=== PATIENT | male | born 1935 | race Caucasian/White ===

== ENCOUNTER 2017-06-24 17:23 | Inpatient (IN) | payer OTHER, BC ==
--- NOTE | 2017-06-24 17:26 | PDOC ---
History of Present Illness - General History Source: Patient, Family Exam Limitations: No Limitations - History of Present Illness Initial Comments: 06/24/17 18:30 The patient is an 82-year-old male, accompanied by and family, with a significant past medical history of anemia, hairy cell leukemia (1995), colonic polyp, and HTN, who presents to the ED with weakness today. As per , the patient has been coughing at night for the past few days. He visited his PCP, Dr. Davis, who had advised the patient that he might have a virus. The patients symptoms progressively worsened after the visit, as his noted that he was not eating well and sleeping more often. This morning the patient noted that his urine appeared red in color so he decided to visit Dr. Vargas office. During his visit, the pt was unable to give a urine sample and was noted to have a low O2 stat. The patient was advised to visit the ED for further evaluation. The patient has been followed by Dr. Vivas for his leukemia for 21 years. He is currently not on chemotherapy. He last received immune therapy 2 years ago which went well. His leukemia is under control and he visits Dr. Vivas's office every month to get blood work done. The patient denies any fever, chills, nausea, vomiting, diarrhea, or abdominal pain. He denies any shortness of breath or chest pain. Social Hx: Social Drinker PCP: Dr. Davis Oncologist: Dr. Vivas <Katja Jackson - Last Filed: 06/24/17 18:39> <Sera Woodard - Last Filed: 06/24/17 21:14> <Adrian Bundy - Last Filed: 06/27/17 10:23> - General Chief Complaint: Weakness Stated Complaint: weakness Time Seen by Provider: 06/24/17 17:24 Past History <Katja Jackson - Last Filed: 06/24/17 18:39> <Sera Woodard - Last Filed: 06/24/17 21:14> - Past Medical History Anemia: Yes Asthma: No Cancer: Yes (HAIRY CELL LEUKEMIA CHEM 1995) Cardiac Disorders: No CVA: No COPD: No CHF: No Dementia: No Diabetes: No GI Disorders: Yes (COLONIC POLYP) Disorders: No HTN: Yes Hypercholesterolemia: No Liver Disease: No Seizures: No Thyroid Disease: No - Surgical History Abdominal Surgery: No Appendectomy: No Cardiac Surgery: No Cholecystectomy: No Lung Surgery: No Neurologic Surgery: No Orthopedic Surgery: Yes (SURGERY ON RIGHT FOOT) - Suicide/Smoking/Psychosocial Hx Smoking History: Former smoker Have you smoked in the past 12 months: No Number of Cigarettes Smoked Daily: 0 If you are a former smoker, when did you quit?: 64 YEARS Hx Alcohol Use: No Drug/Substance Use Hx: No Substance Use Type: None Hx Substance Use Treatment: No <Adrian Bundy - Last Filed: 06/27/17 10:23> - Past Medical History Allergies/Adverse Reactions: Allergies Allergy/AdvReac Type Severity Reaction Status Date / Time No Known Allergies Allergy Verified 06/24/17 17:30 Home Medications: Ambulatory Orders Propranolol HCl [Inderal] 160 mg PO DAILY 12/31/12 Terazosin HCl [Hytrin] 5 mg PO HS 12/31/12 Review of Systems - Review of Systems Able to Perform ROS?: Yes Comments:: 06/24/17 18:30 CONSTITUTIONAL: Present: generalized weakness, fatigue, loss of appetite Absent: fever, chills, diaphoresis HEENT: Absent: rhinorrhea, nasal congestion, throat pain, throat swelling, difficulty swallowing, mouth swelling, ear pain, eye pain, visual Changes CARDIOVASCULAR: Absent: chest pain, syncope, palpitations, irregular heart rate, lightheadedness , peripheral edema RESPIRATORY: Present: cough Absent: shortness of breath, dyspnea with exertion, orthopnea, wheezing, stridor , hemoptysis GASTROINTESTINAL: Absent: abdominal pain, abdominal distension, nausea, vomiting, diarrhea, constipation, melena, hematochezia GENITOURINARY: Present: hematuria Absent: dysuria, frequency, urgency, hesitancy, flank pain, genital pain MUSCULOSKELETAL: Absent: myalgia, arthralgia, joint swelling SKIN: Absent: rash, itching, pallor HEMATOLOGIC/IMMUNOLOGIC: Absent: easy bleeding, easy bruising, lymphadenopathy, frequent infections ENDOCRINE: Absent: unexplained weight gain, unexplained weight loss, heat intolerance, cold intolerance NEUROLOGIC: Absent: headache, focal weakness or paresthesias, dizziness, unsteady gait, seizure, mental status changes, bladder or bowel incontinence PSYCHIATRIC: Absent: anxiety, depression, suicidal or homicidal ideation, hallucinations. <Katja Jackson - Last Filed: 06/24/17 18:39> *Physical Exam - Vital Signs Last Vital Signs Temp Pulse Resp BP Pulse Ox 98.1 F 84 20 113/44 85 L 06/24/17 17:23 06/24/17 17:23 06/24/17 17:23 06/24/17 17:23 06/24/17 17:23 - Physical Exam Comments: 06/24/17 18:32 GENERAL: Well developed, well nourished. Awake and alert. No acute distress. Vital signs showed an initial O2 saturation of 85% which improved with 91-93% with 3 liters of nasal cannula. The rest of the vitals were stable. HEENT: (+)Mucous membranes were somewhat dry. Normocephalic, atraumatic. PERRLA, EOMI. No conjunctival pallor. Sclera are non-icteric. Oropharynx is clear. NECK: Supple. Full ROM. No JVD. Carotid pulses 2+ and symmetric, without bruits. No thyromegaly. No lymphadenopathy. CARDIOVASCULAR: Regular rate and rhythm. No murmurs, rubs, or gallops. Distal pulses are 2+ and symmetric. PULMONARY: (+)Hypoxic but did not complaining of shortness of breath. He appeared mildly tachypneic and dyspneic. There were rales at the left base posteriorly. ABDOMINAL: Soft. Non-tender. Non-distended. No rebound or guarding. No organomegaly. Normoactive bowel sounds. MUSCULOSKELETAL Normal range of motion at all joints. No bony deformities or tenderness. No CVA tenderness. EXTREMITIES: No cyanosis. No clubbing. No edema. No calf tenderness. SKIN: Warm and dry. Normal capillary refill. No rashes. No jaundice. NEUROLOGICAL: Alert, awake, appropriate. Alert and oriented x3. PSYCHIATRIC: Cooperative. Good eye contact. Appropriate mood and affect. <Katja Jackson - Last Filed: 06/24/17 18:39> - Vital Signs Last Vital Signs Temp Pulse Resp BP Pulse Ox 98.1 F 84 22 96/57 91 L 06/24/17 17:23 06/24/17 19:55 06/24/17 19:55 06/24/17 19:55 06/24/17 19:55 <Sera Woodard - Last Filed: 06/24/17 21:14> ED Treatment Course - LABORATORY CBC & Chemistry Diagram: 06/24/17 17:38 06/24/17 17:38 - ADDITIONAL ORDERS Additional order review: Laboratory Results 06/24/17 06/24/17 06/24/17 17:38 17:38 17:38 PT with INR 15.9 H INR 1.43 H Sodium 129 L Potassium 3.4 L Chloride 93 L Carbon Dioxide 24 Anion Gap 12 BUN 53 H D Creatinine 1.5 H D Creat Clearance w eGFR 44.69 Random Glucose 130 H Calcium 8.1 L Total Bilirubin 5.3 H D AST 256 H D ALT 275 H D Alkaline Phosphatase 101 H D Creatine Kinase 27 L Troponin I < 0.03 L Total Protein 5.4 L Albumin 2.0 L D Alcohol, Quantitative 5.3 06/24/17 17:38 RBC 2.89 L MCV 90.0 MCHC 33.1 RDW 17.2 H MPV 8.0 D Neutrophils % 89.0 H D Lymphocytes % 4.8 L D Monocytes % 5.9 D Eosinophils % 0.2 Basophils % 0.1 <Katja Jackson - Last Filed: 06/24/17 18:39> - LABORATORY CBC & Chemistry Diagram: 06/24/17 17:38 06/24/17 17:38 - ADDITIONAL ORDERS Additional order review: Laboratory Results 06/24/17 06/24/17 06/24/17 17:38 17:38 17:38 PT with INR 15.9 H INR 1.43 H Sodium 129 L Potassium 3.4 L Chloride 93 L Carbon Dioxide 24 Anion Gap 12 BUN 53 H D Creatinine 1.5 H D Creat Clearance w eGFR 44.69 Random Glucose 130 H Calcium 8.1 L Total Bilirubin 5.3 H D AST 256 H D ALT 275 H D Alkaline Phosphatase 101 H D Creatine Kinase 27 L Troponin I < 0.03 L Total Protein 5.4 L Albumin 2.0 L D Alcohol, Quantitative 5.3 06/24/17 17:38 RBC 2.89 L MCV 90.0 MCHC 33.1 RDW 17.2 H MPV 8.0 D Neutrophils % 89.0 H D Lymphocytes % 4.8 L D Monocytes % 5.9 D Eosinophils % 0.2 Basophils % 0.1 - Medications Given in the ED: ED Medications Discontinued Medications Generic Name Dose Route Start Last Admin Trade Name Freq PRN Reason Stop Dose Admin Sodium Chloride 250 mls @ 500 mls/hr 06/24/17 18:49 06/24/17 18:54 Normal Saline - IV 06/24/17 19:18 500 mls/hr ASDIR STA Administration Vancomycin HCl 1,000 mg/ 250 mls @ 200 mls/hr 06/24/17 19:17 06/24/17 19:35 Dextrose IVPB 06/24/17 20:31 200 mls/hr ONCE ONE Administration Piperacillin/Tazobactam/Dextrose 3.375 gm 06/24/17 19:18 06/24/17 19:38 Zosyn 3.375gm Ivpb (Premix) IVPB 06/24/17 19:19 3.375 gm ONCE ONE Administration <Sera Woodard - Last Filed: 06/24/17 21:14> - LABORATORY CBC & Chemistry Diagram: 06/27/17 05:45 06/27/17 05:45 <Adrian Bundy - Last Filed: 06/27/17 10:23> Medical Decision Making - Medical Decision Making Patient with low oxygen saturation but no acute respiratory distress. Chest x- ray reveals extensive infiltrate in the left lung. History of hairy cell leukemia for many years which is in remission, no treatment for 2 years Physical exam reveals no tachypnea or dyspnea, but oxygen saturation on room air in the mid 80s, improving to 90 with 2 L nasal cannula. There are rales at the left base posteriorly. Dr. Vivas, oncologist contacted. He states that the patient is stable with regard to his leukemia. He runs white blood count of approximately 1.5, normal H &H, and 80-100,000 platelets. He has had no recent serious medical problems Cultures were obtained and empiric antibiotics were begun. Patient signed out to Dr. Woodard 7 PM pending admission to the hospitalist service and further medical management. Stable clinically and hemodynamically during her entire ER stay. <Adrian Bundy - Last Filed: 06/27/17 10:23> *DC/Admit/Observation/Transfer - Attestations Scribe Attestion: 06/24/17 18:36 Documentation prepared by Katja Jackson, acting as ophthalmic medical technician for Adrian Bundy MD. <Katja Jackson - Last Filed: 06/24/17 18:39> - Discharge Dispostion Admit: Yes <Sera Woodard - Last Filed: 06/24/17 21:14> <Adrian Bundy - Last Filed: 06/27/17 10:23> Diagnosis at time of Disposition: Pneumonia Qualifiers: Pneumonia type: due to unspecified organism Laterality: left Lung location: unspecified part of lung Qualified Code(s): J18.9 - Pneumonia, unspecified organism - Discharge Dispostion Condition at time of disposition: Guarded
[2017-06-24 17:51] LABS: BASOPHIL 0.1 % (0-2.0); EOSINOPHIL 0.2 % (0-4.5); MCH 29.8 pg (25.7-33.7); MCHC 33.1 g/dl (32.0-35.9); PLATELET COUNT 207 K/MM3 (134-434); RDW 17.2 % (11.9-15.9); WHITE BLOOD COUNT 3.5 K/mm3 (4.0-10.8)
[2017-06-24 17:57] LABS: INR 1.43 (0.82-1.09); PROTHROMBIN TIME (PATIENT) 15.9 SEC (10.2-13.0)
[2017-06-24 18:04] LABS: ALK PHOS 101 U/L (32-92); ANION GAP 12 (8-16); BILIRUBIN,TOTAL 5.3 mg/dl (0.2-1.0); CALCIUM 8.1 mg/dl (8.4-10.2); CO2 24 mmol/L (22-28); CPK 27 IU/L (39-308); CREATININE 1.5 mg/dl (0.6-1.3); GLUCOSE,RANDOM 130 mg/dl (74-106); SGOT/AST 256 U/L (10-42); SGPT/ALT 275 U/L (10-40); TOT PROT 5.4 g/dl (6.4-8.3)
[2017-06-24 18:14] LABS: TROPONIN I (DFP) < 0.03 ng/ml (0.03-0.50)
[2017-06-24] MEDS ORDERED: SODIUM CHLORIDE 250 ML IV STA (18:49)
[2017-06-24] MEDS ORDERED: SODIUM CHLORIDE 1,000 ML IV SCH (19:00)
[2017-06-24] MEDS ORDERED: VANCOMYCIN 1,000 MG in DEXTROSE 5%-WATER - 250 ML IVPB ONE (19:17)
[2017-06-24] MEDS ORDERED: PIPERACIL/TAZOB 3.375 GM 3.375 GM/50 ML PREMIX IVPB ONE (19:18)
[2017-06-24] MEDS ORDERED: VANCOMYCIN 1,000 MG VIAL (RESTRICTED TO ID ONLY) ONE (19:37)
[2017-06-24] MEDS ORDERED: PIPERACILLIN/TAZOBACTAM 3.375 GM VIAL IVPB ONE (19:38)
[2017-06-24] MEDS ORDERED: PIPERACILLIN/TAZOB 3.375 GM/50 ML PRE-DOCKED IVPB ONE (19:45)
--- NOTE | 2017-06-24 20:26 | PDOC ---
*Physical Exam - Vital Signs Last Vital Signs Temp Pulse Resp BP Pulse Ox 98.1 F 84 22 96/57 91 L 06/24/17 17:23 06/24/17 19:55 06/24/17 19:55 06/24/17 19:55 06/24/17 19:55 ED Treatment Course - LABORATORY CBC & Chemistry Diagram: 06/24/17 17:38 06/24/17 17:38 - ADDITIONAL ORDERS Additional order review: Laboratory Results 06/24/17 06/24/17 06/24/17 17:38 17:38 17:38 PT with INR 15.9 H INR 1.43 H Sodium 129 L Potassium 3.4 L Chloride 93 L Carbon Dioxide 24 Anion Gap 12 BUN 53 H D Creatinine 1.5 H D Creat Clearance w eGFR 44.69 Random Glucose 130 H Calcium 8.1 L Total Bilirubin 5.3 H D AST 256 H D ALT 275 H D Alkaline Phosphatase 101 H D Creatine Kinase 27 L Troponin I < 0.03 L Total Protein 5.4 L Albumin 2.0 L D Alcohol, Quantitative 5.3 06/24/17 17:38 RBC 2.89 L MCV 90.0 MCHC 33.1 RDW 17.2 H MPV 8.0 D Neutrophils % 89.0 H D Lymphocytes % 4.8 L D Monocytes % 5.9 D Eosinophils % 0.2 Basophils % 0.1 - Medications Given in the ED: ED Medications Discontinued Medications Generic Name Dose Route Start Last Admin Trade Name Freq PRN Reason Stop Dose Admin Sodium Chloride 250 mls @ 500 mls/hr 06/24/17 18:49 06/24/17 18:54 Normal Saline - IV 06/24/17 19:18 500 mls/hr ASDIR STA Administration Piperacillin/Tazobactam/Dextrose 3.375 gm 06/24/17 19:18 06/24/17 19:38 Zosyn 3.375gm Ivpb (Premix) IVPB 06/24/17 19:19 3.375 gm ONCE ONE Administration Progress Note - Progress Note Progress Note: Care of this patient received from Dr. Kirby. Case discussed with ROXANA Pugh. Patient admitted with acute pneumonia (left-sided consolidation) to [facility] ( ) Clinical presentation and laboratory evaluation also revealed DEWAYNE, likely related to poor oral intake over the last few days and subsequent dehydration. Patient received vancomycin and Zosyn IV as per Dr. Whitt here in the emergency room. He continued to be comfortable without significant dyspnea or other acute complaints during the time he was awaiting transfer upstairs. Lactic acid level was added to his laboratory evaluation. (Result = 1.6) *DC/Admit/Observation/Transfer Diagnosis at time of Disposition: Pneumonia - Discharge Dispostion Condition at time of disposition: Guarded - Referrals - Patient Instructions - Post Discharge Activity
--- NOTE | 2017-06-24 22:42 | HP ---
CHIEF COMPLAINT: Malaise, cough PCP: Susan; Hematology: Sangeetha HISTORY OF PRESENT ILLNESS: This is an 82 year old male with a past medical history of anemia, hairy cell leukemia, colon polyp, HTN who presented to the ED with general malaise, lethargy and cough. He was seen by his PCP one week ago who felt it was viral but when his symptoms became worse he went to his PCP again today who noted low oxygen sat and sent pt to the ED. Pt also reports discolored urine last week, states it was red and so it must be blood. Upon exam pt remains lethargic, mild cough. Pt states cough is productive of yellow phlegm. pt denies abdominal pain , diarrhea, vomiting, constipation, change in color or consistency of stool. ER course was notable for: (1) CXR c/w PNA (2) WBC 3.5 (3) elevated LFTs Recent Travel: pt denies PAST MEDICAL HISTORY: HTN anemia haiury cell leukemia x 21 years, last treatment 2y ago, immunotherapy colon polyp, normal colonoscopy 2012 atomic test PAST SURGICAL HISTORY: R foot surgery Social History: Smoking: pt denies Alcohol: pt denies Drugs: pt denies Family History: atomic test 1950s mother age 98, old age father age 63, in his sleep 2 siblings, both with HTN 2 children, one accidental , one no medical problems Allergies No Known Allergies Allergy (Verified 06/24/17 17:30) HOME MEDICATIONS: 3 Medication Instructions Recorded Propranolol HCl [Inderal] 160 mg PO DAILY 12/31/12 Terazosin HCl [Hytrin] 5 mg PO HS 12/31/12 REVIEW OF SYSTEMS CONSTITUTIONAL: Present: generalized weakness, malaise Absent: fever, chills, diaphoresis, loss of appetite, weight change HEENT: Absent: rhinorrhea, nasal congestion, throat pain, throat swelling, difficulty swallowing, mouth swelling, ear pain, eye pain, visual changes CARDIOVASCULAR: Absent: chest pain, syncope, palpitations, irregular heart rate, lightheadedness , peripheral edema RESPIRATORY: Present: cough, shortness of breath Absent: dyspnea with exertion, orthopnea, wheezing, stridor, hemoptysis GASTROINTESTINAL: Absent: abdominal pain, abdominal distension, nausea, vomiting, diarrhea, constipation, melena, hematochezia GENITOURINARY: Present: hematuria Absent: dysuria, frequency, urgency, hesitancy, flank pain, genital pain MUSCULOSKELETAL: Absent: myalgia, arthralgia, joint swelling, back pain, neck pain SKIN: Absent: rash, itching, pallor HEMATOLOGIC/IMMUNOLOGIC: Absent: easy bleeding, easy bruising, lymphadenopathy, frequent infections ENDOCRINE: Absent: unexplained weight gain, unexplained weight loss, heat intolerance, cold intolerance NEUROLOGIC: Absent: headache, focal weakness or paresthesias, dizziness, unsteady gait, seizure, mental status changes, bladder or bowel incontinence PSYCHIATRIC: Absent: anxiety, depression, suicidal or homicidal ideation, hallucinations. PHYSICAL EXAMINATION Vital Signs - 24 hr 3 06/24/17 06/24/17 06/24/17 17:23 19:09 19:55 Temperature 98.1 F Pulse Rate 84 84 Pulse Rate [ 78 Apical] Respiratory 20 25 H 22 Rate Blood Pressure 113/44 Blood Pressure 95/54 96/57 [Right Arm] O2 Sat by Pulse 85 L 91 L 91 L Oximetry (%) GENERAL: Awake, alert, and fully oriented, in no acute distress. HEAD: Normal with no signs of trauma. EYES: Pupils equal, round and reactive to light, extraocular movements intact, sclera icteric, conjunctiva clear. No lid lag. EARS, NOSE, THROAT: Ears normal, nares patent, oropharynx clear without exudates. Moist mucous membranes. NECK: Normal range of motion, supple without lymphadenopathy, JVD, or masses. LUNGS: clear to auscultation right lung field, diminished left upper, crackles left lower. No wheezes. No accessory muscle use. HEART: Regular rate and rhythm, normal S1 and S2 without murmur, rub or gallop. ABDOMEN: Soft, nontender, not distended, normoactive bowel sounds, no guarding, no rebound, no masses. No hepatomegaly or splenomegaly. MUSCULOSKELETAL: Normal range of motion at all joints. No bony deformities or tenderness. No CVA tenderness. UPPER EXTREMITIES: 2+ pulses, warm, well-perfused. No cyanosis. No clubbing. No peripheral edema. LOWER EXTREMITIES: 2+ pulses, warm, well-perfused. No calf tenderness. No peripheral edema. NEUROLOGICAL: Cranial nerves II-XII intact. Normal speech. Normal gait. PSYCHIATRIC: Cooperative. Good eye contact. Appropriate mood and affect. SKIN: Warm, dry, normal turgor, no rashes or lesions noted, normal capillary refill. Laboratory Results - last 24 hr 3 06/24/17 06/24/17 06/24/17 06/24/17 17:38 17:38 17:38 21:01 WBC 3.5 L D RBC 2.89 L Hgb 8.6 L D Hct 26.0 L D MCV 90.0 MCH 29.8 MCHC 33.1 RDW 17.2 H Plt Count 207 D MPV 8.0 D Neutrophils % 89.0 H D Lymphocytes % 4.8 L D Monocytes % 5.9 D Eosinophils % 0.2 Basophils % 0.1 PT with INR 15.9 H INR 1.43 H Sodium 129 L Potassium 3.4 L Chloride 93 L Carbon Dioxide 24 Anion Gap 12 BUN 53 H D Creatinine 1.5 H D Creat Clearance w eGFR 44.69 Random Glucose 130 H Lactic Acid 1.6 Calcium 8.1 L Total Bilirubin 5.3 H D AST 256 H D ALT 275 H D Alkaline Phosphatase 101 H D Creatine Kinase 27 L Troponin I < 0.03 L Total Protein 5.4 L Albumin 2.0 L D Alcohol, Quantitative 5.3 CXR: cardiomegaly and diffuse left lung consolidation ECG: NSR Vent rate 82, QTC [address]/T changes ASSESSMENT/PLAN: 82yM with PMH HTN, anemia, hairy cell leukemia, colon polyp, HTN presented with generalized weakness, lethargy, SOB. Pneumonia-community acquired - received zosyn and vanc in ED - Change to zithromax and ceftriaxone as no recent healthcare facility exposure - cont oxygen 3L NC to maintain ox sat above 90 - Consider pulmonology consult - consider chest CT Elevated LFTs - unknown etiology. Denies eating at [employer] (recent Hep A outbreak) - hepatitis acute panel, hepatic function panel in am - abdominal sono in am DEWAYNE - likely due to hypovolemia - NS @ 150cc/hr overnight then reassess ? BPH - pt on terazosin but not in history, pt initially did not void, bladder scan done 615, but when pt informed of cath voided 600mL - cont terazosin and cont monitoring urine output anemia/leukemia - appears stable at present. Cont to monitor CBC DVT PPX - heparin 5000u q8h FEN - NS @ 150cc/hr overnight, then reassess - BMP in am - NPO for sono in am Dispo: pt currently requires inpatient management of his emergent condition. Visit type - Emergency Visit Emergency Visit: Yes ED Registration Date: 06/24/17 Care time: The patient presented to the Emergency Department on the above date and was hospitalized for further evaluation of their emergent condition. - New Patient This patient is new to me today: Yes Date on this admission: 06/24/17 - Critical Care Critical Care patient: No
[2017-06-24 23:26] LABS: PH,URINE 5.5 (4.5-8); URINE APPEARANCE Cloudy; URINE BILIRUBIN 2+ (NEGATIVE); URINE BLOOD Negative (NEGATIVE); URINE GLUCOSE (UA) Negative (NEGATIVE); URINE KETONE Negative (NEGATIVE); URINE LEUK ESTERASE Negative (NEGATIVE); URINE NITRITE Negative (NEGATIVE); URINE UROBILINOGEN >=8.0 E.U./dl (0.2-1.0)
[2017-06-24 23:27] LABS: URINE COLOR DK YELLOW; URINE PROTEIN 1+ (NEGATIVE)
[2017-06-24 23:35] LABS: URINE BACTERIA MODERATE /hpf (NEGATIVE); URINE RBC 0-1 /hpf (0-3)
[2017-06-24 23:46] VITALS: BMI 25.7
[2017-06-25] MEDS ORDERED: CEFTRIAXONE 1 G/50 ML PREMIX 1 ML IVPB SCH (02:00)
[2017-06-25] MEDS ORDERED: AZITHROMYCIN IVPB 500 MG in DEXTROSE 5%-WATER - 250 ML IVPB SCH (02:00)
[2017-06-25] MEDS: HEPARIN NA (PORCINE) 5,000 UNITS/ML 1ML VIAL SQ SCH ×3 (06:31→21:36)
--- NOTE | 2017-06-25 07:46 | PN ---
Physical Exam: SUBJECTIVE: Patient seen and examined, patient reports ongoing cough, denies any chest pain or shortness of breath. OBJECTIVE: patient is a 82 y/o male with a past medical history of anemia, hairy cell leukemia, colon polyp, and HTN. Patient was admitted from the emergency department for emergent condition. Vital Signs Period Temp Pulse Resp BP Sys/Puentes Pulse Ox Last 24 Hr 98.1 F-98.4 F 78-90 18-25 95-113/44-57 85-93 GENERAL: The patient is awake, alert, and fully oriented, in no acute distress. HEAD: Normal with no signs of trauma. EYES: PERRL, extraocular movements intact, sclera anicteric, conjunctiva clear. No ptosis. ENT: Ears normal, nares patent, oropharynx clear without exudates, moist mucous membranes. NECK: Trachea midline, full range of motion, supple. LUNGS: Breath sounds equal, clear to apexes, crackles to left base, moderately diminished, no wheezes, no accessory muscle use. HEART: Regular rate and rhythm, S1, S2 without murmur, rub or gallop. ABDOMEN: Soft, nontender, nondistended, normoactive bowel sounds, no guarding, no rebound, + hepatosplenomegaly, no masses. EXTREMITIES: 2+ pulses, warm, well-perfused, no edema. NEUROLOGICAL: Cranial nerves II through XII grossly intact. Normal speech, gait not observed. PSYCH: Normal mood, normal affect. SKIN: + jaundice, Warm, dry, normal turgor, no rashes or lesions noted Laboratory Results - last 24 hr CBC WBC 2.5 K/mm3 (4.0-10.8) L 06/25/17 07:30 RBC 2.42 M/mm3 (4.00-5.60) L 06/25/17 07:30 Hgb 7.2 GM/dl (11.7-16.9) L D 06/25/17 07:30 Hct 22.0 % (35.4-49) L D 06/25/17 07:30 MCV 90.9 fl (80-96) 06/25/17 07:30 MCH 29.9 pg (25.7-33.7) 06/25/17 07:30 MCHC 32.9 g/dl (32.0-35.9) 06/25/17 07:30 RDW 17.3 % (11.9-15.9) H 06/25/17 07:30 Plt Count 177 K/MM3 (134-434) 06/25/17 07:30 MPV 8.5 fl (7.5-11.1) 06/25/17 07:30 Neutrophils % No Result Required. 06/25/17 07:30 Neutrophils % (Manual) 89.0 % (42.8-82.8) H 06/25/17 07:30 Band Neutrophils % 11.0 % (0-10) H 06/25/17 07:30 Lymphocytes % No Result Required. 06/25/17 07:30 Monocytes % 5.9 % (3.8-10.2) D 06/24/17 17:38 Eosinophils % 0.2 % (0-4.5) 06/24/17 17:38 Basophils % 0.1 % (0-2.0) 06/24/17 17:38 Platelet Estimate Adequate 06/25/17 07:30 Platelet Comment No Result Required. 06/25/17 07:30 CMP Sodium 134 mmol/L (136-145) L 06/25/17 07:30 Potassium 3.4 mmol/L (3.5-5.1) L 06/25/17 07:30 Chloride 100 mmol/L (98-107) 06/25/17 07:30 Carbon Dioxide 25 mmol/L (22-28) 06/25/17 07:30 Anion Gap 9 (8-16) 06/25/17 07:30 BUN 47 mg/dl (7-18) H 06/25/17 07:30 Creatinine 1.3 mg/dl (0.6-1.3) 06/25/17 07:30 Creat Clearance w eGFR 44.69 (>60) 06/24/17 17:38 Random Glucose 143 mg/dl (74-106) H 06/25/17 07:30 Lactic Acid 1.6 mmol/L (0.4-2.0) 06/24/17 21:01 Calcium 7.4 mg/dl (8.4-10.2) L 06/25/17 07:30 Phosphorus 4.0 mg/dl (2.5-4.6) 06/25/17 07:30 Magnesium 2.2 mg/dL (1.8-2.4) 06/25/17 07:30 Total Bilirubin 4.3 mg/dl (0.2-1.0) H 06/25/17 07:30 Direct Bilirubin 3.0 mg/dL (0.0-0.3) H 06/25/17 07:30 AST 131 U/L (10-42) H D 06/25/17 07:30 ALT 182 U/L (10-40) H D 06/25/17 07:30 Alkaline Phosphatase 74 U/L (32-92) D 06/25/17 07:30 Creatine Kinase 27 IU/L (39-308) L 06/24/17 17:38 Troponin I < 0.03 ng/ml (0.03-0.50) L 06/24/17 17:38 Total Protein 4.5 g/dl (6.4-8.3) L 06/25/17 07:30 Albumin 1.6 g/dl (3.5-5.0) L 06/25/17 07:30 Total Amylase 45 U/L (25-125) 06/25/17 07:30 Lipase 43 U/L (22-51) 06/25/17 07:30 Active Medications Generic Name Dose Route Start Last Admin Trade Name Freq PRN Reason Stop Dose Admin Heparin Sodium (Porcine) 5,000 unit 06/25/17 06:00 06/25/17 06:31 Heparin - SQ 5,000 unit TID JIHAN Administration Sodium Chloride 1,000 mls @ 150 mls/hr 06/24/17 19:00 06/24/17 19:00 Normal Saline - IV 150 mls/hr ASDIR JIHAN Administration Azithromycin 500 mg/ Dextrose 250 mls @ 250 mls/hr 06/25/17 02:00 06/25/17 01 :15 IVPB 250 mls/hr DAILY JIHAN Administration CEFTRIAXONE 1 G/50 ML PREMIX 1 mls @ 2 mls/hr 06/25/17 02:00 06/25/17 01:14 Ceftriaxone 1 Gm-D5w Bag IVPB 2 mls/hr DAILY JIHAN Administration Propranolol HCl 160 mg 06/25/17 10:00 Inderal La - PO DAILY JIHAN Terazosin HCl 5 mg 06/25/17 22:00 Hytrin - PO HS JIHAN IMAGING chest xray cardiomegly left lung consilidation ASSESSMENT/PLAN: 1) pulmonary Pneumonia-community acquired - zosyn/van (06/24/17), zithromax (06/24-) and rocephin (06/24-), continue, no leukocytosis, patient is afebrile - pending urine antigens, blood cultures - keep spo2 above 92%, with supplemental O2 as needed 2) GI tranasanimits - likely secondary to pna vs hairy cell leukaemia - abdominal ultrasound--> hepatomegaly, gallbladder sludge, no acute cholecysitis - ast/alt trending downward, alkphos wnl, amylase/lipase wnl - pending hepatitis panel - GI, Dr Traore consulted and following 3) nephrology acute kidney injury - creatine 1.3 close to baseline of 1.1, secondary to hypovolemia - repeat bmp in am, close monitoring, strict i/o 4) heme/onc normocytic anemia - hgb 7.2, likely dilutional vs hx of hairy cell leukaemia - repeat cbc in am, will transfuse if less than 7 - appreciate oncology input, Dr Vivas, patient's private oncologist 5) BPH - continue terazosin, no signs of urinary retention noted on exam - monitor i/o DVT PPX - heparin 5000u q8h FEN - low sodium diet - hyponatremia secondary to hypovolamia sodium trending upward - replete potassium Dispo: pt currently requires inpatient management of his emergent condition. Visit type - Emergency Visit Emergency Visit: Yes ED Registration Date: 06/24/17 Care time: The patient presented to the Emergency Department on the above date and was hospitalized for further evaluation of their emergent condition. - New Patient This patient is new to me today: Yes Date on this admission: 06/25/17 - Critical Care Critical Care patient: No - Discharge Referral Referred to [facility] No
[2017-06-25 07:56] LABS: MCH 29.9 pg (25.7-33.7); MCHC 32.9 g/dl (32.0-35.9); MEAN CELL VOLUME 90.9 fl (80-96); MEAN PLT VOLUME 8.5 fl (7.5-11.1); PLATELET COUNT 177 K/MM3 (134-434); RDW 17.3 % (11.9-15.9); WHITE BLOOD COUNT 2.5 K/mm3 (4.0-10.8)
[2017-06-25 08:04] LABS: ALBUMIN 1.6 g/dl (3.5-5.0); ALK PHOS 74 U/L (32-92); ANION GAP 9 (8-16); BILIRUBIN,TOTAL 4.3 mg/dl (0.2-1.0); CALCIUM 7.4 mg/dl (8.4-10.2); CO2 25 mmol/L (22-28); CREATININE 1.3 mg/dl (0.6-1.3); GLUCOSE,RANDOM 143 mg/dl (74-106); MAGNESIUM 2.2 mg/dL (1.8-2.4); SGOT/AST 131 U/L (10-42); SGPT/ALT 182 U/L (10-40); TOT PROT 4.5 g/dl (6.4-8.3)
[2017-06-25 08:42] LABS: PLATELET ESTIMATE ADEQUATE
--- NOTE | 2017-06-25 08:53 | EKG ---
Test Reason : Blood Pressure : / mmHG Vent. Rate : 082 BPM Atrial Rate : 082 BPM P-R Int : 168 ms QRS Dur : 092 ms QT Int : 388 ms P-R-T Axes : 045 -05 051 degrees QTc Int : 453 ms NORMAL SINUS RHYTHM NORMAL ECG NO PREVIOUS ECGS AVAILABLE Confirmed by SHAD VERDUZCO MD ([id number] on 06/25/2017 8:53:06 AM Referred By: MD LANG Confirmed By:SHAD VERDUZCO MD
[2017-06-25] MEDS ORDERED: POTASSIUM CHLORIDE TABS 20 MEQ TABLET.ER (FP) PO ONE (10:30)
[2017-06-25 10:33] LABS: AMYLASE 45 U/L (25-125)
[2017-06-25] MEDS ORDERED: PT OWN MED DRAWER 7, Y5N ONE (10:59)
--- NOTE | 2017-06-25 11:00 | PN ---
Progress Note (short form) - Note Progress Note: Patient seen and chart/labs reviewed. Consult note dictated. Patient with likely elevated LFTs due to combination of underlying infection/ pneumonia (elevated transaminases) and Gilbert's syndrome - causing rise in bilirubin during the acute infection. Today's LFTs are improving and sonogram shows gallstones but no biliary ductal dilatation of obstruction (and alk phos -normal) Patient without abdominal pain and states he is hungry. Rec : follow LFTs advance diet as tolerated if bili remains elevated,obtain direct/indirect fractionation of bilirubin( elevated unconjugated bili in Gilbert's)
[2017-06-25] MEDS: ALBUTEROL SO4 2.5/IPRATROPIUM 0.5 INH SOL 3 ML VIAL.NEB. NEB SCH ×2 (11:41→17:51)
[2017-06-25] MEDS ORDERED: SODIUM CHLORIDE 0.9%/KCL 20 MEQ/1,000 ML INFUS.BAG IV SCH (13:00)
--- NOTE | 2017-06-25 13:39 | CONS ---
DATE OF CONSULTATION: 06/25/2017 REASON FOR CONSULTATION: Asked to evaluate this 82-year-old gentleman with elevated liver chemistries and mild jaundice. HISTORY OF PRESENT ILLNESS: The patient is an 82-year-old gentleman with a diagnosis of hairy cell leukemia, benign colonic polyps, hypertension, and anemia. He was admitted via the emergency room with malaise, lethargy, and cough and felt to most likely have a pneumonia. The patient had a chest x-ray also consistent with pneumonia, and his blood work at the time of admission showed a total bilirubin of 5.3 with an AST of 258, ALT of 275, and an alkaline phosphatase of 101. He had also a mildly low serum sodium of 129. His white count was 3.5 with a hemoglobin of 8.6, hematocrit 26, and a platelet count of 207. The patient has received IV antibiotics and has had an x-ray which showed diffuse left lung consolidation consistent with pneumonia. He also had a sonogram of the upper abdomen which showed gallbladder sludge and stones without evidence of cholecystitis, a mildly enlarged liver, and no evidence of biliary ductal dilatation. PHYSICAL EXAMINATION: General: The patient is a well-developed, elderly gentleman appearing comfortable, breathing with some nasal oxygen. HEENT: He does appear to have slight conjunctival icterus. Lungs: He has decreased breath sounds in the left lung. Cardiac: Regular rate and rhythm. Abdomen: Soft. Normoactive bowel sounds and no tenderness or mass. Patient with elevated liver chemistries in a pattern consistent with a hepatitis and inflammation rather than obstruction. The patient may have underlying syndrome accounting for the elevated bilirubin in the setting of an acute illness, i.e. pneumonia. His transaminases are trending down with today's levels being an AST of 131, an ALT of 182, alkaline phosphatase 74, and total bilirubin of 4.3. There is no evidence of biliary obstruction, although the patient does have stones in the gallbladder on sonogram. Would follow clinically, allow p.o. as tolerated, and expect the liver chemistries to resolve to baseline as the underlying illness/pneumonia responds to treatment. We will follow as needed. EDOUARD GAFFNEY M.D. /[id number]
[2017-06-25] MEDS ORDERED: ALBUTEROL SO4 2.5/IPRATROPIUM 0.5 INH SOL 3 ML VIAL.NEB. NEB ONE (14:00)
--- NOTE | 2017-06-25 16:55 | PN ---
Progress Note (short form) - Note Progress Note: seen 2:30 82 yom well-known to Dr Sangeetha johnson h/o HCL and MDS. No recent tx. Has chronic pancytopenia. Eval in ED w subacute weakness, "red" urine,sob. Found to have hypoxic pna, dehydration, inc in bili IVF, abx started. Developed low gr fever today PE sleepy, but conversant MS intact icteric lungs-dec BS L CVS-tachy S1S2 abd-soft, NT ext-no edema Imp: hypoxic pna, bkd MDS/HCL; non-neutropenic rec'd aggressive IVF , abx, cxs neg thus far h/h dec below baseline (hb 9-10 baseline) and further dilutional effect; would xfuse if hb<7 next draw;careful attn to fluid status for CT when stable
[2017-06-25] MEDS ORDERED: FUROSEMIDE 40 MG/4 ML INJECTABLE VIAL ONE (16:56)
[2017-06-25] MEDS ORDERED: FUROSEMIDE 40 MG/4 ML INJECTABLE VIAL IVPUSH ONE (17:30)
[2017-06-25 18:27] LABS: MCH 29.7 pg (25.7-33.7); MCHC 32.8 g/dl (32.0-35.9); MEAN CELL VOLUME 90.7 fl (80-96); MEAN PLT VOLUME 8.2 fl (7.5-11.1); PLATELET COUNT 208 K/MM3 (134-434); RDW 16.7 % (11.9-15.9); WHITE BLOOD COUNT 3.6 K/mm3 (4.0-10.8)
[2017-06-25] MEDS: TERAZOSIN HCL 5 MG CAPSULE PO SCH ×2 (21:14→21:44)
[2017-06-25] MEDS ORDERED: CEFTRIAXONE 1 G/50 ML PREMIX 50 ML IVPB SCH (22:00)
[2017-06-25] MEDS ORDERED: AZITHROMYCIN IVPB 250 ML IVPB SCH (22:00)
[2017-06-26] MEDS ORDERED: SODIUM CHLORIDE 1,000 ML IV STA (00:15)
[2017-06-26 00:41] LABS: ARTERIAL BLD GAS O2 SATURATION 97.3 % (90-98.9); ARTERIAL BLOOD GAS BASE EXCESS 1.5 meq/l (-2-2); ARTERIAL BLOOD GAS HCO3 24.5 meq/L (22-26); ARTERIAL BLOOD GAS PO2 71.5 mmHg (68-100); ARTERIAL BLOOD GAS pH 7.49 (7.35-7.45)
[2017-06-26 00:42] LABS: ALLENS TEST POSITIVE; ART PUNCT SITE RIGHT RADIAL
[2017-06-26 00:43] LABS: LPM/O2% 87; PT. ON O2? YES
[2017-06-26] MEDS ORDERED: REFRIGERATED ANITBIOTICS ONE (00:45)
[2017-06-26] MEDS ORDERED: ACETAMINOPHEN 650 MG SUPP.RECT PR ONE (00:47)
--- NOTE | 2017-06-26 00:48 | HOSP ---
Subjective - Review of Symptoms Events since last encounter: Pt noted with low BP on routine vital signs @10pm, repeated and BP lower at 1145pm. Pt noted to be more confused than yesterday, Unable to tell me where he is and telling me he takes a medication in the morning that is 5000BTUs. Denies increased SOB or cough but ox sat persistently 87-91 today on 4LNC. Now sat 88 on 4LNC. Physical Examination Vital Signs: Vital Signs Temperature 98.8 F 06/25/17 22:00 Pulse Rate 85 06/25/17 22:00 Respiratory Rate 20 06/25/17 22:00 Blood Pressure 89/37 06/25/17 22:00 O2 Sat by Pulse Oximetry (%) 87 L 06/25/17 22:00 BP 78/41 T100.5R P84 R24 Cardiovascular: Yes: Regular Rate and Rhythm, S1, S2. No: Murmur, Rub Respiratory: Yes: Other (crackles and diminished throughout left lung field, crackles right 1/3 way up) Gastrointestinal: Yes: Normal Bowel Sounds, Soft Labs: CBC, BMP 06/25/17 18:00 06/25/17 07:30 ABG Results ABG pH 7.49 (7.35-7.45) H 06/26/17 00:09 ABG pCO2 at Pt Temp 32.1 mmHg (35-45) L 06/26/17 00:09 ABG pO2 at Pt Temp 71.5 mmHg (68-100) 06/26/17 00:09 ABG HCO3 24.5 meq/L (22-26) 06/26/17 00:09 ABG O2 Sat (Measured) 97.3 % (90-98.9) 06/26/17 00:09 ABG O2 Content 7.5 % vol (15-22) L* 06/26/17 00:09 ABG Base Excess 1.5 meq/l (-2-2) 06/26/17 00:09 Hospitalist Encounter Assessment: Pneumonia/sepsis with hypotension - now with low bp, not responsive to 500cc bolus - DW ICU [employer], will transfer to [facility] ICU - repeat labs ordered - ABG done - family requesting everything be done, may need pressors if BP unresponsive to fluid resuscitation. - tylenol 650PR given for temp 100.5 - DW and daughter. - change antibiotic back to vanc / zosyn, ID consult - dc propranolol and terazosin - influenza swab - pulm/crit care consult Critical Care Total Critical Care Time (in minutes): 70 Critical Care Statement: The care of this patient involved high complexity decision making to prevent further life threatening deterioration of the patient 's condition and/or to evaluate & treat vital organ system(s) failure or risk of failure.
[2017-06-26] MEDS: SODIUM CHLORIDE 1,000 ML IV SCH ×2 (01:49→22:33)
[2017-06-26 02:28] LABS: BASOPHIL 0.1 % (0-2.0); EOSINOPHIL 0.3 % (0-4.5); MCH 29.4 pg (25.7-33.7); MCHC 32.6 g/dl (32.0-35.9); MEAN CELL VOLUME 90.2 fl (80-96); MEAN PLT VOLUME 8.6 fl (7.5-11.1); NEUTROPHILS 93.2 % (42.8-82.8); PLATELET COUNT 144 K/MM3 (134-434)
[2017-06-26 02:43] LABS: ANION GAP 14 (8-16); CO2 22 mmol/L (21-32); CREATININE 1.2 mg/dL (0.7-1.3); GLUCOSE,RANDOM 152 mg/dL (74-106); MAGNESIUM 2.2 mg/dL (1.8-2.4); PHOSPHOROUS 2.9 mg/dL (2.5-4.9)
[2017-06-26 02:55] LABS: CALCIUM 6.7 mg/dL (8.5-10.1)
[2017-06-26] MEDS ORDERED: VANCOMYCIN 1,250 MG in DEXTROSE 5%-WATER - 250 ML IVPB ONE (03:39)
[2017-06-26] MEDS ORDERED: PIPERACILLIN/TAZOB 4.5 GM/100 ML PREMIX BAG IVPB ONE (03:39)
[2017-06-26 04:12] LABS: MCH 29.6 pg (25.7-33.7); MCHC 32.4 g/dl (32.0-35.9); MEAN CELL VOLUME 91.3 fl (80-96); PLATELET COUNT 141 K/MM3 (134-434); RDW 17.7 % (11.9-15.9)
[2017-06-26] MEDS ORDERED: NOREPINEPHRINE BITARTRATE 8,000 MCG in SODIUM CHLORIDE 0.45% 992 ML IV SCH (04:15)
[2017-06-26] MEDS ORDERED: NOREPINEPHRINE BITARTRATE 4 MG/4 ML ML IV ONE ×2 (04:16→14:39)
[2017-06-26 04:17] LABS: WHITE BLOOD COUNT 1.5 K/mm3 (4.0-10.0)
[2017-06-26 04:19] LABS: WHITE BLOOD COUNT 1.5 K/mm3 (4.0-10.0)
[2017-06-26] MEDS ORDERED: NOREPINEPHRINE BITARTRATE 8,000 MCG in DEXTROSE 5%-WATER - 492 ML IV SCH ×2 (04:45→05:00)
--- NOTE | 2017-06-26 04:52 | CONSULT ---
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 As per family pt hasnt been feeling well for the past week (cough, weakness). Was seen by his PMD and was told he might have a viral infection. Symptoms progressively got worse and he visited his PMD once agan on 05/24. Was noted to be hypoxic and was sent to ER for further evaluation. On arrival to ED was placed on 4L via NC with improvement in his SpO2. Admission labs notable for WBC 3.5, Hgb 8.6, BUN/Cr 53/1.5, AST/ALT 256/ 275, troponin <0.03, BNP 5117, lactate 1.6. CXR notable for impressive L sided infiltrate. Pt was started on vanco/zosyn and given fluids. His creatinine improved with fluids, however his respiratory status got worse and he was given a dose of lasix (5PM on 06/25). US abdomen done given transaminitis and showed no hepatomegaly, gallbladder sludge, but no acute cholecystitis. Pt was waiting for an inpatient bed when he was noted to be more hypotensive (SBP in 70s) and confused yesterday evening. Was given 1L of fluids and transferred to our MICU for further management. Physical exam on arrival to the ICU notable for crackles on the L side and tachypnea with RR in 30s on venti mask at 50%FiO2. Most recent labs notable for WBC of 1.5, Hgb 5.9 (repeat CBC sent and pending to confirm), Cr 1.2. R IJ TLC placed without complications. Current Medications Albuterol/Ipratropium (Duoneb -) 1 amp NEB QIDR [facility] Last Admin: 06/26/17 00:00 Dose: 1 amp Heparin Sodium (Porcine) (Heparin -) 5,000 unit SQ TID [facility] Last Admin: 06/25/17 21:36 Dose: 5,000 unit Sodium Chloride (Normal Saline -) 1,000 mls @ 100 mls/hr IV ASDIR [facility] Last Admin: 06/26/17 01:49 Dose: 100 mls/hr Norepinephrine Bitartrate 8, (000 mcg/ Dextrose) 500 mls @ 18.75 mls/hr IV TITR JIHAN; 5 MCG/MIN PRN Reason: Protocol - Alcohol/Substance Use Hx Alcohol Use: Yes - Smoking History Smoking history: Former smoker Have you smoked in the past 12 months: No Aproximately how many cigarettes per day: 0 If you are a former smoker, when did you quit?: 65 YEARS Home Medications - Allergies Allergies/Adverse Reactions: Allergies Allergy/AdvReac Type Severity Reaction Status Date / Time No Known Allergies Allergy Verified 06/24/17 17:30 - Home Medications Home Medications: Ambulatory Orders Propranolol HCl [Inderal] 160 mg PO DAILY 12/31/12 Terazosin HCl [Hytrin] 5 mg PO HS 12/31/12 Physical Exam Vital Signs: Vital Signs Temperature 100.1 F H 06/25/17 23:00 Pulse Rate 73 06/26/17 04:45 Respiratory Rate 18 06/26/17 01:30 Blood Pressure 86/49 06/26/17 04:45 O2 Sat by Pulse Oximetry (%) 87 L 06/25/17 22:00 Cardiovascular: Yes: Regular Rate and Rhythm Respiratory: Yes: Cough, On Venti-Mask, Other (crackles on the L side) Gastrointestinal: Yes: Normal Bowel Sounds, Soft. No: Tenderness Extremities: Yes: WNL Edema: No Neurological: Yes: Alert, Oriented Labs: CBC, BMP 06/26/17 03:50 06/26/17 01:50 Troponin, BNP 06/25/17 18:00 B-Natriuretic Peptide 5117.74 H Imaging - Results Chest X-ray: Report Reviewed, Image Reviewed X-ray: Report Reviewed, Image Reviewed Ultrasound: Report Reviewed Problem List - Problems (1) Septic shock Code(s): A41.9 - SEPSIS, UNSPECIFIED ORGANISM; R65.21 - SEVERE SEPSIS WITH SEPTIC SHOCK (2) Transaminitis Code(s): R74.0 - NONSPEC ELEV OF LEVELS OF TRANSAMNS & LACTIC ACID DEHYDRGNSE Assessment/Plan Shock, likely septic given CXR findings vs cardiogenic. Sepsis likely 2/2 PNA Hypoxemic respiratory failure in the setting of PNA likely exacerbated by fluid overload DEWAYNE, likely prerenal given improvement with fluids Transaminitis of unclear etiology, improving Elevated BNP Anemia of unclear etiology, no overt signs of bleeding Leukopenia likely in the setting of sepsis -TLC placed -start levophed -add vasopressin and steroids if worsening shock -no fluids other than PRBC transfusion -TTE to r/o cardiogenic component -hold all anti HTNs -restart Vanco/Zosyn (changed to Ceftriaxone/Azithro prior to arrival here) -cont azithro for atypicals -f/u cultures (strep pneumo andl legionella neg) -send viral swab -CT chest once more stable -supplemental O2 as needed -transfuse 1 unit PRBC -anemia w/u -send hemolysis labs (no overt signs of bleeding, Hgb drop) -helton catheter placement -strict I &O -trend hepatic pannel -f/u hepatitis pannel -NPO given tenuous respiratory status -venodynes for VTE ppx -PPI for GI ppx ANA Nava Critical Care time: 60 minutes
--- NOTE | 2017-06-26 05:27 | PROC ---
Procedure Note Procedure: Central line insertion Central Line Insertion Indication: Vasopressor Risks and Benefits Explained: Yes Consent on Chart: Yes Central Line: Triple Lumen Catheter Anesthesia: 1% Lidocaine Sterile Technique: Yes Ultrasound Guided Assistance: Yes Position: Right Internal Jugular Post Insertion: Yes: Bilateral Breath Sounds Sterile Dressing Applied: Yes
[2017-06-26] MEDS: ALBUTEROL SO4 2.5/IPRATROPIUM 0.5 INH SOL 3 ML VIAL.NEB. NEB SCH ×5 (06:40→23:08)
[2017-06-26] MEDS: HEPARIN NA (PORCINE) 5,000 UNITS/ML 1ML VIAL SQ SCH (06:41)
--- NOTE | 2017-06-26 08:54 | PN ---
Progress Note (short form) - Note Progress Note: Subjective: The patient was seen and examined at the bedside he states he is feeling better today. He reports productive cough with yellowish sputum Central line placed overnight, started on norepi Current Medications Generic Name Dose Route Start Last Admin Trade Name Chandler PRN Reason Stop Dose Admin Albuterol/Ipratropium 1 amp 06/25/17 12:00 06/26/17 06:40 Duoneb - NEB 1 amp QIDR JIHAN Administration Heparin Sodium (Porcine) 5,000 unit 06/25/17 06:00 06/26/17 06:41 Heparin - SQ 5,000 unit TID JIHAN Administration Sodium Chloride 1,000 mls @ 100 mls/hr 06/26/17 01:45 06/26/17 01:49 Normal Saline - IV 100 mls/hr ASDIR JIHAN Administration Norepinephrine Bitartrate 8, 500 mls @ 18.75 mls/hr 06/26/17 05:00 06/26/17 05:00 000 mcg/ Dextrose IV 15 mcg/min TITR JIHAN 56.25 mls/hr Protocol Administration 5 MCG/MIN Azithromycin 500 mg/ Dextrose 250 mls @ 250 mls/hr 06/26/17 10:00 IVPB DAILY JIHAN CEFTRIAXONE 1 G/50 ML PREMIX 50 mls @ 100 mls/hr 06/26/17 10:00 Ceftriaxone 1 Gm-D5w Bag IVPB DAILY JIHAN Objective: Vital Signs Period Temp Pulse Resp BP Sys/Puentes Pulse Ox Last 24 Hr 97.8 F-100.6 F 65-92 18-28 73-108/37-55 84-94 Physical Exam: General: NAD, A&Ox3 Lungs: Left crackles Heart: RRR, S1S2 Abd: Soft, non-tender, non-distended. Normoactive bowel sounds Ext: Warm, well-perfused. 2+ DP/PT bilaterally Neuro: CN 2-12 intact CBCD WBC 1.5 K/mm3 (4.0-10.0) L* 06/26/17 03:50 RBC 1.92 M/mm3 (4.00-5.60) L 06/26/17 03:50 Hgb 5.7 GM/dL (11.7-16.9) L* 06/26/17 03:50 Hct 17.6 % (35.4-49) L 06/26/17 03:50 MCV 91.3 fl (80-96) 06/26/17 03:50 MCHC 32.4 g/dl (32.0-35.9) 06/26/17 03:50 RDW 17.7 % (11.9-15.9) H 06/26/17 03:50 Plt Count 141 K/MM3 (134-434) 06/26/17 03:50 MPV 9.0 fl (7.5-11.1) 06/26/17 03:50 CMP Sodium 139 mmol/L (136-145) 06/26/17 01:50 Potassium 4.2 mmol/L (3.5-5.1) 06/26/17 01:50 Chloride 103 mmol/L (98-107) 06/26/17 01:50 Carbon Dioxide 22 mmol/L (21-32) 06/26/17 01:50 Anion Gap 14 (8-16) 06/26/17 01:50 BUN 38 mg/dL (7-18) H 06/26/17 01:50 Creatinine 1.2 mg/dL (0.7-1.3) 06/26/17 01:50 Creat Clearance w eGFR 44.69 (>60) 06/24/17 17:38 Random Glucose 152 mg/dL (74-106) H 06/26/17 01:50 Calcium 6.7 mg/dL (8.5-10.1) L* 06/26/17 01:50 Total Bilirubin 4.3 mg/dl (0.2-1.0) H 06/25/17 07:30 AST 131 U/L (10-42) H D 06/25/17 07:30 ALT 182 U/L (10-40) H D 06/25/17 07:30 Alkaline Phosphatase 74 U/L (32-92) D 06/25/17 07:30 Total Protein 4.5 g/dl (6.4-8.3) L 06/25/17 07:30 Albumin 1.6 g/dl (3.5-5.0) L 06/25/17 07:30 CARDIAC ENZYMES Creatine Kinase 27 IU/L (39-308) L 06/24/17 17:38 Troponin I < 0.03 ng/ml (0.03-0.50) L 06/24/17 17:38 Microbiology 06/26/17 04:50 Nasopharyngeal Swab Influenza Types A,B Antigen (SHARON) - Final 06/26/17 04:50 Nasopharyngeal Swab - Final 06/24/17 18:47 Blood - Peripheral Venous Blood Culture - Preliminary NO GROWTH OBTAINED AFTER 24 HOURS, INCUBATION TO CONTINUE FOR 4 DAYS. 06/24/17 18:47 Blood - Peripheral Venous Blood Culture - Preliminary NO GROWTH OBTAINED AFTER 24 HOURS, INCUBATION TO CONTINUE FOR 4 DAYS. 06/24/17 23:20 Urine - Urine Clean Catch Legionella Antigen - Final 06/24/17 23:20 Urine - Urine Clean Catch Streptococcus pneumoniae Antigen ( M - Final Assessment: This is an 82 year old male with PMHx of anemia, hairy cell leukemia , colon polyp, HTN who presented to the ED with general malaise, lethargy, cough. He became hypotensive and lethargic yesterday and was transferred to the ICU and started on pressors Plan: 1) ID: Septic shock 2/2 community acquired pneumonia - Restart Vanco, Zosyn, Azithromycin (was on Ceftriaxone and Azithro prior to coming to the ICU) - Continue Norepi, keep MAP >65 - Hold all anti HTNs - Influenza A&B negative - Negative urine legionella Ag - Leukopenia - Tmax 100.6 yesterday - F/u ID consult - Appreciate critical care consul 2) GI: Transaminitis - F/u levels today - Elevated possibly 2/2 congestion/septic shock - Liver ultrasound with hepatomegaly. Gallbladder sludge and stones without sonographic evidence of acute cholecystitis. Non-visualized pancreas - Hepatitis A,B panel negative - Appreciate GI consult 3) Heme: Acute severe anemia - Received 1u PRBC, will recheck cbc - Transfuse if Hgb <7 - Will need CTAP and CT chest when stable to assess for cause of bleeding and pneumonia - F/u stool for occult blood - Appreciate oncology consult 3) Hairy cell leukemia - ANC 1398 - Management per oncology 4) F/E/N: - Regular diet - Monitor electrolytes 5) Prophylaxis: - Hold all chemical DVT prophylaxis as until bleed ruled out 6) Dispo: - Requires continued ICU care as the patient remains on pressors for BP support CODE STATUS: FULL CODE Visit type - Emergency Visit Emergency Visit: Yes ED Registration Date: 06/24/17 Care time: The patient presented to the Emergency Department on the above date and was hospitalized for further evaluation of their emergent condition. - New Patient This patient is new to me today: Yes Date on this admission: 06/26/17 - Critical Care Critical Care patient: Yes Total Critical Care Time (in minutes): 45 Critical Care Statement: The care of this patient involved high complexity decision making to prevent further life threatening deterioration of the patient 's condition and/or to evaluate & treat vital organ system(s) failure or risk of failure.
[2017-06-26 09:17] LABS: ALBUMIN 1.4 g/dl (3.4-5.0)
--- NOTE | 2017-06-26 09:37 | PN ---
Progress Note (short form) - Note Progress Note: ID consult dictated Extensive L sided pneumonia Sepsis secondary to pneumonia Hx HCL/MDS/ chronic pancytopenia ANC 1.3 Elevated LFTs Profound anemia Await sepsis workup Empiric zosyn/ zithromax + stat dose vancomycin Critical care time 35min
[2017-06-26] MEDS ORDERED: CEFTRIAXONE 1 G/50 ML PREMIX 50 ML IVPB SCH (10:00)
[2017-06-26] MEDS: AZITHROMYCIN IVPB 500 MG in DEXTROSE 5%-WATER - 250 ML IVPB SCH (10:13)
[2017-06-26] MEDS: PIPERACILLIN/TAZOB 3.375 GM 50 ML IVPB SCH ×3 (10:24→22:21)
[2017-06-26 10:31] LABS: MCH 29.8 pg (25.7-33.7); MCHC 32.8 g/dl (32.0-35.9); MEAN CELL VOLUME 90.8 fl (80-96); MEAN PLT VOLUME 8.5 fl (7.5-11.1); PLATELET COUNT 195 K/MM3 (134-434); RDW 17.2 % (11.9-15.9); WHITE BLOOD COUNT 5.1 K/mm3 (4.0-10.0)
[2017-06-26 10:40] LABS: BASOPHIL 0.5 % (0-2.0); EOSINOPHIL 0.2 % (0-4.5); NEUTROPHILS 96.4 % (42.8-82.8)
[2017-06-26 10:56] LABS: ALBUMIN 1.4 g/dl (3.4-5.0); BILIRUBIN,DIRECT 3.5 mg/dL (0.0-0.2); TOT PROT 3.9 g/dl (6.4-8.2)
[2017-06-26 10:58] LABS: ALBUMIN 1.4 g/dl (3.4-5.0); ALK PHOS 86 U/L (45-117); ANION GAP 8 (8-16); BILIRUBIN,DIRECT 4.4 mg/dL (0.0-0.2); BILIRUBIN,TOTAL 5.3 mg/dL (0.2-1.0); CALCIUM 7.1 mg/dL (8.5-10.1); CO2 26 mmol/L (21-32); CREATININE 1.2 mg/dL (0.7-1.3); GLUCOSE,RANDOM 208 mg/dL (74-106); MAGNESIUM 2.4 mg/dL (1.8-2.4); PHOSPHOROUS 2.8 mg/dL (2.5-4.9); SGOT/AST 59 U/L (15-37); SGPT/ALT 127 U/L (12-78); TOT PROT 4.3 g/dl (6.4-8.2)
--- NOTE | 2017-06-26 11:25 | PN ---
Progress Note (short form) - Note Progress Note: transfered from [address] ICU awake alert and cogent
--- NOTE | 2017-06-26 11:56 | PN ---
Progress Note (short form) - Note Progress Note: transfered from [address] ICU awake alert and cogent bp94/55 p68 r18 chest ronchi coarse bs left side heart rsr abd soft no spleen palp CBC, BMP 06/26/17 09:41 06/26/17 09:41 Hepatic Panel Total Bilirubin 4.0 mg/dL (0.2-1.0) H D 06/26/17 09:41 Direct Bilirubin 3.5 mg/dL (0.0-0.2) H D 06/26/17 09:41 AST 88 U/L (15-37) H D 06/26/17 09:41 ALT 143 U/L (12-78) H 06/26/17 09:41 Alkaline Phosphatase 80 U/L (45-117) 06/26/17 09:41 Albumin 1.4 g/dl (3.4-5.0) L 06/26/17 09:41 Current Medications Albuterol/Ipratropium (Duoneb -) 1 amp NEB QIDR JIHAN Last Admin: 06/26/17 11:05 Dose: 1 amp Heparin Sodium (Porcine) (Heparin -) 5,000 unit SQ TID JIHAN Last Admin: 06/26/17 06:41 Dose: 5,000 unit Sodium Chloride (Normal Saline -) 1,000 mls @ 100 mls/hr IV ASDIR JIHAN Last Admin: 06/26/17 01:49 Dose: 100 mls/hr Norepinephrine Bitartrate 8, (000 mcg/ Dextrose) 500 mls @ 18.75 mls/hr IV TITR JIHAN; 5 MCG/MIN PRN Reason: Protocol Last Admin: 06/26/17 05:00 Dose: 15 mcg/min, 56.25 mls/hr Azithromycin 500 mg/ Dextrose 250 mls @ 250 mls/hr IVPB DAILY JIHAN Last Admin: 06/26/17 10:13 Dose: 250 mls/hr Piperacillin/Tazobactam/Dextrose (Zosyn 3.375gm Ivpb (Premix)) 50 mls @ 100 mls /hr IVPB Q8H-IV JIHAN PRN Reason: Protocol Vital Signs Temperature 98.0 F 06/26/17 06:00 Pulse Rate 76 06/26/17 11:31 Respiratory Rate 22 06/26/17 06:00 Blood Pressure 94/55 06/26/17 06:00 O2 Sat by Pulse Oximetry (%) 93 L 06/26/17 11:31 1 pneumonia in an immunosupressed pt adequate 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
--- NOTE | 2017-06-26 12:08 | CON.GI ---
Consult Consult Specialty:: GI Referred by:: service Reason for Consultation:: elevated liver enzymes - History of Present Illness History of Present Illness: Chart reviewed. Events noted. An 82 yom with community acquired pneumonia, sepsis requiring ICU care. GI was asked to elevated for elevated liver enzymes, ALP and bilirubin. Cholestasis with hepatitis pattern. The enzymes have been trending down over the last 2 days. There is no history of excessive alcohol, chronic NSAIDs, new medications , herbal, or over the counter remedies. Denies history of jaundice, viral hepatitis, personal, or family history of chronic liver issues. Denies being told his liver tests were abnormal at regular checkups with his PCP and oncologist. The patient is awake and alert. Doesn't appear toxic, in pain, or in distress. and daughter at bedside. - History Source History Provided By: Patient, Medical Record Limitations to Obtaining History: No Limitations - Past Medical History Cardio/Vascular: Yes: HTN Heme/Onc: Yes: Other (hairy cell leukemia in remission seing oncologist monthly) - Alcohol/Substance Use Hx Alcohol Use: Yes - Smoking History Smoking history: Former smoker Have you smoked in the past 12 months: No Aproximately how many cigarettes per day: 0 If you are a former smoker, when did you quit?: 64 YEARS Home Medications - Allergies Allergies/Adverse Reactions: Allergies Allergy/AdvReac Type Severity Reaction Status Date / Time No Known Allergies Allergy Verified 06/24/17 17:30 - Home Medications Home Medications: Ambulatory Orders Propranolol HCl [Inderal] 160 mg PO DAILY 12/31/12 Terazosin HCl [Hytrin] 5 mg PO HS 12/31/12 Family Disease History - Family Disease History Family History: Unremarkable Review of Systems Findings/Remarks: please refer to HPI, H&P Physical Exam-GI Vital Signs: Vital Signs Temperature 98.0 F 06/26/17 06:00 Pulse Rate 76 06/26/17 11:31 Respiratory Rate 22 06/26/17 06:00 Blood Pressure 94/55 06/26/17 06:00 O2 Sat by Pulse Oximetry (%) 93 L 06/26/17 11:31 Constitutional: Yes: Well Nourished, No Distress, Calm Eyes: Yes: Sclera Icterus HENT: Yes: Atraumatic Neck: Yes: Supple Cardiovascular: Yes: Regular Rate and Rhythm Respiratory: Yes: Regular ...Auscultate: Yes: Normoactive Bowel Sounds ...Palpate: Yes: Soft, Other (negative loya's). No: Firm/Rigid, Guarding, Mass, Pulsatile Mass, Tenderness Edema: No Neurological: Yes: Alert, Oriented Labs: CBC, BMP 06/26/17 09:41 06/26/17 09:41 INR, PTT INR 1.43 (0.82-1.09) H 06/24/17 17:38 CBCD WBC 5.1 K/mm3 (4.0-10.0) D 06/26/17 09:41 RBC 2.62 M/mm3 (4.00-5.60) L D 06/26/17 09:41 Hgb 7.8 GM/dL (11.7-16.9) L D 06/26/17 09:41 Hct 23.8 % (35.4-49) L D 06/26/17 09:41 MCV 90.8 fl (80-96) 06/26/17 09:41 MCHC 32.8 g/dl (32.0-35.9) 06/26/17 09:41 RDW 17.2 % (11.9-15.9) H 06/26/17 09:41 Plt Count 195 K/MM3 (134-434) D 06/26/17 09:41 MPV 8.5 fl (7.5-11.1) 06/26/17 09:41 CMP Sodium 137 mmol/L (136-145) 06/26/17 09:41 Potassium 3.8 mmol/L (3.5-5.1) 06/26/17 09:41 Chloride 103 mmol/L (98-107) 06/26/17 09:41 Carbon Dioxide 26 mmol/L (21-32) 06/26/17 09:41 Anion Gap 8 (8-16) 06/26/17 09:41 BUN 37 mg/dL (7-18) H 06/26/17 09:41 Creatinine 1.2 mg/dL (0.7-1.3) 06/26/17 09:41 Creat Clearance w eGFR 57.82 (>60) 06/26/17 09:41 Calcium 7.1 mg/dL (8.5-10.1) L 06/26/17 09:41 Total Bilirubin 4.0 mg/dL (0.2-1.0) H D 06/26/17 09:41 AST 88 U/L (15-37) H D 06/26/17 09:41 ALT 143 U/L (12-78) H 06/26/17 09:41 Alkaline Phosphatase 80 U/L (45-117) 06/26/17 09:41 Total Protein 3.9 g/dl (6.4-8.2) L 06/26/17 09:41 Albumin 1.4 g/dl (3.4-5.0) L 06/26/17 09:41 Imaging - Results Ultrasound: Report Reviewed (biliary sludge, GS) Problem List - Problems (1) Transaminitis Code(s): R74.0 - NONSPEC ELEV OF LEVELS OF TRANSAMNS & LACTIC ACID DEHYDRGNSE (2) Hepatitis Code(s): K75.9 - INFLAMMATORY LIVER DISEASE, UNSPECIFIED (3) 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 DUCT (4) Pneumonia Code(s): J18.9 - PNEUMONIA, UNSPECIFIED ORGANISM Qualifiers: Pneumonia type: due to unspecified organism Laterality: left Lung location: unspecified part of lung Qualified Code(s): J18.9 - Pneumonia, unspecified organism (5) Anemia Code(s): D64.9 - ANEMIA, UNSPECIFIED (6) Septic shock Code(s): A41.9 - SEPSIS, UNSPECIFIED ORGANISM; R65.21 - SEVERE SEPSIS WITH SEPTIC SHOCK Assessment/Plan A cholestasis/jaundice with mild hepatitis. Asymptomatic biliary sludge and colelithiasis with normal CBD and no signs of cholicystitis on US. The numbers are trending down. Lipase, GGT and LAP are normal. Acute A, B hepatitis panel - negative. Suspect intrahepatic cholestasis of sepsis as the likely etiology, however if no improvement in bililubin level in the next 1-2 days, will obtain MRCP. Doubt new onset autoimmune hepatitis, PBC, PSC. Continue daily hepatic panel and direct bili Continue Abx (Zosyn), as per ID/ICU Close monitoring for abdominal symptoms Low fat diet HCV status Discussed with the patient, his and daughter.
--- NOTE | 2017-06-26 13:05 | CONS ---
DATE OF CONSULTATION: HISTORY: The patient is an 82-year-old male who was evaluated for sepsis/septic shock. The patient was admitted to [facility] on June 24, 2017 with complaints of generalized weakness. He had been suffering from upper respiratory tract symptoms for approximately 1 week. He reports cough productive of whitish sputum. He had presented to his PMD after developing hematuria. He was found to be hypoxemic and was referred to the emergency room. Chest x-ray on admission showed an extensive left-sided infiltrate. In addition, he was noted to have elevated liver enzymes. The patient has a history of hairy cell leukemia for which he is followed by his oncologist on a monthly basis. He has a history of chronic pancytopenia. He apparently has not received treatment for the past 2 years. He denies any ill contacts. Lives at home with his who has no respiratory tract illness. He denies any recent hospitalizations. No recent travel. No significant pet exposure. The patient states he is up to date with respect to influenza and pneumococcal vaccines. He is a former smoker. PAST MEDICAL HISTORY: Positive for hairy cell leukemia, myelodysplastic syndrome, chronic pancytopenia, hypertension. ALLERGIES: No known allergies. MEDICATIONS: Include Hytrin and Inderal. SOCIAL HISTORY: He lives at home with his . He is a retired salesman. He is a former smoker. Occasional ETOH. SYSTEMS REVIEW: Neurologic: No loss of consciousness, seizure activity, focal weakness. Cardiac: Negative chest pain or palpitations. Respiratory: As per HPI. Gastrointestinal: Negative vomiting or diarrhea. Genitourinary: Positive for hematuria. No dysuria or hematuria. LABORATORY DATA: White count 1.5, absolute neutrophil count 1.3, hematocrit 17.6, platelets 141, BUN 38, creatinine 1.2. Blood cultures pending. Influenza swab negative. Urinalysis 2-3 white cells. IMAGING: Chest x-ray shows extensive left-sided infiltrate. PHYSICAL EXAMINATION: General: He is awake. He is slightly short of breath at rest in no acute respiratory distress. Vital Signs: He is hypotensive on pressors in the ICU. Temperature 98, T-max 100.6, blood pressure 94/55, pulse 68 and regular, respirations 22 per minute. HEENT: Sclerae anicteric. Heart: Sounds S1, S2. Lungs: Rales throughout left lung field. Crepitations right base. Abdomen: Obese, soft. No tenderness elicited. No mass, rebound, or rigidity. Extremities: Positive for edema. There are multiple dysplastic nevi present on his body. IMPRESSION: 1. Extensive left-sided community-acquired versus atypical pneumonia. 2. Sepsis/septic shock secondary to pulmonary infection. 3. History of hairy cell leukemia/myelodysplastic syndrome/chronic pancytopenia. 4. Elevated liver enzymes. 5. Profound anemia. PLAN: Continue respiratory support, hemodynamic support/pressors, empiric antibiotic coverage directed against community-acquired versus atypical pathogens in this immunocompromised patient with Zithromax and Zosyn plus STAT dose of vancomycin. Hematology evaluation. Transfuse blood products as needed. Monitor liver enzymes. GI evaluation. Continue ICU monitoring. Prognosis is guarded. Critical care time spent 35 minutes. Thank you for the kind referral. CEE BROWN M.D. [id number]
--- NOTE | 2017-06-26 13:14 | PN ---
Teaching Attending Note Name of Resident: Louise Bowen ATTENDING PHYSICIAN STATEMENT I saw and evaluated the patient. I reviewed the resident's note and discussed the case with the resident. I agree with the resident's findings and plan as documented. SUBJECTIVE: Patient seen and examined in the ICU. Awake and alert. Remains on 15 mcq NE for hemodynamic support. Intake & Output 06/23/17 06/24/17 06/25/17 06/26/17 23:59 23:59 23:59 23:59 Intake Total 2100 854 Output Total 650 1600 Balance 1450 -746 Weight 184 lb 11.2 oz 186 lb 11.704 oz Last Vital Signs Temp Pulse Resp BP Pulse Ox 98.0 F 76 22 103/53 93 L 06/26/17 06:00 06/26/17 11:31 06/26/17 13:02 06/26/17 13:02 06/26/17 11:31 Active Medications Albuterol/Ipratropium (Duoneb -) 1 amp NEB QIDR [facility] Last Admin: 06/26/17 11:05 Dose: 1 amp Heparin Sodium (Porcine) (Heparin -) 5,000 unit SQ TID [facility] Last Admin: 06/26/17 06:41 Dose: 5,000 unit Sodium Chloride (Normal Saline -) 1,000 mls @ 100 mls/hr IV ASDIR [facility] Last Admin: 06/26/17 01:49 Dose: 100 mls/hr Norepinephrine Bitartrate 8, (000 mcg/ Dextrose) 500 mls @ 18.75 mls/hr IV TITR JIHAN; 5 MCG/MIN PRN Reason: Protocol Last Admin: 06/26/17 05:00 Dose: 15 mcg/min, 56.25 mls/hr Azithromycin 500 mg/ Dextrose 250 mls @ 250 mls/hr IVPB DAILY [facility] Last Admin: 06/26/17 10:13 Dose: 250 mls/hr Piperacillin/Tazobactam/Dextrose (Zosyn 3.375gm Ivpb (Premix)) 50 mls @ 100 mls /hr IVPB Q8H-IV JIHAN PRN Reason: Protocol Cardiovascular: Yes: Regular Rate and Rhythm Respiratory: Yes: Cough, Coarse crackles on the left, On Venti-Mask Gastrointestinal: Yes: Normal Bowel Sounds, Soft. No: Tenderness Extremities: Yes: WNL Edema: No Neurological: Yes: Alert, Oriented Labs: Laboratory Results - last 24 hr 06/25/17 06/25/17 06/25/17 07:30 18:00 18:00 WBC 3.6 L D RBC 2.68 L Hgb 8.0 L D Hct 24.3 L MCV 90.7 MCH 29.7 MCHC 32.8 RDW 16.7 H Plt Count 208 MPV 8.2 Total Counted Neutrophils % Neutrophils % (Manual) Band Neutrophils % Lymphocytes % Lymphocytes % (Manual) Monocytes % Monocytes % (Manual) Eosinophils % Eosinophils % (Manual) Basophils % Basophils % (Manual) Myelocytes % (Man) Promyelocytes % (Man) Blast Cells % (Manual) Nucleated RBC % Metamyelocytes Hypersegmented Neuts Plasma Cells Smudge Cells Other Cell Type Hypochromia Toxic Granulation Dohle Bodies Yasir Rods Platelet Estimate Platelet Comment Polychromasia Poikilocytosis Basophilic Stippling Anisocytosis Microcytosis Macrocytosis Spherocytes Siderocytes Sickle Cells Target Cells Tear Drop Cells Ovalocytes Stomatocytes Helmet Cells [place] Bodies [place] Rings Sargent Cells Acanthocytes (Spur) Rouleaux Fragmented RBCs Schistocytes Anticoagulation Therapy Puncture Site ABG pH ABG pCO2 at Pt Temp ABG pO2 at Pt Temp ABG HCO3 ABG O2 Sat (Measured) ABG O2 Content ABG Base Excess Jose Luis Test O2 Delivery Device Oxygen Flow Rate Vent Mode Vent Rate Mechanical Rate Pressure Support Vent Sodium Potassium Chloride Carbon Dioxide Anion Gap BUN Creatinine Creat Clearance w eGFR Random Glucose Lactic Acid Calcium Phosphorus Magnesium Total Bilirubin Direct Bilirubin GGT AST ALT Alkaline Phosphatase B-Natriuretic Peptide 5117.74 H Total Protein Albumin Hepatitis A IgM Ab Negative Hep Bs Antigen Negative Hep B Core IgM Ab Negative Blood Type Crossmatch 06/26/17 06/26/17 06/26/17 00:09 01:50 01:50 WBC 1.5 L* RBC 2.03 L Hgb 5.9 L* Hct 18.3 L MCV 90.2 MCH 29.4 MCHC 32.6 RDW 18.0 H Plt Count 144 MPV 8.6 Total Counted Neutrophils % 93.2 H Neutrophils % (Manual) Band Neutrophils % Lymphocytes % 5.2 L Lymphocytes % (Manual) Monocytes % 1.2 L Monocytes % (Manual) Eosinophils % 0.3 Eosinophils % (Manual) Basophils % 0.1 Basophils % (Manual) Myelocytes % (Man) Promyelocytes % (Man) Blast Cells % (Manual) Nucleated RBC % Metamyelocytes Hypersegmented Neuts Plasma Cells Smudge Cells Other Cell Type Hypochromia Toxic Granulation Dohle Bodies Yasir Rods Platelet Estimate Platelet Comment Polychromasia Poikilocytosis Basophilic Stippling Anisocytosis Microcytosis Macrocytosis Spherocytes Siderocytes Sickle Cells Target Cells Tear Drop Cells Ovalocytes Stomatocytes Helmet Cells [place] Bodies [place] Rings Sargent Cells Acanthocytes (Spur) Rouleaux Fragmented RBCs Schistocytes Anticoagulation Therapy Y Puncture Site Right radial ABG pH 7.49 H ABG pCO2 at Pt Temp 32.1 L ABG pO2 at Pt Temp 71.5 ABG HCO3 24.5 ABG O2 Sat (Measured) 97.3 ABG O2 Content 7.5 L* ABG Base Excess 1.5 Jose Luis Test Positive O2 Delivery Device Y Oxygen Flow Rate 87 Vent Mode Y Vent Rate Y Mechanical Rate Y Pressure Support Vent Y Sodium 139 Potassium 4.2 Chloride 103 Carbon Dioxide 22 Anion Gap 14 BUN 38 H Creatinine 1.2 Creat Clearance w eGFR Random Glucose 152 H Lactic Acid Calcium 6.7 L* Phosphorus 2.9 Magnesium 2.2 Total Bilirubin Direct Bilirubin GGT AST ALT Alkaline Phosphatase B-Natriuretic Peptide Total Protein Albumin 1.4 L Hepatitis A IgM Ab Hep Bs Antigen Hep B Core IgM Ab Blood Type Crossmatch 06/26/17 06/26/17 06/26/17 01:50 03:50 03:50 WBC 1.5 L* RBC 1.92 L Hgb 5.7 L* Hct 17.6 L MCV 91.3 MCH 29.6 MCHC 32.4 RDW 17.7 H Plt Count 141 MPV 9.0 Total Counted Neutrophils % Neutrophils % (Manual) Band Neutrophils % Lymphocytes % Lymphocytes % (Manual) Monocytes % Monocytes % (Manual) Eosinophils % Eosinophils % (Manual) Basophils % Basophils % (Manual) Myelocytes % (Man) Promyelocytes % (Man) Blast Cells % (Manual) Nucleated RBC % Metamyelocytes Hypersegmented Neuts Plasma Cells Smudge Cells Other Cell Type Hypochromia Toxic Granulation Dohle Bodies Yasir Rods Platelet Estimate Platelet Comment Polychromasia Poikilocytosis Basophilic Stippling Anisocytosis Microcytosis Macrocytosis Spherocytes Siderocytes Sickle Cells Target Cells Tear Drop Cells Ovalocytes Stomatocytes Helmet Cells [place] Bodies [place] Rings [place]is Cells Acanthocytes (Spur) Rouleaux Fragmented RBCs Schistocytes Anticoagulation Therapy Puncture Site ABG pH ABG pCO2 at Pt Temp ABG pO2 at Pt Temp ABG HCO3 ABG O2 Sat (Measured) ABG O2 Content ABG Base Excess Jose Luis Test O2 Delivery Device Oxygen Flow Rate Vent Mode Vent Rate Mechanical Rate Pressure Support Vent Sodium Potassium Chloride Carbon Dioxide Anion Gap BUN Creatinine Creat Clearance w eGFR Random Glucose Lactic Acid 1.0 Calcium Phosphorus Magnesium Total Bilirubin Direct Bilirubin GGT AST ALT Alkaline Phosphatase B-Natriuretic Peptide Total Protein Albumin Hepatitis A IgM Ab Hep Bs Antigen Hep B Core IgM Ab Blood Type A POSITIVE Crossmatch See Detail 06/26/17 06/26/17 06/26/17 07:30 09:41 09:41 WBC 5.1 D RBC 2.62 L D Hgb 7.8 L D Hct 23.8 L D MCV 90.8 MCH 29.8 MCHC 32.8 RDW 17.2 H Plt Count 195 D MPV 8.5 Total Counted Neutrophils % 96.4 H Neutrophils % (Manual) Band Neutrophils % Lymphocytes % 2.0 L D Lymphocytes % (Manual) Monocytes % 0.9 L Monocytes % (Manual) Eosinophils % 0.2 Eosinophils % (Manual) Basophils % 0.5 D Basophils % (Manual) Myelocytes % (Man) Promyelocytes % (Man) Blast Cells % (Manual) Nucleated RBC % Metamyelocytes Hypersegmented Neuts Plasma Cells Smudge Cells Other Cell Type Hypochromia Toxic Granulation Dohle Bodies Yasir Rods Platelet Estimate Platelet Comment Polychromasia Poikilocytosis Basophilic Stippling Anisocytosis Microcytosis Macrocytosis Spherocytes Siderocytes Sickle Cells Target Cells Tear Drop Cells Ovalocytes Stomatocytes Helmet Cells [place] Bodies [place] Rings Aris Cells Acanthocytes (Spur) Rouleaux Fragmented RBCs Schistocytes Anticoagulation Therapy Puncture Site ABG pH ABG pCO2 at Pt Temp ABG pO2 at Pt Temp ABG HCO3 ABG O2 Sat (Measured) ABG O2 Content ABG Base Excess Jose Luis Test O2 Delivery Device Oxygen Flow Rate Vent Mode Vent Rate Mechanical Rate Pressure Support Vent Sodium 137 Potassium 3.8 Chloride 103 Carbon Dioxide 26 Anion Gap 8 BUN 37 H Creatinine 1.2 Creat Clearance w eGFR 57.82 Random Glucose 208 H D Lactic Acid Calcium 7.1 L Phosphorus 2.8 Magnesium 2.4 Total Bilirubin 5.3 H Direct Bilirubin 4.4 H GGT AST 59 H ALT 127 H Alkaline Phosphatase 86 B-Natriuretic Peptide Total Protein 4.3 L Albumin Cancelled 1.4 L Hepatitis A IgM Ab Hep Bs Antigen Hep B Core IgM Ab Blood Type Crossmatch 06/26/17 06/26/17 06/26/17 09:41 09:41 09:41 WBC RBC Hgb Hct MCV MCH MCHC RDW Plt Count MPV Total Counted Cancelled Neutrophils % Neutrophils % (Manual) Cancelled Band Neutrophils % Cancelled Lymphocytes % Lymphocytes % (Manual) Cancelled Monocytes % Monocytes % (Manual) Cancelled Eosinophils % Eosinophils % (Manual) Cancelled Basophils % Basophils % (Manual) Cancelled Myelocytes % (Man) Cancelled Promyelocytes % (Man) Cancelled Blast Cells % (Manual) Cancelled Nucleated RBC % Cancelled Metamyelocytes Cancelled Hypersegmented Neuts Cancelled Plasma Cells Cancelled Smudge Cells Cancelled Other Cell Type Cancelled Hypochromia Cancelled Toxic Granulation Cancelled Dohle Bodies Cancelled Yasir Rods Cancelled Platelet Estimate Cancelled Platelet Comment Cancelled Polychromasia Cancelled Poikilocytosis Cancelled Basophilic Stippling Cancelled Anisocytosis Cancelled Microcytosis Cancelled Macrocytosis Cancelled Spherocytes Cancelled Siderocytes Cancelled Sickle Cells Cancelled Target Cells Cancelled Tear Drop Cells Cancelled Ovalocytes Cancelled Stomatocytes Cancelled Helmet Cells Cancelled [place] Bodies Cancelled [place] Rings Cancelled Aris Cells Cancelled Acanthocytes (Spur) Cancelled Rouleaux Cancelled Fragmented RBCs Cancelled Schistocytes Cancelled Anticoagulation Therapy Puncture Site ABG pH ABG pCO2 at Pt Temp ABG pO2 at Pt Temp ABG HCO3 ABG O2 Sat (Measured) ABG O2 Content ABG Base Excess Jose Luis Test O2 Delivery Device Oxygen Flow Rate Vent Mode Vent Rate Mechanical Rate Pressure Support Vent Sodium Potassium Chloride Carbon Dioxide Anion Gap BUN Creatinine Creat Clearance w eGFR Random Glucose Lactic Acid Calcium Phosphorus Magnesium Total Bilirubin 4.0 H D Direct Bilirubin 3.5 H D GGT 37 AST 88 H D ALT 143 H Alkaline Phosphatase 80 B-Natriuretic Peptide Total Protein 3.9 L Albumin 1.4 L Hepatitis A IgM Ab Hep Bs Antigen Hep B Core IgM Ab Blood Type Crossmatch Problem List - Problems (1) Septic shock Code(s): A41.9 - SEPSIS, UNSPECIFIED ORGANISM; R65.21 - SEVERE SEPSIS WITH SEPTIC SHOCK (2) Transaminitis Code(s): R74.0 - NONSPEC ELEV OF LEVELS OF TRANSAMNS & LACTIC ACID DEHYDRGNSE Assessment/Plan Septic Shock likely due to PNA Hypoxemic respiratory failure in the setting of PNA DEWAYNE Transaminitis of unclear etiology, improving Elevated BNP Anemia of unclear etiology, no overt signs of bleeding Leukopenia likely in the setting of sepsis Wean pressors to maintain MAP Normal transfusion thresholds TTE to r/o cardiogenic component Hold all anti HTNs ABX coverage Follow cultures Supplemental O2 as needed Strict I &O PO as tolerated ICU monitoring Dr Barnes Critical care time spent in reviewing chart, evaluating patient and formulating plan - 36 minutes.
--- NOTE | 2017-06-26 16:03 | PN ---
Physical Exam: SUBJECTIVE: Patient seen and examined at bedside. 24 hr events -Hb<7, received 1 unit of PRBCs (still being transfused this AM) -afebrile -denies headache, fever, chills, SOB, or chest pain OBJECTIVE: R-IJ line: was placed on admission Has IV line I's and o's: 1.2 L in, 2L out On Levophed Has helton Vital Signs Period Temp Pulse Resp BP Sys/Puentes Pulse Ox Last 24 Hr 97.8 F-100.1 F 65-89 18-28 73-108/37-55 87-94 GENERAL: The patient is awake, alert and oriented to person and place (not to time) HEAD: Normal with no signs of trauma. EYES: PERRL, extraocular movements intact, sclera anicteric, conjunctiva clear. NECK: Trachea midline, supple. LUNGS: crackles appreciated LLL HEART: Regular rate and rhythm, S1, S2 without murmur, rub or gallop. ABDOMEN: Soft, nontender, nondistended, normoactive bowel sounds, no guarding, no rebound EXTREMITIES: 2+ posterior tibial pulses, no edema. NEUROLOGICAL: Cranial nerves II through XII grossly intact. Hesitant speech Laboratory Tests 06/25/17 06/25/17 06/26/17 07:30 18:00 00:09 WBC 2.5 L 3.6 L D RBC Hgb 7.2 L D 8.0 L D Hct RDW 17.3 H 16.7 H Puncture Site Right radial ABG pH 7.49 H ABG pCO2 at Pt Temp 32.1 L ABG O2 Content 7.5 L* Total Bilirubin Direct Bilirubin 06/26/17 06/26/17 06/26/17 01:50 09:41 09:41 WBC RBC 2.62 L D Hgb 5.9 L* 7.8 L D Hct 23.8 L D RDW 18.0 H 17.2 H Puncture Site ABG pH ABG pCO2 at Pt Temp ABG O2 Content Total Bilirubin 5.3 H Direct Bilirubin 4.4 H Active Medications Generic Name Dose Route Start Last Admin Trade Name Freq PRN Reason Stop Dose Admin Albuterol/Ipratropium 1 amp 06/25/17 12:00 06/26/17 11:05 Duoneb - NEB 1 amp QIDR JIHAN Administration Heparin Sodium (Porcine) 5,000 unit 06/25/17 06:00 06/26/17 06:41 Heparin - SQ 5,000 unit TID JIHAN Administration Sodium Chloride 1,000 mls @ 100 mls/hr 06/26/17 01:45 06/26/17 01:49 Normal Saline - IV 100 mls/hr ASDIR JIHAN Administration Norepinephrine Bitartrate 8, 500 mls @ 18.75 mls/hr 06/26/17 05:00 06/26/17 12:00 000 mcg/ Dextrose IV 12 mcg/min TITR JIHAN 45 mls/hr Protocol Titration 5 MCG/MIN Azithromycin 500 mg/ Dextrose 250 mls @ 250 mls/hr 06/26/17 10:00 06/26/17 10 :13 IVPB 250 mls/hr DAILY JIHAN Administration Piperacillin/Tazobactam/Dextrose 50 mls @ 100 mls/hr 06/26/17 10:00 Zosyn 3.375gm Ivpb (Premix) IVPB Q8H-IV JIHAN Protocol ASSESSMENT/PLAN: 82 y/o M with 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 Pt was told it was viral etiology, worsened and returned to the ED. He was found to have a L sided infiltrate and was started on vanc and zosyn. Pt's resp status declined, so he was admitted to ICU for further monitoring. Pt currently being managed in ICU for sepsis 2/2 pneumonia. #sepsis 2/2 pneumonia -pt currently afebrile, with WBCs 1.5- may be reactive from sepsis -pt started on levophed -avoid PT, until off pressors -continue zosyn and azithromycin (Today is Day1) -Duonebs 1 amp neb QIDR -urine and blood cx negative -CT chest when pt more stable #CHF -elevated BNP -strict I's and O's -daily weights #Transaminitis of unknown origin -Trend hepatitis panel -However trending down: today 131,182 (AST,ALT) #Anemia -most likely not non dilutional as no change in platelets -no signs of active bleeding, no melena or hemetemesis -Hb<7 today, received 1 unit PRBCs #DEWAYNE - prerenal -may be 2/2 sepsis, decreased perfusion -today: 37/1.2 -will continue to monitor UO -pt on gentle hydration NS 100 mls/hr - will continue to follow DVT prophylaxis Heparin 5000 SQ TID F/E/N IV NS 500 mls/hr monitor electrolytes NPO since pt is having difficulty breathing Disposition Continued monitoring in ICU , as still dependent on pressor support Visit type - Emergency Visit Emergency Visit: No - New Patient This patient is new to me today: Yes Date on this admission: 06/26/17 - Critical Care Critical Care patient: Yes Total Critical Care Time (in minutes): 42 Critical Care Statement: The care of this patient involved high complexity decision making to prevent further life threatening deterioration of the patient 's condition and/or to evaluate & treat vital organ system(s) failure or risk of failure.
[2017-06-27] MEDS ORDERED: PT OWN MED DRAWER 7, Y5N ONE ×3 (00:10→21:03)
[2017-06-27] MEDS: PIPERACILLIN/TAZOB 3.375 GM 50 ML IVPB SCH ×4 (01:25→17:28)
[2017-06-27 06:30] LABS: BASOPHIL 0.1 % (0-2.0); EOSINOPHIL 0.4 % (0-4.5); MCH 29.6 pg (25.7-33.7); MCHC 32.9 g/dl (32.0-35.9); MEAN CELL VOLUME 90.1 fl (80-96); MEAN PLT VOLUME 8.3 fl (7.5-11.1); NEUTROPHILS 95.1 % (42.8-82.8); PLATELET COUNT 187 K/MM3 (134-434); RDW 17.6 % (11.9-15.9); WHITE BLOOD COUNT 3.7 K/mm3 (4.0-10.0)
[2017-06-27] MEDS: ALBUTEROL SO4 2.5/IPRATROPIUM 0.5 INH SOL 3 ML VIAL.NEB. NEB SCH ×4 (06:56→23:57)
[2017-06-27 07:08] LABS: ALBUMIN 1.3 g/dl (3.4-5.0); ANION GAP 12 (8-16); BILIRUBIN,DIRECT 3.6 mg/dL (0.0-0.2); BILIRUBIN,TOTAL 4.1 mg/dL (0.2-1.0); CO2 23 mmol/L (21-32); CREATININE 0.9 mg/dL (0.7-1.3); GLUCOSE,RANDOM 136 mg/dL (74-106); SGOT/AST 37 U/L (15-37); SGPT/ALT 91 U/L (12-78); TOT PROT 4.2 g/dl (6.4-8.2)
[2017-06-27 07:09] LABS: ALK PHOS 80 U/L (45-117)
[2017-06-27 07:19] LABS: CALCIUM 6.9 mg/dL (8.5-10.1)
[2017-06-27 07:52] LABS: ARTERIAL BLD GAS O2 SATURATION 93.4 % (90-98.9); ARTERIAL BLOOD GAS BASE EXCESS 1.4 meq/l (-2-2); ARTERIAL BLOOD GAS HCO3 25.6 meq/L (22-26); ARTERIAL BLOOD GAS PO2 66.1 mmHg (68-100); ARTERIAL BLOOD GAS pH 7.41 (7.35-7.45)
[2017-06-27 07:54] LABS: ALLENS TEST POSITIVE; ART PUNCT SITE RIGHT BRACHIAL; LPM/O2% 5L; PT. ON O2? YES; TYPE OF O2 N/C
[2017-06-27] MEDS: SODIUM CHLORIDE 1,000 ML IV SCH ×2 (08:39→21:05)
[2017-06-27] MEDS: AZITHROMYCIN IVPB 500 MG in DEXTROSE 5%-WATER - 250 ML IVPB SCH (09:09)
--- NOTE | 2017-06-27 09:43 | PN ---
Progress Note, Physician History of Present Illness: Awake, alert States he feels "great" No c/o chest pain/ dyspnea/ cough No c/o fever/ chills Afebrile Hypotensive on pressors WBC improved 3.7 95%N - Current Medication List Current Medications: Active Medications Albuterol/Ipratropium (Duoneb -) 1 amp NEB QIDR [facility] Last Admin: 06/27/17 06:56 Dose: 1 amp Heparin Sodium (Porcine) (Heparin -) 5,000 unit SQ TID [facility] Last Admin: 06/26/17 06:41 Dose: 5,000 unit Sodium Chloride (Normal Saline -) 1,000 mls @ 100 mls/hr IV ASDIR JIHAN Last Admin: 06/27/17 08:39 Dose: 100 mls/hr Norepinephrine Bitartrate 8, (000 mcg/ Dextrose) 500 mls @ 18.75 mls/hr IV TITR JIHAN; 5 MCG/MIN PRN Reason: Protocol Last Titration: 06/27/17 07:00 Dose: 4 mcg/min, 15 mls/hr Azithromycin 500 mg/ Dextrose 250 mls @ 250 mls/hr IVPB DAILY JIHAN Last Admin: 06/27/17 09:09 Dose: 250 mls/hr Piperacillin/Tazobactam/Dextrose (Zosyn 3.375gm Ivpb (Premix)) 50 mls @ 100 mls /hr IVPB Q8H-IV JIHAN PRN Reason: Protocol Last Admin: 06/27/17 01:25 Dose: 100 mls/hr - Objective Vital Signs: Vital Signs Temperature 98.1 F 06/27/17 08:00 Pulse Rate 84 06/27/17 08:00 Respiratory Rate 24 06/27/17 08:00 Blood Pressure 102/55 06/27/17 08:00 O2 Sat by Pulse Oximetry (%) 94 L 06/27/17 08:52 Constitutional: Yes: No Distress Eyes: Yes: Conjunctiva Clear Cardiovascular: Yes: Regular Rate and Rhythm, S1, S2 Respiratory: Yes: Other (+ crepitations L lung field) Gastrointestinal: Yes: Normal Bowel Sounds, Soft, Abdomen, Obese. No: Tenderness Edema: Yes Labs: CBC, BMP 06/27/17 05:45 06/27/17 05:45 INR, PTT INR 1.43 (0.82-1.09) H 06/24/17 17:38 Assessment/Plan Extensive L sided pneumonia Sepsis secondary to pneumonia HCL/MDS/ chronic pancytopenia Elevated LFTs Await c/s Continue hemodynamic support/ pressors Empiric zithromax/ zosyn
--- NOTE | 2017-06-27 10:32 | PN ---
Progress Note (short form) - Note Progress Note: PULMONARY/CCM Pt seen and examined in the ICU. Remains on levophed gtt. States he feels better today. No fevers or chills. Last Vital Signs Temp Pulse Resp BP Pulse Ox 98.1 F 84 24 102/55 94 L 06/27/17 08:00 06/27/17 08:00 06/27/17 08:00 06/27/17 08:00 06/27/17 08:52 Intake & Output 06/24/17 06/25/17 06/26/17 06/27/17 23:59 23:59 23:59 23:59 Intake Total 2100 3154 1368 Output Total 650 2650 400 Balance 1450 504 968 Weight 184 lb 11.2 oz 186 lb 11.704 oz 193 lb 9.054 oz Gen: NAD at rest Heart: RRR Lung: bibasilar rales L>R Abd: soft, nontender Ext: no edema CBC, BMP 06/27/17 05:45 06/27/17 05:45 Active Medications Albuterol/Ipratropium (Duoneb -) 1 amp NEB QIDR [facility] Last Admin: 06/27/17 06:56 Dose: 1 amp Heparin Sodium (Porcine) (Heparin -) 5,000 unit SQ TID [facility] Last Admin: 06/26/17 06:41 Dose: 5,000 unit Sodium Chloride (Normal Saline -) 1,000 mls @ 100 mls/hr IV ASDIR [facility] Last Admin: 06/27/17 08:39 Dose: 100 mls/hr Norepinephrine Bitartrate 8, (000 mcg/ Dextrose) 500 mls @ 18.75 mls/hr IV TITR JIHAN; 5 MCG/MIN PRN Reason: Protocol Last Titration: 06/27/17 07:00 Dose: 4 mcg/min, 15 mls/hr Azithromycin 500 mg/ Dextrose 250 mls @ 250 mls/hr IVPB DAILY JIHAN Last Admin: 06/27/17 09:09 Dose: 250 mls/hr Piperacillin/Tazobactam/Dextrose (Zosyn 3.375gm Ivpb (Premix)) 50 mls @ 100 mls /hr IVPB Q8H-IV JIHAN PRN Reason: Protocol Last Admin: 06/27/17 10:00 Dose: 100 mls/hr A/P Acute Hypoxic Respiratory Failure improving Pneumonia Septic Shock Elevated LFTs likely from ischemic injury Acute Kidney Injury h/o Hairy Cell Leukemia - continue antibiotics - f/u cultures - continue IVF - taper pressors to maintain MAP >65 - O2 to keep Spo2 >90% - inhaled bronchodilators - PO as tolerated - DVT prophylaxis - continue ICU monitoring critical care time spent in reviewing chart, evaluating patient and formulating plan 35 min
--- NOTE | 2017-06-27 14:21 | PN ---
Progress Note (short form) - Note Progress Note: Subjective: The patient was seen and examined at the bedside he has no complaints at this time Remains on Levophed Current Medications Generic Name Dose Route Start Last Admin Trade Name Chandler PRN Reason Stop Dose Admin Albuterol/Ipratropium 1 amp 06/25/17 12:00 06/27/17 11:20 Duoneb - NEB 1 amp QIDR JIHAN Administration Heparin Sodium (Porcine) 5,000 unit 06/25/17 06:00 06/26/17 06:41 Heparin - SQ 5,000 unit TID JIHAN Administration Sodium Chloride 1,000 mls @ 100 mls/hr 06/26/17 01:45 06/27/17 08:39 Normal Saline - IV 100 mls/hr ASDIR JIHAN Administration Norepinephrine Bitartrate 8, 500 mls @ 18.75 mls/hr 06/26/17 05:00 06/27/17 10:50 000 mcg/ Dextrose IV 2 mcg/min TITR JIHAN 7.5 mls/hr Protocol Titration 5 MCG/MIN Azithromycin 500 mg/ Dextrose 250 mls @ 250 mls/hr 06/26/17 10:00 06/27/17 09 :09 IVPB 250 mls/hr DAILY JIHAN Administration Piperacillin/Tazobactam/Dextrose 50 mls @ 100 mls/hr 06/26/17 10:00 06/27/17 10:00 Zosyn 3.375gm Ivpb (Premix) IVPB 100 mls/hr Q8H-IV JIHAN Administration Protocol Objective: Vital Signs Period Temp Pulse Resp BP Sys/Puentes Pulse Ox Last 24 Hr 97.8 F-98.4 F 77-94 21-32 83-113/43-86 88-94 Physical Exam: General: NAD, A&Ox3 Lungs: Left crackles Heart: RRR, S1S2 Abd: Soft, non-tender, non-distended. Normoactive bowel sounds Ext: Warm, well-perfused. 2+ DP/PT bilaterally Neuro: CN 2-12 intact CBCD WBC 3.7 K/mm3 (4.0-10.0) L 06/27/17 05:45 RBC 2.56 M/mm3 (4.00-5.60) L 06/27/17 05:45 Hgb 7.6 GM/dL (11.7-16.9) L 06/27/17 05:45 Hct 23.1 % (35.4-49) L 06/27/17 05:45 MCV 90.1 fl (80-96) 06/27/17 05:45 MCHC 32.9 g/dl (32.0-35.9) 06/27/17 05:45 RDW 17.6 % (11.9-15.9) H 06/27/17 05:45 Plt Count 187 K/MM3 (134-434) 06/27/17 05:45 MPV 8.3 fl (7.5-11.1) 06/27/17 05:45 CMP Sodium 138 mmol/L (136-145) 06/27/17 05:45 Potassium 3.7 mmol/L (3.5-5.1) 06/27/17 05:45 Chloride 103 mmol/L (98-107) 06/27/17 05:45 Carbon Dioxide 23 mmol/L (21-32) 06/27/17 05:45 Anion Gap 12 (8-16) 06/27/17 05:45 BUN 24 mg/dL (7-18) H D 06/27/17 05:45 Creatinine 0.9 mg/dL (0.7-1.3) D 06/27/17 05:45 Creat Clearance w eGFR > 60 (>60) 06/27/17 05:45 Random Glucose 136 mg/dL (74-106) H D 06/27/17 05:45 Calcium 6.9 mg/dL (8.5-10.1) L* 06/27/17 05:45 Total Bilirubin 4.1 mg/dL (0.2-1.0) H 06/27/17 05:45 AST 37 U/L (15-37) D 06/27/17 05:45 ALT 91 U/L (12-78) H D 06/27/17 05:45 Alkaline Phosphatase 80 U/L (45-117) 06/27/17 05:45 Total Protein 4.2 g/dl (6.4-8.2) L 06/27/17 05:45 Albumin 1.3 g/dl (3.4-5.0) L 06/27/17 05:45 CARDIAC ENZYMES Creatine Kinase 27 IU/L (39-308) L 06/24/17 17:38 Troponin I < 0.03 ng/ml (0.03-0.50) L 06/24/17 17:38 Microbiology 06/24/17 18:47 Blood - Peripheral Venous Blood Culture - Preliminary NO GROWTH OBTAINED AFTER 48 HOURS, INCUBATION TO CONTINUE FOR 3 DAYS. 06/24/17 18:47 Blood - Peripheral Venous Blood Culture - Preliminary NO GROWTH OBTAINED AFTER 48 HOURS, INCUBATION TO CONTINUE FOR 3 DAYS. 06/24/17 23:20 Urine - Urine Clean Catch Urine Culture - Final NO GROWTH OBTAINED 06/26/17 04:50 Nasopharyngeal Swab Influenza Types A,B Antigen (SHARON) - Final 06/26/17 04:50 Nasopharyngeal Swab - Final 06/24/17 23:20 Urine - Urine Clean Catch Legionella Antigen - Final 06/24/17 23:20 Urine - Urine Clean Catch Streptococcus pneumoniae Antigen ( M - Final Assessment: This is an 82 year old male with PMHx of anemia, hairy cell leukemia , colon polyp, HTN who presented to the ED with general malaise, lethargy, cough. He became hypotensive and lethargic yesterday and was transferred to the ICU and started on pressors Plan: 1) ID: Septic shock 2/2 community acquired pneumonia - Continue Zosyn, Azithromycin - Continue Norepi, keep MAP >65 - Hold all anti HTNs - Influenza A&B negative - Negative urine legionella Ag - Leukopenia - Appreciate ID consult - Appreciate critical care consul 2) GI: Transaminitis - Improving - Elevated possibly 2/2 congestion/septic shock - Liver ultrasound with hepatomegaly. Gallbladder sludge and stones without sonographic evidence of acute cholecystitis. Non-visualized pancreas - Hepatitis A,B panel negative - F/u HCV - Appreciate GI consult 3) Heme: Acute severe anemia - Received 1u PRBC - Transfuse if Hgb <7 - Will need CTAP and CT chest when stable to assess for cause of bleeding and pneumonia - F/u stool for occult blood - Appreciate oncology consult 4) Cardiology: LV systolic dysfunction - Chronic - ECHO reviewed - Hold bblocker for now given hypotension - Hold acei given hypotension - Hold spironolactone for now, may consider adding once off pressors and medically stable 5) Hairy cell leukemia - ANC 1398 - Management per oncology 6) F/E/N: - Regular diet - Monitor electrolytes 7) Prophylaxis: - Heparin 5,000u sq bid 8) Dispo: - Requires continued ICU care as the patient remains on pressors for BP support CODE STATUS: FULL CODE Visit type - Emergency Visit Emergency Visit: Yes ED Registration Date: 06/24/17 Care time: The patient presented to the Emergency Department on the above date and was hospitalized for further evaluation of their emergent condition. - New Patient This patient is new to me today: No - Critical Care Critical Care patient: No
--- NOTE | 2017-06-27 17:07 | PN ---
GI Progress Note Subjective: GI NOte ( covering Dr Rahman): LFTs are slightly improved and bilirubin has leveled off. Appetite poor but denies any abdominal pain to suggest biliary colic. Discussed situation with and daughter at the bedside. - Objective Vital Signs: Vital Signs Temperature 98.7 F 06/27/17 14:00 Pulse Rate 89 06/27/17 16:19 Respiratory Rate 20 06/27/17 16:00 Blood Pressure 103/56 06/27/17 16:19 O2 Sat by Pulse Oximetry (%) 94 L 06/27/17 08:52 Laboratory Tests 06/27/17 05:45 Total Bilirubin 4.1 H Direct Bilirubin 3.6 H AST 37 D ALT 91 H D Alkaline Phosphatase 80 Albumin 1.3 L Constitutional: Calm Eyes: Yes: Sclera Icterus ...Auscultate: Yes: Normoactive Bowel Sounds ...Palpate: Yes: Soft, Other (nontender) Labs: CBC, BMP 06/27/17 05:45 06/27/17 05:45 INR, PTT INR 1.43 (0.82-1.09) H 06/24/17 17:38 Assessment/Plan Jaundice of sepsis vs obstructive. Would expect higher alkaline phosphatase and pain if there was a CBD stone. Will order MRCP however if LFTs begin to rise.
[2017-06-27] MEDS ORDERED: HEPARIN NA (PORCINE) 5,000 UNITS/ML 1ML VIAL SQ SCH (22:00)
[2017-06-28] MEDS: PIPERACILLIN/TAZOB 3.375 GM 50 ML IVPB SCH ×3 (01:12→21:23)
[2017-06-28] MEDS: ALBUTEROL SO4 2.5/IPRATROPIUM 0.5 INH SOL 3 ML VIAL.NEB. NEB SCH ×4 (06:02→23:07)
[2017-06-28 06:46] LABS: BASOPHIL 0.3 % (0-2.0); EOSINOPHIL 0.3 % (0-4.5); MCH 29.4 pg (25.7-33.7); MCHC 32.6 g/dl (32.0-35.9); MEAN CELL VOLUME 90.2 fl (80-96); MEAN PLT VOLUME 8.3 fl (7.5-11.1); NEUTROPHILS 89.7 % (42.8-82.8); PLATELET COUNT 174 K/MM3 (134-434); RDW 17.3 % (11.9-15.9); WHITE BLOOD COUNT 2.8 K/mm3 (4.0-10.0)
[2017-06-28 07:20] LABS: ALBUMIN 1.2 g/dl (3.4-5.0); ALK PHOS 73 U/L (45-117); ANION GAP 8 (8-16); BILIRUBIN,TOTAL 3.7 mg/dL (0.2-1.0); CO2 26 mmol/L (21-32); CREATININE 0.8 mg/dL (0.7-1.3); GLUCOSE,RANDOM 116 mg/dL (74-106); MAGNESIUM 2.2 mg/dL (1.8-2.4); PHOSPHOROUS 2.5 mg/dL (2.5-4.9); SGOT/AST 36 U/L (15-37); SGPT/ALT 67 U/L (12-78); TOT PROT 4.1 g/dl (6.4-8.2)
[2017-06-28 07:33] LABS: CALCIUM 6.9 mg/dL (8.5-10.1)
[2017-06-28] MEDS: AZITHROMYCIN IVPB 500 MG in DEXTROSE 5%-WATER - 250 ML IVPB SCH (09:08)
--- NOTE | 2017-06-28 09:20 | PN ---
Progress Note, Physician History of Present Illness: Awake, alert No complaints Denies chest pain/ dyspnea/ cough No c/o fever/ chills Afebrile Off pressors WBC 2.8 89%N ANC 2.4 Blood c/s no growth - Current Medication List Current Medications: Active Medications Albuterol/Ipratropium (Duoneb -) 1 amp NEB QIDR [facility] Last Admin: 06/28/17 06:02 Dose: Not Given Heparin Sodium (Porcine) (Heparin -) 5,000 unit SQ BID [facility] Last Admin: 06/28/17 09:13 Dose: 5,000 unit Sodium Chloride (Normal Saline -) 1,000 mls @ 100 mls/hr IV ASDIR [facility] Last Admin: 06/27/17 21:05 Dose: 100 mls/hr Azithromycin 500 mg/ Dextrose 250 mls @ 250 mls/hr IVPB DAILY [facility] Last Admin: 06/28/17 09:08 Dose: 250 mls/hr Piperacillin/Tazobactam/Dextrose (Zosyn 3.375gm Ivpb (Premix)) 50 mls @ 100 mls /hr IVPB Q8H-IV JIHAN PRN Reason: Protocol Last Admin: 06/28/17 01:12 Dose: 100 mls/hr - Objective Vital Signs: Vital Signs Temperature 98.3 F 06/28/17 06:00 Pulse Rate 96 H 06/28/17 08:00 Respiratory Rate 29 H 06/28/17 08:00 Blood Pressure 109/59 06/28/17 08:00 O2 Sat by Pulse Oximetry (%) 88 L 06/28/17 04:48 Constitutional: Yes: No Distress Eyes: Yes: Conjunctiva Clear Cardiovascular: Yes: Regular Rate and Rhythm, S1, S2 Respiratory: Yes: Other (+ rales both lung rowland L>R) Gastrointestinal: Yes: Normal Bowel Sounds, Soft, Abdomen, Obese. No: Tenderness Genitourinary: Yes: Gar Present, Other (urine blood-tinged) Edema: No Labs: CBC, BMP 06/28/17 05:40 06/28/17 05:40 INR, PTT INR 1.43 (0.82-1.09) H 06/24/17 17:38 Assessment/Plan Extensive L sided pneumonia Sepsis secondary to pneumonia HCL/MDS/ chronic pancytopenia Elevated LFTs- improved Cultures no growth. CXR clearing L lung field Continue empiric zithromax/ zosyn
--- NOTE | 2017-06-28 09:51 | PN ---
Progress Note (short form) - Note Progress Note: PULMONARY/CCM Pt seen and examined in the ICU. Off levophed gtt. Continues to feel better. No fevers or chills. Last Vital Signs Temp Pulse Resp BP Pulse Ox 98.3 F 96 H 29 H 109/59 93 L 06/28/17 06:00 06/28/17 08:00 06/28/17 09:00 06/28/17 08:00 06/28/17 09:00 Intake & Output 06/25/17 06/26/17 06/27/17 06/28/17 23:59 23:59 23:59 23:59 Intake Total 2100 3154 3596 500 Output Total 650 2650 1690 790 Balance 9103 372 4581 -290 Weight 186 lb 11.704 oz 193 lb 9.054 oz Gen: NAD at rest Heart: RRR Lung: bibasilar rales L>R Abd: soft, nontender Ext: no edema CBC, BMP 06/28/17 05:40 06/28/17 05:40 Active Medications Albuterol/Ipratropium (Duoneb -) 1 amp NEB QIDR [facility] Last Admin: 06/28/17 06:02 Dose: Not Given Heparin Sodium (Porcine) (Heparin -) 5,000 unit SQ BID [facility] Last Admin: 06/28/17 09:13 Dose: 5,000 unit Sodium Chloride (Normal Saline -) 1,000 mls @ 100 mls/hr IV ASDIR [facility] Last Admin: 06/27/17 21:05 Dose: 100 mls/hr Azithromycin 500 mg/ Dextrose 250 mls @ 250 mls/hr IVPB DAILY [facility] Last Admin: 06/28/17 09:08 Dose: 250 mls/hr Piperacillin/Tazobactam/Dextrose (Zosyn 3.375gm Ivpb (Premix)) 50 mls @ 100 mls /hr IVPB Q8H-IV JIHAN PRN Reason: Protocol Last Admin: 06/28/17 09:33 Dose: 100 mls/hr A/P Acute Hypoxic Respiratory Failure improving Pneumonia Septic Shock Elevated LFTs likely from ischemic injury Acute Kidney Injury h/o Hairy Cell Leukemia - continue antibiotics - f/u cultures - can d/c IVF if tolerating PO - O2 to keep Spo2 >90% - inhaled bronchodilators - send stool occult blood - monitor H/H - transfuse as needed - will d/c central line - OOB to chair - DVT prophylaxis - can transfer to floor critical care time spent in reviewing chart, evaluating patient and formulating plan 35 min
--- NOTE | 2017-06-28 10:43 | PN ---
GI Progress Note Subjective: GI NOte ( covering Dr Rahman): No abdominal pain. Had a brown BM yesterday. Hb drifting down but so is the bilirubin. Denies past h/o GI bleeding. Had colonoscopy about 5 years ago. Takes NSAIDs intermittently. - Objective Vital Signs: Vital Signs Temperature 98.3 F 06/28/17 06:00 Pulse Rate 96 H 06/28/17 08:00 Respiratory Rate 29 H 06/28/17 09:00 Blood Pressure 109/59 06/28/17 08:00 O2 Sat by Pulse Oximetry (%) 93 L 06/28/17 09:00 Laboratory Tests 06/26/17 06/26/17 06/26/17 09:41 09:41 09:41 Hgb 7.8 L D Total Bilirubin 5.3 H Direct Bilirubin 4.4 H AST 59 H 88 H D ALT 127 H 143 H Alkaline Phosphatase 86 80 Albumin 06/27/17 06/27/17 06/28/17 05:45 05:45 05:40 Hgb 7.6 L Total Bilirubin 4.1 H 3.7 H Direct Bilirubin 3.6 H 3.0 H AST 37 D 36 ALT 91 H D Alkaline Phosphatase 80 73 Albumin 1.2 L 06/28/17 05:40 Hgb 7.3 L Total Bilirubin Direct Bilirubin AST ALT Alkaline Phosphatase Albumin Constitutional: No Distress Eyes: Yes: Sclera Icterus ...Auscultate: Yes: Normoactive Bowel Sounds ...Palpate: Yes: Soft, Other (nontender) Labs: CBC, BMP 06/28/17 05:40 06/28/17 05:40 INR, PTT INR 1.43 (0.82-1.09) H 06/24/17 17:38 Assessment/Plan Still appears to be jaundice of sepsis rather than obstructive. No overt bleeding but will send stool for occult blood and give PPI to prevent stress gastritis. Discussed case with Dr Simon.
--- NOTE | 2017-06-28 12:29 | PN ---
Progress Note (short form) - Note Progress Note: Subjective: The patient was seen and examined at the bedside he has no complaints at this time Off levophed Current Medications Generic Name Dose Route Start Last Admin Trade Name Chandler PRN Reason Stop Dose Admin Albuterol/Ipratropium 1 amp 06/25/17 12:00 06/28/17 11:35 Duoneb - NEB 1 amp QIDR JIHAN Administration Heparin Sodium (Porcine) 5,000 unit 06/27/17 22:00 06/28/17 09:13 Heparin - SQ 5,000 unit BID JIHAN Administration Sodium Chloride 1,000 mls @ 100 mls/hr 06/26/17 01:45 06/27/17 21:05 Normal Saline - IV 100 mls/hr ASDIR JIHAN Administration Azithromycin 500 mg/ Dextrose 250 mls @ 250 mls/hr 06/26/17 10:00 06/28/17 09 :08 IVPB 250 mls/hr DAILY JIHAN Administration Piperacillin/Tazobactam/Dextrose 50 mls @ 100 mls/hr 06/26/17 10:00 06/28/17 09:33 Zosyn 3.375gm Ivpb (Premix) IVPB 100 mls/hr Q8H-IV JIHAN Administration Protocol Pantoprazole Sodium 40 mg 06/28/17 22:00 Protonix - PO BID JIHAN Objective: Vital Signs Period Temp Pulse Resp BP Sys/Puentes Pulse Ox Last 24 Hr 97.5 F-99.3 F 85-103 20-35 98-110/49-76 88-93 Physical Exam: General: NAD, A&Ox3 Lungs: Left breath sounds decreased Heart: RRR, S1S2 Abd: Soft, non-tender, non-distended. Normoactive bowel sounds Ext: Warm, well-perfused. 2+ DP/PT bilaterally Neuro: CN 2-12 intact CBCD WBC 2.8 K/mm3 (4.0-10.0) L 06/28/17 05:40 RBC 2.47 M/mm3 (4.00-5.60) L 06/28/17 05:40 Hgb 7.3 GM/dL (11.7-16.9) L 06/28/17 05:40 Hct 22.3 % (35.4-49) L 06/28/17 05:40 MCV 90.2 fl (80-96) 06/28/17 05:40 MCHC 32.6 g/dl (32.0-35.9) 06/28/17 05:40 RDW 17.3 % (11.9-15.9) H 06/28/17 05:40 Plt Count 174 K/MM3 (134-434) 06/28/17 05:40 MPV 8.3 fl (7.5-11.1) 06/28/17 05:40 CMP Sodium 140 mmol/L (136-145) 06/28/17 05:40 Potassium 3.9 mmol/L (3.5-5.1) 06/28/17 05:40 Chloride 106 mmol/L (98-107) 06/28/17 05:40 Carbon Dioxide 26 mmol/L (21-32) 06/28/17 05:40 Anion Gap 8 (8-16) 06/28/17 05:40 BUN 21 mg/dL (7-18) H 06/28/17 05:40 Creatinine 0.8 mg/dL (0.7-1.3) 06/28/17 05:40 Creat Clearance w eGFR > 60 (>60) 06/28/17 05:40 Random Glucose 116 mg/dL (74-106) H 06/28/17 05:40 Calcium 6.9 mg/dL (8.5-10.1) L* 06/28/17 05:40 Total Bilirubin 3.7 mg/dL (0.2-1.0) H 06/28/17 05:40 AST 36 U/L (15-37) 06/28/17 05:40 ALT 67 U/L (12-78) D 06/28/17 05:40 Alkaline Phosphatase 73 U/L (45-117) 06/28/17 05:40 Total Protein 4.1 g/dl (6.4-8.2) L 06/28/17 05:40 Albumin 1.2 g/dl (3.4-5.0) L 06/28/17 05:40 CARDIAC ENZYMES Creatine Kinase 27 IU/L (39-308) L 06/24/17 17:38 Troponin I < 0.03 ng/ml (0.03-0.50) L 06/24/17 17:38 Microbiology 06/24/17 18:47 Blood - Peripheral Venous Blood Culture - Preliminary NO GROWTH OBTAINED AFTER 72 HOURS, INCUBATION TO CONTINUE FOR 2 DAYS. 06/24/17 18:47 Blood - Peripheral Venous Blood Culture - Preliminary NO GROWTH OBTAINED AFTER 72 HOURS, INCUBATION TO CONTINUE FOR 2 DAYS. 06/24/17 23:20 Urine - Urine Clean Catch Urine Culture - Final NO GROWTH OBTAINED 06/26/17 04:50 Nasopharyngeal Swab Influenza Types A,B Antigen (SHARON) - Final 06/26/17 04:50 Nasopharyngeal Swab - Final 06/24/17 23:20 Urine - Urine Clean Catch Legionella Antigen - Final 06/24/17 23:20 Urine - Urine Clean Catch Streptococcus pneumoniae Antigen ( M - Final Assessment: This is an 82 year old male with PMHx of anemia, hairy cell leukemia , colon polyp, HTN who presented to the ED with general malaise, lethargy, cough. He became hypotensive and lethargic yesterday and was transferred to the ICU and started on pressors Plan: 1) ID: Septic shock 2/2 community acquired pneumonia - Continue Zosyn, Azithromycin - Hold all anti HTNs - Influenza A&B negative - Negative urine legionella Ag - Leukopenia - Appreciate ID consult - Appreciate critical care consul 2) GI: Transaminitis - AST/ALT resolved - Total bili remains elevated, however is trending down - Elevated possibly 2/2 congestion/septic shock - Liver ultrasound with hepatomegaly. Gallbladder sludge and stones without sonographic evidence of acute cholecystitis. Non-visualized pancreas - Hepatitis A,B panel negative - HCV negative - Appreciate GI consult 3) Heme: Acute on chronic anemia - Received 1u PRBC - Transfuse if Hgb <7 - F/u stool for occult blood - Appreciate oncology consult 4) Cardiology: LV systolic dysfunction - Chronic - ECHO reviewed - Hold bblocker for now given hypotension - Hold acei given hypotension - Hold spironolactone for now, may consider adding once off pressors and medically stable 5) Hairy cell leukemia - Management per oncology 6) F/E/N: - Regular diet - Monitor electrolytes - PPI 7) Prophylaxis: - Heparin 5,000u sq bid 8) Dispo: - Requires continued inpatient care CODE STATUS: FULL CODE Visit type - Emergency Visit Emergency Visit: Yes ED Registration Date: 06/24/17 Care time: The patient presented to the Emergency Department on the above date and was hospitalized for further evaluation of their emergent condition. - New Patient This patient is new to me today: No - Critical Care Critical Care patient: No
[2017-06-28] MEDS: SODIUM CHLORIDE 1,000 ML IV SCH (15:32)
[2017-06-28] MEDS ORDERED: SODIUM CHLORIDE 1,000 ML IV SCH (16:19)
[2017-06-28] MEDS: HEPARIN NA (PORCINE) 5,000 UNITS/ML 1ML VIAL SQ SCH (21:31)
[2017-06-28] MEDS: PANTOPRAZOLE 40 MG TABLET (FP) PO SCH (21:33)
[2017-06-28] MEDS ORDERED: SODIUM CHLORIDE 100 ML IV SCH (22:15)
[2017-06-29] MEDS: PIPERACILLIN/TAZOB 3.375 GM 50 ML IVPB SCH ×3 (03:00→17:57)
[2017-06-29] MEDS: ALBUTEROL SO4 2.5/IPRATROPIUM 0.5 INH SOL 3 ML VIAL.NEB. NEB SCH ×4 (06:10→23:38)
[2017-06-29 07:20] LABS: BASOPHIL 0.2 % (0-2.0); EOSINOPHIL 0.3 % (0-4.5); MCH 29.6 pg (25.7-33.7); MCHC 32.8 g/dl (32.0-35.9); MEAN CELL VOLUME 90.2 fl (80-96); MEAN PLT VOLUME 8.2 fl (7.5-11.1); NEUTROPHILS 92.3 % (42.8-82.8); PLATELET COUNT 184 K/MM3 (134-434); RDW 17.6 % (11.9-15.9); WHITE BLOOD COUNT 2.4 K/mm3 (4.0-10.0)
[2017-06-29 07:39] LABS: INR 1.36 (0.82-1.09); PROTHROMBIN TIME (PATIENT) 15.4 SEC (9.98-11.88)
[2017-06-29 07:41] LABS: ACTIVATED PTT 31.8 SECONDS (26.9-34.4)
[2017-06-29 07:59] LABS: ALBUMIN 1.3 g/dl (3.4-5.0); ANION GAP 10 (8-16); CO2 24 mmol/L (21-32); GLUCOSE,RANDOM 118 mg/dL (74-106); MAGNESIUM 2.1 mg/dL (1.8-2.4)
[2017-06-29 08:07] LABS: ALK PHOS 71 U/L (45-117); BILIRUBIN,DIRECT 2.9 mg/dL (0.0-0.2); BILIRUBIN,TOTAL 3.7 mg/dL (0.2-1.0); CALCIUM 7.1 mg/dL (8.5-10.1); CREATININE 0.8 mg/dL (0.7-1.3); PHOSPHOROUS 2.3 mg/dL (2.5-4.9); SGOT/AST 30 U/L (15-37); SGPT/ALT 57 U/L (12-78); TOT PROT 4.5 g/dl (6.4-8.2)
--- NOTE | 2017-06-29 09:33 | PN ---
Physical Exam: SUBJECTIVE: Patient seen and examined at the bedside. he is is sitting in the chair, denies shortness of breath at rest, but he clearly is On 5 liters of nasal cannula, refusing venti mask. OBJECTIVE: Stop IVF, appears to be fluid overloaded, his hands are edematous, bilateral lower ext with trace edema He also has fine crackles on bilateral lower lobes. mental status unchanged If his breathing does not improve off IVF will consider Lasix, with close BP monitoring Albuterol scheduled hmg/hct down trending, repeat labs at 1p, transfuse 1 unit if trends down Vital Signs Period Temp Pulse Resp BP Sys/Puentes Pulse Ox Last 24 Hr 97.5 F-98.3 F 90-104 16-35 93-124/37-63 92 GENERAL: The patient is awake, alert, and fully oriented, in mild respiratory distress. HEAD: Normal with no signs of trauma. EYES: PERRL, extraocular movements intact, sclera anicteric, conjunctiva clear. No ptosis. ENT: Ears normal, nares patent, oropharynx clear without exudates, moist mucous membranes. NECK: Trachea midline, full range of motion, supple. LUNGS: fine crackles at bilateral bases, shortness of breath at rest, on 5 liters of nasal cannula HEART: Regular rate and rhythm, S1, S2 without murmur, rub or gallop. ABDOMEN: soft, nontender, mildly distended, +bowel sounds EXTREMITIES: trace bilateral lower ext edema, bilateral hand edema NEUROLOGICAL: Normal speech, gait not observed. PSYCH: Normal mood, normal affect. SKIN: Warm, dry, normal turgor, no rashes or lesions noted Laboratory Results - last 24 hr 06/26/17 06/29/17 06/29/17 03:50 06:00 06:00 WBC 2.4 L RBC 2.46 L Hgb 7.3 L Hct 22.2 L MCV 90.2 MCH 29.6 MCHC 32.8 RDW 17.6 H Plt Count 184 MPV 8.2 Neutrophils % 92.3 H Lymphocytes % 6.5 L D Monocytes % 0.7 L Eosinophils % 0.3 Basophils % 0.2 PT with INR INR PTT (Actin FS) Sodium 140 Potassium 3.9 Chloride 106 Carbon Dioxide 24 Anion Gap 10 BUN 17 Creatinine 0.8 Creat Clearance w eGFR > 60 Random Glucose 118 H Calcium 7.1 L Phosphorus 2.3 L Magnesium 2.1 Total Bilirubin 3.7 H Direct Bilirubin 2.9 H AST 30 ALT 57 Alkaline Phosphatase 71 Total Protein 4.5 L Albumin 1.3 L Blood Type A POSITIVE Crossmatch See Detail 06/29/17 06:00 WBC RBC Hgb Hct MCV MCH MCHC RDW Plt Count MPV Neutrophils % Lymphocytes % Monocytes % Eosinophils % Basophils % PT with INR 15.40 H INR 1.36 H PTT (Actin FS) 31.8 Sodium Potassium Chloride Carbon Dioxide Anion Gap BUN Creatinine Creat Clearance w eGFR Random Glucose Calcium Phosphorus Magnesium Total Bilirubin Direct Bilirubin AST ALT Alkaline Phosphatase Total Protein Albumin Blood Type Crossmatch Active Medications Generic Name Dose Route Start Last Admin Trade Name Freq PRN Reason Stop Dose Admin Albuterol/Ipratropium 1 amp 06/28/17 18:00 06/29/17 06:10 Duoneb - NEB 1 amp QIDR JIHAN Administration Heparin Sodium (Porcine) 5,000 unit 06/28/17 22:00 06/28/17 21:31 Heparin - SQ 5,000 unit BID JIHAN Administration Azithromycin 500 mg/ Dextrose 250 mls @ 250 mls/hr 06/29/17 10:00 IVPB DAILY JIHAN Piperacillin/Tazobactam/Dextrose 50 mls @ 100 mls/hr 06/28/17 18:00 06/29/17 03:00 Zosyn 3.375gm Ivpb (Premix) IVPB 100 mls/hr Q8H-IV JIHAN Administration Protocol Pantoprazole Sodium 40 mg 06/28/17 22:00 06/28/17 21:33 Protonix - PO 40 mg BID JIHAN Administration ASSESSMENT/PLAN: Patient is an 82 year old male with a significant past medical history of anemia , hairy cell leukemia, colon polyp and hypertension. He presented to the ED on 06/24/2017 with general malaise, lethargy and cough. According to the ED notes, pt was seen by his PCP but his symptoms progressively became worse. Pt also reports discolored urine last week, states it was bloody. He is s/p ICU transfer for hypotension and lethargy. On my exam, patient is awake, alert, he denies shortness of breath but he clearly is using accessory muscles. He denies cough, refusing the venti mask. Patient denies abdominal pain, diarrhea, or chest pain. ID: Septic shock secondary to pneumonia, resolved Pneumonia in an immunosupressed pt, acute ANC calculated @ 2479 Continues to have SOB at rest, pneumonia under treatment with Zosyn and Azithromycin Blood pressure low stable at this time, will stop IVF secondary to fluid overload Will hold off on Lasix, since BP is still on the low side Monitor BP off IVFs Duonebs scheduled QID Incentive spirometer On 5 liters of nasal cannula with sats in the mid 90s at rest GI: Elevated AST/ALT, resolved Monitor trend Bili remains elevated but unchanged hepatitis panel Hematology: Anemia, acute on chronic Anemia with fatigue and shortness of breath with generalized weakness Likely secondary to leukemia CBC repeat this afternoon (may be dilutional), if continues to trend down, will transfuse 1 unit Cardiology: Hypertension, now with hypotension Echo shows LV systolic is moderate to severely reduced LA mildly dilated, mild MR, mod TR, RV systolic p ressure elevated, moderate aortic scheloris, trivial pericardial effusion On home Propanalol which is on hold for hypotension Oncology: Hairy cell leukemia, chronic Oncology following F.E.N. Fluids: monitor off IVF Electrolytes: corrected calcium 9.3, phos 2.3: monitor Nutrition: regular diet Prophyalxis: DVT: Heparin BID, monitor in setting of anemia GI: Protonix Dispostion: full code. Visit type - Emergency Visit Emergency Visit: Yes ED Registration Date: 06/24/17 Care time: The patient presented to the Emergency Department on the above date and was hospitalized for further evaluation of their emergent condition. - New Patient This patient is new to me today: Yes Date on this admission: 06/29/17 - Critical Care Critical Care patient: No - Discharge Referral Referred to [facility] No
[2017-06-29] MEDS: AZITHROMYCIN IVPB 500 MG in DEXTROSE 5%-WATER - 250 ML IVPB SCH (10:14)
[2017-06-29] MEDS: PANTOPRAZOLE 40 MG TABLET (FP) PO SCH ×2 (10:14→22:21)
[2017-06-29] MEDS: HEPARIN NA (PORCINE) 5,000 UNITS/ML 1ML VIAL SQ SCH ×2 (10:14→22:21)
[2017-06-29 13:37] LABS: BASOPHIL 0.4 % (0-2.0); EOSINOPHIL 0.5 % (0-4.5); MCH 29.1 pg (25.7-33.7); MCHC 31.9 g/dl (32.0-35.9); MEAN CELL VOLUME 91.3 fl (80-96); MEAN PLT VOLUME 7.7 fl (7.5-11.1); NEUTROPHILS 91.8 % (42.8-82.8); PLATELET COUNT 196 K/MM3 (134-434); RDW 17.2 % (11.9-15.9); WHITE BLOOD COUNT 2.7 K/mm3 (4.0-10.0)
--- NOTE | 2017-06-29 14:57 | PN ---
Progress Note, Physician History of Present Illness: Awake, alert OOB in chair No complaints of dyspnea/cough No c/o fever/ chills Afebrile WBC 2.7 92%N Blood c/s no growth - Current Medication List Current Medications: Active Medications Albuterol/Ipratropium (Duoneb -) 1 amp NEB QIDR [facility] Last Admin: 06/29/17 06:10 Dose: 1 amp Heparin Sodium (Porcine) (Heparin -) 5,000 unit SQ BID [facility] Last Admin: 06/29/17 10:14 Dose: 5,000 unit Azithromycin 500 mg/ Dextrose 250 mls @ 250 mls/hr IVPB DAILY [facility] Last Admin: 06/29/17 10:14 Dose: 250 mls/hr Piperacillin/Tazobactam/Dextrose (Zosyn 3.375gm Ivpb (Premix)) 50 mls @ 100 mls /hr IVPB Q8H-IV JIHAN PRN Reason: Protocol Last Admin: 06/29/17 10:14 Dose: 100 mls/hr Pantoprazole Sodium (Protonix -) 40 mg PO BID [facility] Last Admin: 06/29/17 10:14 Dose: 40 mg - Objective Vital Signs: Vital Signs Temperature 98.1 F 06/29/17 08:00 Pulse Rate 99 H 06/29/17 08:00 Respiratory Rate 20 06/29/17 08:00 Blood Pressure 112/57 06/29/17 08:00 O2 Sat by Pulse Oximetry (%) 94 L 06/29/17 09:00 Constitutional: Yes: No Distress, Obese Eyes: Yes: Conjunctiva Clear Cardiovascular: Yes: Regular Rate and Rhythm, S1, S2 Respiratory: Yes: Other (+ rales L lung field) Gastrointestinal: Yes: Normal Bowel Sounds, Soft, Abdomen, Obese. No: Tenderness Edema: Yes Labs: CBC, BMP 06/29/17 13:15 06/29/17 06:00 INR, PTT INR 1.36 (0.82-1.09) H 06/29/17 06:00 Assessment/Plan Extensive L sided pneumonia Sepsis secondary to pneumonia HCL/MDS/ chronic pancytopenia Elevated LFTs- resolved Cultures no growth. CXR clearing L lung field Continue empiric zithromax/ zosyn
--- NOTE | 2017-06-29 16:40 | PN ---
Progress Note (short form) - Note Progress Note: Pt seen 11:30 AM seated in chair and notes he is comfortable transferred to floor and is off pressor support moving bowels, unclear if dark and he denies brbpr PE non-toxic awake, alert lungs - sl improved air entry CVS-reg S1S2 abd-soft, NT ext-1+ bilat LE edema Imp: Improving extensive pna in pt w HCL/MDS and chronic pancytopenia. Neutrophil and plt counts have responded to infxn. h/h below baseline and agree w monitoring for bleeding. Has rec'd transfusion and may require more w attn to fluid status. Appreciate GI f/u. Direct bili improving and transamonitis resolved. Appreciate ID mgmt
--- NOTE | 2017-06-29 18:10 | PN ---
Progress Note, Physician History of Present Illness: Chart reviewed. Events noted. Multiple family members at bedside. Offers no complaints. - Current Medication List Current Medications: Active Medications Albuterol/Ipratropium (Duoneb -) 1 amp NEB QIDR [facility] Last Admin: 06/29/17 17:28 Dose: 1 amp Heparin Sodium (Porcine) (Heparin -) 5,000 unit SQ BID [facility] Last Admin: 06/29/17 10:14 Dose: 5,000 unit Azithromycin 500 mg/ Dextrose 250 mls @ 250 mls/hr IVPB DAILY [facility] Last Admin: 06/29/17 10:14 Dose: 250 mls/hr Piperacillin/Tazobactam/Dextrose (Zosyn 3.375gm Ivpb (Premix)) 50 mls @ 100 mls /hr IVPB Q8H-IV JIHAN PRN Reason: Protocol Last Admin: 06/29/17 17:57 Dose: 100 mls/hr Pantoprazole Sodium (Protonix -) 40 mg PO BID [facility] Last Admin: 06/29/17 10:14 Dose: 40 mg - Objective Vital Signs: Vital Signs Temperature 97.2 F L 06/29/17 14:57 Pulse Rate 108 H 06/29/17 14:57 Respiratory Rate 20 06/29/17 14:57 Blood Pressure 104/61 06/29/17 14:57 O2 Sat by Pulse Oximetry (%) 94 L 06/29/17 09:00 Constitutional: Yes: No Distress, Calm Eyes: Yes: Conjunctiva Clear HENT: Yes: Atraumatic Neck: Yes: Supple Respiratory: Yes: Regular Gastrointestinal: Yes: Normal Bowel Sounds, Soft. No: Ascites, Distention, Melena, Tenderness Neurological: Yes: Alert, Oriented Labs: CBC, BMP 06/29/17 13:15 06/29/17 06:00 INR, PTT INR 1.36 (0.82-1.09) H 06/29/17 06:00 CBCD WBC 2.7 K/mm3 (4.0-10.0) L 06/29/17 13:15 RBC 2.53 M/mm3 (4.00-5.60) L 06/29/17 13:15 Hgb 7.4 GM/dL (11.7-16.9) L 06/29/17 13: Hct 23.1 % (35.4-49) L 06/29/17 13:15 MCV 91.3 fl (80-96) 06/29/17 13:15 MCHC 31.9 g/dl (32.0-35.9) L 06/29/17 13:15 RDW 17.2 % (11.9-15.9) H 06/29/17 13:15 Plt Count 196 K/MM3 (134-434) 06/29/17 13:15 MPV 7.7 fl (7.5-11.1) 06/29/17 13:15 CMP Sodium 140 mmol/L (136-145) 06/29/17 06:00 Potassium 3.9 mmol/L (3.5-5.1) 06/29/17 06:00 Chloride 106 mmol/L (98-107) 06/29/17 06:00 Carbon Dioxide 24 mmol/L (21-32) 06/29/17 06:00 Anion Gap 10 (8-16) 06/29/17 06:00 BUN 17 mg/dL (7-18) 06/29/17 06:00 Creatinine 0.8 mg/dL (0.7-1.3) 06/29/17 06:00 Creat Clearance w eGFR > 60 (>60) 06/29/17 06:00 Calcium 7.1 mg/dL (8.5-10.1) L 06/29/17 06:00 Total Bilirubin 3.7 mg/dL (0.2-1.0) H 06/29/17 06:00 AST 30 U/L (15-37) 06/29/17 06:00 ALT 57 U/L (12-78) 06/29/17 06:00 Alkaline Phosphatase 71 U/L (45-117) 06/29/17 06:00 Total Protein 4.5 g/dl (6.4-8.2) L 06/29/17 06:00 Albumin 1.3 g/dl (3.4-5.0) L 06/29/17 06:00 Problem List - Problems (1) Transaminitis Code(s): R74.0 - NONSPEC ELEV OF LEVELS OF TRANSAMNS & LACTIC ACID DEHYDRGNSE (2) Hepatitis Code(s): K75.9 - INFLAMMATORY LIVER DISEASE, UNSPECIFIED (3) 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 DUCT (4) Pneumonia Code(s): J18.9 - PNEUMONIA, UNSPECIFIED ORGANISM Qualifiers: Pneumonia type: due to unspecified organism Laterality: left Lung location: unspecified part of lung Qualified Code(s): J18.9 - Pneumonia, unspecified organism (5) Anemia Code(s): D64.9 - ANEMIA, UNSPECIFIED (6) Septic shock Code(s): A41.9 - SEPSIS, UNSPECIFIED ORGANISM; R65.21 - SEVERE SEPSIS WITH SEPTIC SHOCK Assessment/Plan Persistently elevated direct bili while transaminases and ALP have normalized. Bilirubin should begin to trend down by now. MRI/MRCP Discussed with the patient.
[2017-06-30] MEDS: PIPERACILLIN/TAZOB 3.375 GM 50 ML IVPB SCH ×3 (01:24→18:24)
[2017-06-30] MEDS: ALBUTEROL SO4 2.5/IPRATROPIUM 0.5 INH SOL 3 ML VIAL.NEB. NEB SCH ×4 (06:31→23:18)
[2017-06-30 07:55] LABS: BASOPHIL 0.2 % (0-2.0); EOSINOPHIL 0.3 % (0-4.5); MCH 29.5 pg (25.7-33.7); MCHC 32.4 g/dl (32.0-35.9); MEAN PLT VOLUME 8.1 fl (7.5-11.1); NEUTROPHILS 89.3 % (42.8-82.8); PLATELET COUNT 177 K/MM3 (134-434); RDW 17.5 % (11.9-15.9); WHITE BLOOD COUNT 2.2 K/mm3 (4.0-10.0)
[2017-06-30 08:42] LABS: ALBUMIN 1.4 g/dl (3.4-5.0); ALK PHOS 70 U/L (45-117); ANION GAP 7 (8-16); BILIRUBIN,DIRECT 1.9 mg/dL (0.0-0.2); BILIRUBIN,TOTAL 2.6 mg/dL (0.2-1.0); CALCIUM 7.3 mg/dL (8.5-10.1); CO2 27 mmol/L (21-32); CREATININE 0.8 mg/dL (0.7-1.3); GLUCOSE,RANDOM 123 mg/dL (74-106); MAGNESIUM 2.1 mg/dL (1.8-2.4); SGOT/AST 25 U/L (15-37); SGPT/ALT 49 U/L (12-78); TOT PROT 4.5 g/dl (6.4-8.2)
--- NOTE | 2017-06-30 08:56 | PN ---
Progress Note, Physician History of Present Illness: Events noted. Offers no complaints. MRI/MRCP ordered. Hepatic panel pending this AM. T. bili/D. bili remain elevated. Hgb 6.7 g/dl with no overt signs of GI blood loss ?due to underlying hematologic condition. - Current Medication List Current Medications: Active Medications Albuterol/Ipratropium (Duoneb -) 1 amp NEB QIDR [facility] Last Admin: 06/30/17 06:31 Dose: 1 amp Heparin Sodium (Porcine) (Heparin -) 5,000 unit SQ BID [facility] Last Admin: 06/29/17 22:21 Dose: 5,000 unit Azithromycin 500 mg/ Dextrose 250 mls @ 250 mls/hr IVPB DAILY [facility] Last Admin: 06/29/17 10:14 Dose: 250 mls/hr Piperacillin/Tazobactam/Dextrose (Zosyn 3.375gm Ivpb (Premix)) 50 mls @ 100 mls /hr IVPB Q8H-IV JIHAN PRN Reason: Protocol Last Admin: 06/30/17 01:24 Dose: 100 mls/hr Pantoprazole Sodium (Protonix -) 40 mg PO BID [facility] Last Admin: 06/29/17 22:21 Dose: 40 mg - Objective Vital Signs: Vital Signs Temperature 98.8 F 06/30/17 06:00 Pulse Rate 97 H 06/30/17 06:00 Respiratory Rate 20 06/30/17 06:00 Blood Pressure 99/55 06/30/17 06:00 O2 Sat by Pulse Oximetry (%) 94 L 06/29/17 21:00 Constitutional: Yes: Well Nourished, No Distress, Calm Eyes: Yes: Conjunctiva Clear HENT: Yes: Atraumatic Cardiovascular: Yes: Regular Rate and Rhythm Respiratory: Yes: Regular Gastrointestinal: Yes: Normal Bowel Sounds, Soft. No: Melena, Rectal Bleeding, Tenderness, Tenderness, Epigastrium, Tenderness, Rebound, Vomiting Neurological: Yes: Alert, Oriented Labs: CBC, BMP 06/30/17 06:00 INR, PTT INR 1.36 (0.82-1.09) H 06/29/17 06:00 CBCD WBC 2.2 K/mm3 (4.0-10.0) L 06/30/17 06:00 RBC 2.19 M/mm3 (4.00-5.60) L 06/30/17 06:00 Hgb 6.5 GM/dL (11.7-16.9) L* D 06/30/17 06:00 Hct 20.0 % (35.4-49) L 06/30/17 06:00 MCV 91.0 fl (80-96) 06/30/17 06:00 MCHC 32.4 g/dl (32.0-35.9) 06/30/17 06:00 RDW 17.5 % (11.9-15.9) H 06/30/17 06:00 Plt Count 177 K/MM3 (134-434) 06/30/17 06:00 MPV 8.1 fl (7.5-11.1) 06/30/17 06:00 CMP Sodium 140 mmol/L (136-145) 06/29/17 06:00 Potassium 3.9 mmol/L (3.5-5.1) 06/29/17 06:00 Chloride 106 mmol/L (98-107) 06/29/17 06:00 Carbon Dioxide 24 mmol/L (21-32) 06/29/17 06:00 Anion Gap 10 (8-16) 06/29/17 06:00 BUN 17 mg/dL (7-18) 06/29/17 06:00 Creatinine 0.8 mg/dL (0.7-1.3) 06/29/17 06:00 Creat Clearance w eGFR > 60 (>60) 06/29/17 06:00 Calcium 7.1 mg/dL (8.5-10.1) L 06/29/17 06:00 Total Bilirubin 3.7 mg/dL (0.2-1.0) H 06/29/17 06:00 AST 30 U/L (15-37) 06/29/17 06:00 ALT 57 U/L (12-78) 06/29/17 06:00 Alkaline Phosphatase 71 U/L (45-117) 06/29/17 06:00 Total Protein 4.5 g/dl (6.4-8.2) L 06/29/17 06:00 Albumin 1.3 g/dl (3.4-5.0) L 06/29/17 06:00 - ....Imaging MRI: Pending Problem List - Problems (1) Transaminitis Code(s): R74.0 - NONSPEC ELEV OF LEVELS OF TRANSAMNS & LACTIC ACID DEHYDRGNSE (2) Hepatitis Code(s): K75.9 - INFLAMMATORY LIVER DISEASE, UNSPECIFIED (3) 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 DUCT (4) Pneumonia Code(s): J18.9 - PNEUMONIA, UNSPECIFIED ORGANISM Qualifiers: Pneumonia type: due to unspecified organism Laterality: left Lung location: unspecified part of lung Qualified Code(s): J18.9 - Pneumonia, unspecified organism (5) Anemia Code(s): D64.9 - ANEMIA, UNSPECIFIED (6) Septic shock Code(s): A41.9 - SEPSIS, UNSPECIFIED ORGANISM; R65.21 - SEVERE SEPSIS WITH SEPTIC SHOCK Assessment/Plan Persistently elevated direct bili while transaminases and ALP have normalized. Bilirubin should begin to trend down by now. MRI/MRCP todays labs Stool for hemoccult x 3 Hematology follow up Discussed with the patient.
[2017-06-30] MEDS ORDERED: PT OWN MED DRAWER 7, Y5N ONE ×2 (09:47→17:57)
[2017-06-30] MEDS: PANTOPRAZOLE 40 MG TABLET (FP) PO SCH ×2 (09:52→21:12)
[2017-06-30] MEDS: HEPARIN NA (PORCINE) 5,000 UNITS/ML 1ML VIAL SQ SCH (09:53)
[2017-06-30] MEDS ORDERED: FUROSEMIDE 20 MG TABLET (FP) PO ONE ×2 (10:53→21:23)
--- NOTE | 2017-06-30 10:54 | PN ---
Physical Exam: SUBJECTIVE: Patient seen and examined, denies chest pain. OBJECTIVE: shortness of breath at rest, will order PO lasix 20mg x1 now + bilateral lower lobe crackles, +2 edema on lower ext, edema on bilateral hands hmg/hct 6.5/20, 2 unit of prbc, may need lasix after 1st unit to avoid fluid overload reported by primary RN that pt had episode of gross hematuria, will stop heparin and consult urology 1700: pt transfused 1 unit of prbc, cbc now to monitor response, if hmg <8, transfuse 2nd unit (on hold) Please give Lasix 20mg PO x 1 prior to 2nd unit. Vital Signs Period Temp Pulse Resp BP Sys/Puentes Pulse Ox Last 24 Hr 97.2 F-98.8 F 97-108 20-20 99-106/51-61 94 GENERAL: The patient is awake, alert, and fully oriented, in mild respiratory distress. HEAD: Normal with no signs of trauma. EYES: PERRL, extraocular movements intact, sclera anicteric, conjunctiva clear. No ptosis. ENT: Ears normal, nares patent, oropharynx clear without exudates, moist mucous membranes. NECK: Trachea midline, full range of motion, supple. LUNGS: fine crackles at bilateral bases, shortness of breath at rest, on 5 liters of nasal cannula HEART: Regular rate and rhythm, S1, S2 without murmur, rub or gallop. ABDOMEN: soft, nontender, mildly distended, +bowel sounds EXTREMITIES: +2 bilateral lower ext edema, bilateral hand edema NEUROLOGICAL: Normal speech, gait not observed. PSYCH: Normal mood, normal affect. SKIN: Warm, dry, normal turgor, no rashes or lesions noted Laboratory Results - last 24 hr 06/29/17 06/30/17 06/30/17 13:15 06:00 06:00 WBC 2.7 L 2.2 L RBC 2.53 L 2.19 L Hgb 7.4 L 6.5 L* D Hct 23.1 L 20.0 L MCV 91.3 91.0 MCH 29.1 29.5 MCHC 31.9 L 32.4 RDW 17.2 H 17.5 H Plt Count 196 177 MPV 7.7 8.1 Neutrophils % 91.8 H 89.3 H Lymphocytes % 6.5 L 9.6 D Monocytes % 0.8 L 0.6 L Eosinophils % 0.5 0.3 Basophils % 0.4 0.2 Sodium 140 Potassium 3.8 Chloride 106 Carbon Dioxide 27 Anion Gap 7 L BUN 15 Creatinine 0.8 Creat Clearance w eGFR > 60 Random Glucose 123 H Calcium 7.3 L Magnesium 2.1 Total Bilirubin 2.6 H D Direct Bilirubin 1.9 H D AST 25 ALT 49 Alkaline Phosphatase 70 Total Protein 4.5 L Albumin 1.4 L Blood Type Antibody Screen Crossmatch 06/30/17 08:40 WBC RBC Hgb Hct MCV MCH MCHC RDW Plt Count MPV Neutrophils % Lymphocytes % Monocytes % Eosinophils % Basophils % Sodium Potassium Chloride Carbon Dioxide Anion Gap BUN Creatinine Creat Clearance w eGFR Random Glucose Calcium Magnesium Total Bilirubin Direct Bilirubin AST ALT Alkaline Phosphatase Total Protein Albumin Blood Type A POSITIVE Antibody Screen Negative Crossmatch See Detail Active Medications Generic Name Dose Route Start Last Admin Trade Name Freq PRN Reason Stop Dose Admin Albuterol/Ipratropium 1 amp 06/28/17 18:00 06/30/17 06:31 Duoneb - NEB 1 amp QIDR JIHAN Administration Furosemide 20 mg 06/30/17 10:53 Lasix - PO 06/30/17 10:54 ONCE ONE Heparin Sodium (Porcine) 5,000 unit 06/28/17 22:00 06/30/17 09:53 Heparin - SQ 5,000 unit BID JIHAN Administration Azithromycin 500 mg/ Dextrose 250 mls @ 250 mls/hr 06/29/17 10:00 06/29/17 10 :14 IVPB 250 mls/hr DAILY JIHAN Administration Piperacillin/Tazobactam/Dextrose 50 mls @ 100 mls/hr 06/28/17 18:00 06/30/17 09:52 Zosyn 3.375gm Ivpb (Premix) IVPB 100 mls/hr Q8H-IV JIHAN Administration Protocol Pantoprazole Sodium 40 mg 06/28/17 22:00 06/30/17 09:52 Protonix - PO 40 mg BID JIHAN Administration ASSESSMENT/PLAN: Patient is an 82 year old male with a significant past medical history of anemia , hairy cell leukemia, colon polyp and hypertension. He presented to the ED on 06/24/2017 with general malaise, lethargy and cough. According to the ED notes, pt was seen by his PCP but his symptoms progressively became worse. Pt also reports discolored urine last week, states it was bloody. He is s/p ICU transfer for hypotension and lethargy. On my exam, patient is awake, alert, he denies shortness of breath but he clearly is using accessory muscles. He denies cough, refusing the venti mask. Patient denies abdominal pain, diarrhea, or chest pain. ID: Septic shock secondary to pneumonia, resolved Pneumonia in an immunosupressed pt, acute ANC calculated @ 2207 Continues to have SOB at rest, pneumonia under treatment with Zosyn and Azithromycin Blood pressure low stable at this time Low dose Lasix 20mg x 1 now for shortness of breath Duonebs scheduled QID Incentive spirometer On 5 liters of nasal cannula with sats in the mid 90s at rest GI: Elevated AST/ALT, resolved Monitor trend Bili remains elevated but unchanged hepatitis panel : Hematuria stop heparin, UA now Monitor intake and output Monitor CBC after blood transfusion Urology consult Hematology: Anemia, acute on chronic Anemia with fatigue and shortness of breath with generalized weakness Likely secondary to leukemia hmg/hct now low at 6.5/20, transfuse 2 units now, may need lasix in between transfusions Stool for hemoccult x 3 as per GI Hematology following Cardiology: Hypertension, now with hypotension Echo shows LV systolic is moderate to severely reduced LA mildly dilated, mild MR, mod TR, RV systolic p ressure elevated, moderate aortic scheloris, trivial pericardial effusion On home Propanalol which is on hold for hypotension Cardiology consulted Oncology: Hairy cell leukemia, chronic Oncology following F.E.N. Fluids: monitor off IVF Electrolytes: corrected calcium 9.3, phos 2.3: monitor Nutrition: regular diet Prophyalxis: DVT: d/c heparin for gross hematuria, scds stockings GI: Protonix Dispostion: full code. Visit type - Emergency Visit Emergency Visit: Yes ED Registration Date: 06/24/17 Care time: The patient presented to the Emergency Department on the above date and was hospitalized for further evaluation of their emergent condition. - New Patient This patient is new to me today: No - Critical Care Critical Care patient: No - Discharge Referral Referred to [facility] Med P.C.: No
--- NOTE | 2017-06-30 13:04 | PN ---
Progress Note, Physician History of Present Illness: Awake, alert OOB in chair Receiving transfusion of PRBCs No complaints of dyspnea/cough No c/o fever/ chills Afebrile WBC 2.2 89%N ANC 1.9 Blood c/s no growth Repeat CXR congestive changes bilaterally L >R - Current Medication List Current Medications: Active Medications Albuterol/Ipratropium (Duoneb -) 1 amp NEB QIDR [facility] Last Admin: 06/30/17 11:27 Dose: 1 amp Heparin Sodium (Porcine) (Heparin -) 5,000 unit SQ BID [facility] Last Admin: 06/30/17 09:53 Dose: 5,000 unit Azithromycin 500 mg/ Dextrose 250 mls @ 250 mls/hr IVPB DAILY [facility] Last Admin: 06/29/17 10:14 Dose: 250 mls/hr Piperacillin/Tazobactam/Dextrose (Zosyn 3.375gm Ivpb (Premix)) 50 mls @ 100 mls /hr IVPB Q8H-IV JIHAN PRN Reason: Protocol Last Admin: 06/30/17 09:52 Dose: 100 mls/hr Pantoprazole Sodium (Protonix -) 40 mg PO BID [facility] Last Admin: 06/30/17 09:52 Dose: 40 mg - Objective Vital Signs: Vital Signs Temperature 98 F 06/30/17 12:00 Pulse Rate 98 H 06/30/17 12:00 Respiratory Rate 20 06/30/17 12:00 Blood Pressure 110/57 06/30/17 12:00 O2 Sat by Pulse Oximetry (%) 94 L 06/29/17 21:00 Labs: CBC, BMP 06/30/17 06:00 06/30/17 06:00 INR, PTT INR 1.36 (0.82-1.09) H 06/29/17 06:00 Assessment/Plan Extensive L sided pneumonia clinically improved Sepsis secondary to pneumonia HCL/MDS/ chronic pancytopenia Elevated LFTs- resolved Cultures no growth. Continue empiric zithromax/ zosyn
--- NOTE | 2017-06-30 13:30 | CON.CARD ---
Consult Consult Specialty:: Cardiology Reason for Consultation:: low ef /abnormal echo - History of Present Illness History of Present Illness: This is an 82 year old male with a past medical history of anemia, hairy cell leukemia, colon polyp, HTN who presented to the ED with general malaise, lethargy and cough. He was seen by his PCP one week ago who felt it was viral but when his symptoms became worse he went to his PCP again today who noted low oxygen sat and sent pt to the ED. Pt also reports discolored urine last week, states it was red and so it must be blood. Upon exam pt remains lethargic, mild cough. Pt states cough is productive of yellow phlegm. pt denies abdominal pain , diarrhea, vomiting, constipation, change in color or consistency of stool. - Past Medical History Cardio/Vascular: Yes: HTN - Alcohol/Substance Use Hx Alcohol Use: No - Smoking History Smoking history: Former smoker Have you smoked in the past 12 months: No Aproximately how many cigarettes per day: 0 If you are a former smoker, when did you quit?: 64 YEARS Home Medications - Allergies Allergies/Adverse Reactions: Allergies Allergy/AdvReac Type Severity Reaction Status Date / Time No Known Allergies Allergy Verified 06/24/17 17:30 - Home Medications Home Medications: Ambulatory Orders Propranolol HCl [Inderal] 160 mg PO DAILY 12/31/12 Terazosin HCl [Hytrin] 5 mg PO HS 12/31/12 Review of Systems - Review of Systems Constitutional: reports: No Symptoms Eyes: reports: No Symptoms HENT: reports: No Symptoms Neck: reports: No Symptoms Cardiovascular: reports: No Symptoms Gastrointestinal: reports: No Symptoms Genitourinary: reports: No Symptoms Breasts: reports: No Symptoms Reported Musculoskeletal: reports: No Symptoms Integumentary: reports: No Symptoms Neurological: reports: No Symptoms Endocrine: reports: No Symptoms Hematology/Lymphatic: reports: No Symptoms Psychiatric: reports: No Symptoms Vital Signs: Vital Signs Temperature 98 F 06/30/17 12:00 Pulse Rate 98 H 06/30/17 12:00 Respiratory Rate 20 06/30/17 12:00 Blood Pressure 110/57 06/30/17 12:00 O2 Sat by Pulse Oximetry (%) 94 L 06/29/17 21:00 Constitutional: Yes: Well Nourished, No Distress, Calm Eyes: Yes: WNL, Conjunctiva Clear, EOM Intact HENT: Yes: WNL, Atraumatic, Normocephalic Neck: Yes: WNL, Supple, Trachea Midline Respiratory: Yes: WNL, Regular, CTA Bilaterally Gastrointestinal: Yes: WNL, Normal Bowel Sounds Renal/: Yes: WNL Cardiovascular: Yes: WNL, Regular Rate and Rhythm Musculoskeletal: Yes: WNL Extremities: Yes: WNL Edema: Yes Integumentary: Yes: WNL Neurological: Yes: WNL, Alert, Oriented ...Motor Strength: WNL Psychiatric: Yes: WNL, Alert, Oriented - Other Data Labs, Other Data: CBC, BMP 06/30/17 06:00 06/30/17 06:00 INR, PTT INR 1.36 (0.82-1.09) H 06/29/17 06:00 Imaging - Results Chest X-ray: Image Reviewed (increased markings) EKG: Image Reviewed (nsr wnl) Problem List - Problems (1) Anemia Code(s): D64.9 - ANEMIA, UNSPECIFIED (2) 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 DUCT (3) Hepatitis Code(s): K75.9 - INFLAMMATORY LIVER DISEASE, UNSPECIFIED (4) Pneumonia Code(s): J18.9 - PNEUMONIA, UNSPECIFIED ORGANISM Qualifiers: Pneumonia type: due to unspecified organism Laterality: left Lung location: unspecified part of lung Qualified Code(s): J18.9 - Pneumonia, unspecified organism (5) Septic shock Code(s): A41.9 - SEPSIS, UNSPECIFIED ORGANISM; R65.21 - SEVERE SEPSIS WITH SEPTIC SHOCK (6) Transaminitis Code(s): R74.0 - NONSPEC ELEV OF LEVELS OF TRANSAMNS & LACTIC ACID DEHYDRGNSE Assessment/Plan anemia, hairy cell leukemia, colon polyp, HTN edema r/o chf PHT mildly reduced ef cholecystatis Plan bnp consider prbc transfusion would benefit from MIBI st when anemia corrected will f/u
[2017-06-30] MEDS: AZITHROMYCIN IVPB 500 MG in DEXTROSE 5%-WATER - 250 ML IVPB SCH (15:57)
[2017-06-30 19:18] LABS: BASOPHIL 0.2 % (0-2.0); EOSINOPHIL 0.5 % (0-4.5); MCH 29.2 pg (25.7-33.7); MCHC 32.5 g/dl (32.0-35.9); MEAN CELL VOLUME 89.8 fl (80-96); MEAN PLT VOLUME 8.3 fl (7.5-11.1); NEUTROPHILS 89.6 % (42.8-82.8); PLATELET COUNT 190 K/MM3 (134-434); RDW 17.2 % (11.9-15.9); WHITE BLOOD COUNT 2.2 K/mm3 (4.0-10.0)
[2017-07-01 02:03] LABS: URINE APPEARANCE CLEAR; URINE BILIRUBIN NEGATIVE (NEGATIVE); URINE BLOOD NEGATIVE (NEGATIVE); URINE COLOR AMBER; URINE GLUCOSE (UA) NEGATIVE (NEGATIVE); URINE KETONE NEGATIVE (NEGATIVE); URINE NITRITE NEGATIVE (NEGATIVE); URINE PROTEIN NEGATIVE (NEGATIVE)
[2017-07-01] MEDS: PIPERACILLIN/TAZOB 3.375 GM 50 ML IVPB SCH ×3 (03:08→17:26)
[2017-07-01] MEDS: ALBUTEROL SO4 2.5/IPRATROPIUM 0.5 INH SOL 3 ML VIAL.NEB. NEB SCH ×3 (06:20→17:30)
[2017-07-01 08:06] LABS: BASOPHIL 0.2 % (0-2.0); EOSINOPHIL 0.6 % (0-4.5); MCH 29.1 pg (25.7-33.7); MCHC 33.2 g/dl (32.0-35.9); MEAN CELL VOLUME 87.6 fl (80-96); MEAN PLT VOLUME 7.7 fl (7.5-11.1); NEUTROPHILS 89.7 % (42.8-82.8); PLATELET COUNT 177 K/MM3 (134-434); RDW 18.7 % (11.9-15.9); WHITE BLOOD COUNT 2.4 K/mm3 (4.0-10.0)
[2017-07-01 08:18] LABS: ALBUMIN 1.5 g/dl (3.4-5.0); ALK PHOS 66 U/L (45-117); ANION GAP 8 (8-16); BILIRUBIN,TOTAL 2.8 mg/dL (0.2-1.0); CALCIUM 7.2 mg/dL (8.5-10.1); CO2 28 mmol/L (21-32); CREATININE 0.8 mg/dL (0.7-1.3); GLUCOSE,RANDOM 111 mg/dL (74-106); SGOT/AST 26 U/L (15-37); SGPT/ALT 45 U/L (12-78); TOT PROT 4.6 g/dl (6.4-8.2)
[2017-07-01] MEDS ORDERED: PT OWN MED DRAWER 7, Y5N ONE ×2 (09:37→16:59)
--- NOTE | 2017-07-01 09:48 | PN ---
Progress Note, Physician History of Present Illness: Events noted. Offers no complaints. MRI/MRCP done, formal read pending. Hepatic panel improved. No overt signs of GI blood loss ?due to underlying hematologic condition. - Current Medication List Current Medications: Active Medications Albuterol/Ipratropium (Duoneb -) 1 amp NEB QIDR [facility] Last Admin: 07/01/17 06:20 Dose: 1 amp Azithromycin 500 mg/ Dextrose 250 mls @ 250 mls/hr IVPB DAILY [facility] Last Admin: 06/30/17 15:57 Dose: 250 mls/hr Piperacillin/Tazobactam/Dextrose (Zosyn 3.375gm Ivpb (Premix)) 50 mls @ 100 mls /hr IVPB Q8H-IV JIHAN PRN Reason: Protocol Last Admin: 07/01/17 03:08 Dose: 100 mls/hr Pantoprazole Sodium (Protonix -) 40 mg PO BID [facility] Last Admin: 06/30/17 21:12 Dose: 40 mg - Objective Vital Signs: Vital Signs Temperature 98 F 07/01/17 03:02 Pulse Rate 95 H 07/01/17 03:02 Respiratory Rate 20 07/01/17 03:02 Blood Pressure 107/59 07/01/17 03:02 O2 Sat by Pulse Oximetry (%) 94 L 06/30/17 20:13 Eyes: Yes: Conjunctiva Clear Gastrointestinal: Yes: Soft. No: Melena, Rectal Bleeding, Tenderness, Vomiting Neurological: Yes: Alert, Oriented Labs: CBC, BMP 07/01/17 06:00 07/01/17 06:00 INR, PTT INR 1.36 (0.82-1.09) H 06/29/17 06:00 CBCD WBC 2.4 K/mm3 (4.0-10.0) L 07/01/17 06:00 RBC 2.70 M/mm3 (4.00-5.60) L 07/01/17 06:00 Hgb 7.8 GM/dL (11.7-16.9) L D 07/01/17 06:00 Hct 23.6 % (35.4-49) L 07/01/17 06:00 MCV 87.6 fl (80-96) 07/01/17 06:00 MCHC 33.2 g/dl (32.0-35.9) 07/01/17 06:00 RDW 18.7 % (11.9-15.9) H 07/01/17 06:00 Plt Count 177 K/MM3 (134-434) 07/01/17 06:00 MPV 7.7 fl (7.5-11.1) 07/01/17 06:00 CMP Sodium 139 mmol/L (136-145) 07/01/17 06:00 Potassium 3.8 mmol/L (3.5-5.1) 07/01/17 06:00 Chloride 103 mmol/L (98-107) 07/01/17 06:00 Carbon Dioxide 28 mmol/L (21-32) 07/01/17 06:00 Anion Gap 8 (8-16) 07/01/17 06:00 BUN 14 mg/dL (7-18) 07/01/17 06:00 Creatinine 0.8 mg/dL (0.7-1.3) 07/01/17 06:00 Creat Clearance w eGFR > 60 (>60) 07/01/17 06:00 Calcium 7.2 mg/dL (8.5-10.1) L 07/01/17 06:00 Total Bilirubin 2.8 mg/dL (0.2-1.0) H 07/01/17 06:00 AST 26 U/L (15-37) 07/01/17 06:00 ALT 45 U/L (12-78) 07/01/17 06:00 Alkaline Phosphatase 66 U/L (45-117) 07/01/17 06:00 Total Protein 4.6 g/dl (6.4-8.2) L 07/01/17 06:00 Albumin 1.5 g/dl (3.4-5.0) L 07/01/17 06:00 - ....Imaging MRI: Pending, Image Reviewed Problem List - Problems (1) Transaminitis Code(s): R74.0 - NONSPEC ELEV OF LEVELS OF TRANSAMNS & LACTIC ACID DEHYDRGNSE (2) Hepatitis Code(s): K75.9 - INFLAMMATORY LIVER DISEASE, UNSPECIFIED (3) 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 DUCT (4) Pneumonia Code(s): J18.9 - PNEUMONIA, UNSPECIFIED ORGANISM Qualifiers: Pneumonia type: due to unspecified organism Laterality: left Lung location: unspecified part of lung Qualified Code(s): J18.9 - Pneumonia, unspecified organism (5) Anemia Code(s): D64.9 - ANEMIA, UNSPECIFIED (6) Septic shock Code(s): A41.9 - SEPSIS, UNSPECIFIED ORGANISM; R65.21 - SEVERE SEPSIS WITH SEPTIC SHOCK Assessment/Plan Persistently elevated direct bili while transaminases and ALP have normalized. Bilirubin is trending down MRI/MRCP result todays labs Stool for hemoccult x 3 Hematology follow up Discussed with the patient.
[2017-07-01] MEDS: PANTOPRAZOLE 40 MG TABLET (FP) PO SCH ×2 (10:00→21:06)
[2017-07-01 10:30] LABS: URINE LEUK ESTERASE Negative (NEGATIVE)
[2017-07-01] MEDS: AZITHROMYCIN IVPB 500 MG in DEXTROSE 5%-WATER - 250 ML IVPB SCH (10:31)
--- NOTE | 2017-07-01 13:27 | PN ---
Progress Note, Physician History of Present Illness: This is an 82 year old male with a past medical history of anemia, hairy cell leukemia, colon polyp, HTN who presented to the ED with general malaise, lethargy and cough. He was seen by his PCP one week ago who felt it was viral but when his symptoms became worse he went to his PCP again today who noted low oxygen sat and sent pt to the ED. Pt also reports discolored urine last week, states it was red and so it must be blood. Upon exam pt remains lethargic, mild cough. Pt states cough is productive of yellow phlegm. pt denies abdominal pain , diarrhea, vomiting, constipation, change in color or consistency of stool. - Current Medication List Current Medications: Active Medications Albuterol/Ipratropium (Duoneb -) 1 amp NEB QIDR [facility] Last Admin: 07/01/17 11:10 Dose: 1 amp Azithromycin 500 mg/ Dextrose 250 mls @ 250 mls/hr IVPB DAILY [facility] Last Admin: 07/01/17 10:31 Dose: 250 mls/hr Piperacillin/Tazobactam/Dextrose (Zosyn 3.375gm Ivpb (Premix)) 50 mls @ 100 mls /hr IVPB Q8H-IV JIHAN PRN Reason: Protocol Last Admin: 07/01/17 09:57 Dose: 100 mls/hr Pantoprazole Sodium (Protonix -) 40 mg PO BID [facility] Last Admin: 07/01/17 10:00 Dose: 40 mg - Objective Vital Signs: Vital Signs Temperature 98.2 F 07/01/17 10:00 Pulse Rate 94 H 07/01/17 11:10 Respiratory Rate 20 07/01/17 10:00 Blood Pressure 114/61 07/01/17 10:00 O2 Sat by Pulse Oximetry (%) 96 07/01/17 11:10 Eyes: Yes: WNL, Conjunctiva Clear, EOM Intact HENT: Yes: WNL, Atraumatic, Normocephalic Neck: Yes: WNL, Supple, Trachea Midline Cardiovascular: Yes: WNL, Regular Rate and Rhythm Respiratory: Yes: WNL, Regular, CTA Bilaterally Gastrointestinal: Yes: WNL, Normal Bowel Sounds Genitourinary: Yes: WNL Musculoskeletal: Yes: WNL Extremities: Yes: WNL Edema: Yes Integumentary: Yes: WNL Neurological: Yes: WNL, Alert, Oriented ...Motor Strength: WNL Psychiatric: Yes: WNL Labs: CBC, BMP 07/01/17 06:00 07/01/17 06:00 INR, PTT INR 1.36 (0.82-1.09) H 06/29/17 06:00 Problem List - Problems (1) Anemia Code(s): D64.9 - ANEMIA, UNSPECIFIED (2) 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 DUCT (3) Hepatitis Code(s): K75.9 - INFLAMMATORY LIVER DISEASE, UNSPECIFIED (4) Pneumonia Code(s): J18.9 - PNEUMONIA, UNSPECIFIED ORGANISM Qualifiers: Pneumonia type: due to unspecified organism Laterality: left Lung location: unspecified part of lung Qualified Code(s): J18.9 - Pneumonia, unspecified organism (5) Septic shock Code(s): A41.9 - SEPSIS, UNSPECIFIED ORGANISM; R65.21 - SEVERE SEPSIS WITH SEPTIC SHOCK (6) Transaminitis Code(s): R74.0 - NONSPEC ELEV OF LEVELS OF TRANSAMNS & LACTIC ACID DEHYDRGNSE Assessment/Plan anemia, hairy cell leukemia, colon polyp, HTN edema r/o chf PHT mildly reduced ef cholecystatis Plan bnp consider prbc transfusion would benefit from MIBI st when anemia corrected will f/u
--- NOTE | 2017-07-01 15:52 | PN ---
Physical Exam: SUBJECTIVE: Patient seen and examined at the bedside. States breathing is slightly better today. OBJECTIVE: Titrate oxygen down as tolerated Spoke to and daughter regarding POC, medications. Urine color was radha on UA, not hematuria, will repeat UA He is s/p 2 units of prbc yesterday, hmg/hct now 7.8/23.6, repeat CBC now Vital Signs Period Temp Pulse Resp BP Sys/Puentes Pulse Ox Last 24 Hr 98 F-98.5 F 94-105 20-20 105-114/54-70 94-96 GENERAL: The patient is awake, alert, and fully oriented HEAD: Normal with no signs of trauma. EYES: PERRL, extraocular movements intact, sclera anicteric, conjunctiva clear. No ptosis. ENT: Ears normal, nares patent, oropharynx clear without exudates, moist mucous membranes. NECK: Trachea midline, full range of motion, supple. LUNGS: fine crackles at bilateral bases HEART: Regular rate and rhythm, S1, S2 without murmur, rub or gallop. ABDOMEN: soft, nontender, mildly distended, +bowel sounds EXTREMITIES: +1 bilateral lower ext edema, bilateral hand edema NEUROLOGICAL: Normal speech, gait not observed. PSYCH: Normal mood, normal affect. SKIN: Warm, dry, normal turgor, no rashes or lesions noted Laboratory Results - last 24 hr 06/30/17 06/30/17 07/01/17 08:40 18:20 01:30 WBC 2.2 L RBC 2.38 L Hgb 7.0 L Hct 21.4 L MCV 89.8 MCH 29.2 MCHC 32.5 RDW 17.2 H Plt Count 190 MPV 8.3 Neutrophils % 89.6 H Lymphocytes % 9.0 Monocytes % 0.7 L Eosinophils % 0.5 Basophils % 0.2 Sodium Potassium Chloride Carbon Dioxide Anion Gap BUN Creatinine Creat Clearance w eGFR Random Glucose Calcium Total Bilirubin AST ALT Alkaline Phosphatase Total Protein Albumin Urine Color Radha Urine Appearance Clear Urine pH 5.0 Ur Specific [place] 1.018 Urine Protein Negative Urine Glucose (UA) Negative Urine Ketones Negative Urine Blood Negative Urine Nitrite Negative Urine Bilirubin Negative Urine Urobilinogen 2.0 Ur Leukocyte Esterase Negative Blood Type A POSITIVE Antibody Screen Negative Crossmatch See Detail 07/01/17 07/01/17 06:00 06:00 WBC 2.4 L RBC 2.70 L Hgb 7.8 L D Hct 23.6 L MCV 87.6 MCH 29.1 MCHC 33.2 RDW 18.7 H Plt Count 177 MPV 7.7 Neutrophils % 89.7 H Lymphocytes % 9.0 Monocytes % 0.5 L Eosinophils % 0.6 Basophils % 0.2 Sodium 139 Potassium 3.8 Chloride 103 Carbon Dioxide 28 Anion Gap 8 BUN 14 Creatinine 0.8 Creat Clearance w eGFR > 60 Random Glucose 111 H Calcium 7.2 L Total Bilirubin 2.8 H AST 26 ALT 45 Alkaline Phosphatase 66 Total Protein 4.6 L Albumin 1.5 L Urine Color Urine Appearance Urine pH Ur Specific [place] Urine Protein Urine Glucose (UA) Urine Ketones Urine Blood Urine Nitrite Urine Bilirubin Urine Urobilinogen Ur Leukocyte Esterase Blood Type Antibody Screen Crossmatch Active Medications Generic Name Dose Route Start Last Admin Trade Name Freq PRN Reason Stop Dose Admin Albuterol/Ipratropium 1 amp 06/28/17 18:00 07/01/17 11:10 Duoneb - NEB 1 amp QIDR JIHAN Administration Azithromycin 500 mg/ Dextrose 250 mls @ 250 mls/hr 06/29/17 10:00 07/01/17 10 :31 IVPB 250 mls/hr DAILY JIHAN Administration Piperacillin/Tazobactam/Dextrose 50 mls @ 100 mls/hr 06/28/17 18:00 07/01/17 09:57 Zosyn 3.375gm Ivpb (Premix) IVPB 100 mls/hr Q8H-IV JIHAN Administration Protocol Pantoprazole Sodium 40 mg 06/28/17 22:00 07/01/17 10:00 Protonix - PO 40 mg BID JIHAN Administration ASSESSMENT/PLAN: Patient is an 82 year old male with a significant past medical history of anemia , hairy cell leukemia, colon polyp and hypertension. He presented to the ED on 06/24/2017 with general malaise, lethargy and cough. According to the ED notes, pt was seen by his PCP but his symptoms progressively became worse. Pt also reports discolored urine last week, states it was bloody. He is s/p ICU transfer for septic shock. ID: Septic shock secondary to pneumonia, resolved Pneumonia in an immunosupressed pt, acute ANC calculated @ 2400 Continues to have SOB at rest with improvement, pneumonia under treatment with Zosyn and Azithromycin Blood pressure low stable at this time Duonebs scheduled QID Incentive spirometer On 5 liters of nasal cannula with sats in the mid 90s at rest, titrate off oxygen as tolerated GI: Elevated AST/ALT, resolved Monitor trend Bili remains elevated hepatitis panel : Hematuria rule out UA does not show blood, repeat UA UC ordered Monitor CBC after blood transfusion Urology consult Hematology: Anemia, acute on chronic Anemia with fatigue and shortness of breath with generalized weakness Likely secondary to leukemia S/p 2 units of prbc, hmg/hct now 7.8/23.6 Repeat cbc now Cardiology: Hypertension, with episodes of hypotension Echo shows LV systolic is moderate to severely reduced LA mildly dilated, mild MR, mod TR, RV systolic p ressure elevated, moderate aortic scheloris, trivial pericardial effusion On home Propanalol which is on hold for hypotension Cardiology following Oncology: Hairy cell leukemia, chronic Oncology following F.E.N. Fluids: monitor off IVF Electrolytes: corrected calcium 9.3, phos 2.3: monitor Nutrition: regular diet Prophyalxis: DVT: d/c heparin chronic anemia, scds stockings GI: Protonix BID Dispostion: full code.
--- NOTE | 2017-07-01 16:10 | CONSULT ---
Consult - text type - Consultation Consultation Note: 82 yo male w gross hematuria currently voiding spontaneously states had hematuria at home and prior to anticoagulation abd soft bladder non distended Cr 0.8 renal sono nl Will require cystoscopy as opd Cont voiding spontaneously discussed w pt and sister
[2017-07-01 17:10] LABS: URINE APPEARANCE SLCLOUDY; URINE BILIRUBIN NEGATIVE (NEGATIVE); URINE BLOOD NEGATIVE (NEGATIVE); URINE COLOR AMBER; URINE GLUCOSE (UA) NEGATIVE (NEGATIVE); URINE KETONE NEGATIVE (NEGATIVE); URINE NITRITE NEGATIVE (NEGATIVE); URINE UROBILINOGEN NEGATIVE mg/dL (0.2-1.0)
[2017-07-01 17:12] LABS: URINE PROTEIN 1+ (NEGATIVE)
[2017-07-01 17:17] LABS: URINE MUCUS RARE; URINE RBC 2; URINE WBC 5
[2017-07-01 18:38] LABS: BASOPHIL 0.2 % (0-2.0); EOSINOPHIL 0.9 % (0-4.5); MCH 28.9 pg (25.7-33.7); MCHC 32.8 g/dl (32.0-35.9); MEAN CELL VOLUME 88.1 fl (80-96); MEAN PLT VOLUME 8.6 fl (7.5-11.1); PLATELET COUNT 203 K/MM3 (134-434); RDW 18.8 % (11.9-15.9); WHITE BLOOD COUNT 2.2 K/mm3 (4.0-10.0)
[2017-07-01 22:00] LABS: URINE LEUK ESTERASE Negative (NEGATIVE)
[2017-07-02] MEDS: PIPERACILLIN/TAZOB 3.375 GM 50 ML IVPB SCH ×3 (01:57→17:52)
[2017-07-02] MEDS: ALBUTEROL SO4 2.5/IPRATROPIUM 0.5 INH SOL 3 ML VIAL.NEB. NEB SCH ×4 (07:04→18:47)
[2017-07-02 07:21] LABS: BASOPHIL 0.3 % (0-2.0); EOSINOPHIL 0.7 % (0-4.5); MCH 29.3 pg (25.7-33.7); MCHC 33.5 g/dl (32.0-35.9); MEAN CELL VOLUME 87.4 fl (80-96); MEAN PLT VOLUME 8.1 fl (7.5-11.1); NEUTROPHILS 85.7 % (42.8-82.8); PLATELET COUNT 157 K/MM3 (134-434); RDW 18.3 % (11.9-15.9)
[2017-07-02 07:42] LABS: ALBUMIN 1.4 g/dl (3.4-5.0); ANION GAP 7 (8-16); CALCIUM 7.1 mg/dL (8.5-10.1); CO2 29 mmol/L (21-32); GLUCOSE,RANDOM 103 mg/dL (74-106)
[2017-07-02 07:48] LABS: ALK PHOS 57 U/L (45-117); BILIRUBIN,TOTAL 1.7 mg/dL (0.2-1.0); CREATININE 0.8 mg/dL (0.7-1.3); SGOT/AST 42 U/L (15-37); SGPT/ALT 48 U/L (12-78); TOT PROT 4.2 g/dl (6.4-8.2)
[2017-07-02 07:53] LABS: WHITE BLOOD COUNT 1.8 K/mm3 (4.0-10.0)
[2017-07-02] MEDS ORDERED: PT OWN MED DRAWER 7, Y5N ONE ×3 (08:53→23:53)
[2017-07-02] MEDS: PANTOPRAZOLE 40 MG TABLET (FP) PO SCH ×2 (09:01→21:02)
[2017-07-02] MEDS: AZITHROMYCIN IVPB 500 MG in DEXTROSE 5%-WATER - 250 ML IVPB SCH (09:02)
--- NOTE | 2017-07-02 11:29 | PN ---
Progress Note, Physician History of Present Illness: Awake, alert OOB in chair No complaints of dyspnea/cough No c/o fever/ chills Afebrile WBC 1.8 85%N ANC 1.5 Blood c/s no growth Repeat CXR congestive changes bilaterally L >R - Current Medication List Current Medications: Active Medications Albuterol/Ipratropium (Duoneb -) 1 amp NEB QIDR JIHAN Last Admin: 07/02/17 11:23 Dose: 1 amp Piperacillin/Tazobactam/Dextrose (Zosyn 3.375gm Ivpb (Premix)) 50 mls @ 100 mls /hr IVPB Q8H-IV JIHAN PRN Reason: Protocol Last Admin: 07/02/17 09:02 Dose: 100 mls/hr Pantoprazole Sodium (Protonix -) 40 mg PO BID [facility] Last Admin: 07/02/17 09:01 Dose: 40 mg - Objective Vital Signs: Vital Signs Temperature 98.2 F 07/02/17 09:14 Pulse Rate 100 H 07/02/17 09:14 Respiratory Rate 20 07/02/17 09:14 Blood Pressure 112/50 07/02/17 09:14 O2 Sat by Pulse Oximetry (%) 95 07/01/17 20:46 Constitutional: Yes: No Distress Eyes: Yes: Conjunctiva Clear Cardiovascular: Yes: Regular Rate and Rhythm, S1, S2 Respiratory: Yes: Other (+ crepitations at bases bilaterally R>L) Gastrointestinal: Yes: Normal Bowel Sounds, Soft. No: Tenderness Edema: LLE: 1+, RLE: 1+ Labs: CBC, BMP 07/02/17 06:00 07/02/17 06:00 INR, PTT INR 1.36 (0.82-1.09) H 06/29/17 06:00 Assessment/Plan Extensive L sided pneumonia clinically improved Sepsis secondary to pneumonia HCL/MDS/ chronic pancytopenia Elevated LFTs- resolved Cultures no growth. Day #7 IV antibiotics Switch to po next 24h
[2017-07-02 11:50] LABS: HYPOCHROMIA 1+
[2017-07-02 11:51] LABS: ANISOCYTOSIS 3+; MACROCYTOSIS FEW; MICROCYTOSIS 2+
--- NOTE | 2017-07-02 12:03 | PN ---
Progress Note (short form) - Note Progress Note: reports that breathing is improved, he is ambulating, and feels ok. BMs noted to be brown; denies gerd sxs s/p transfusion yest and h/h dec today stool guaiac not sent PE in chair, NAD Lungs - dec BS L, but improved CVS-reg S1S2 abd-soft, nt ext - bilat LE 1+ edema mild bilat UE erythema at venipunture sites, NT Imp: HCL, pna clin improving. All parameters improving, except h/h not holding despite transfusions. While there is component of marrow pathology, I am concerned re: bleeding. Recent office Hbs bout 9. Urine reportedly reddish, but u/a has not shown blood Send next bm for guaiac; cont GI protection; GI f/u Transfuse w attn to volume status; appreciate cardiology input - reduced EF?
--- NOTE | 2017-07-02 13:14 | PN ---
Progress Note, Physician History of Present Illness: This is an 82 year old male with a past medical history of anemia, hairy cell leukemia, colon polyp, HTN who presented to the ED with general malaise, lethargy and cough. He was seen by his PCP one week ago who felt it was viral but when his symptoms became worse he went to his PCP again today who noted low oxygen sat and sent pt to the ED. Pt also reports discolored urine last week, states it was red and so it must be blood. Upon exam pt remains lethargic, mild cough. Pt states cough is productive of yellow phlegm. pt denies abdominal pain , diarrhea, vomiting, constipation, change in color or consistency of stool. - Current Medication List Current Medications: Active Medications Albuterol/Ipratropium (Duoneb -) 1 amp NEB QIDR [facility] Last Admin: 07/02/17 11:23 Dose: 1 amp Piperacillin/Tazobactam/Dextrose (Zosyn 3.375gm Ivpb (Premix)) 50 mls @ 100 mls /hr IVPB Q8H-IV JIHAN PRN Reason: Protocol Last Admin: 07/02/17 09:02 Dose: 100 mls/hr Pantoprazole Sodium (Protonix -) 40 mg PO BID [facility] Last Admin: 07/02/17 09:01 Dose: 40 mg - Objective Vital Signs: Vital Signs Temperature 98.2 F 07/02/17 09:14 Pulse Rate 100 H 07/02/17 09:14 Respiratory Rate 20 07/02/17 09:14 Blood Pressure 112/50 07/02/17 09:14 O2 Sat by Pulse Oximetry (%) 95 07/01/17 20:46 Eyes: Yes: WNL, Conjunctiva Clear, EOM Intact HENT: Yes: WNL, Atraumatic, Normocephalic Neck: Yes: WNL, Supple, Trachea Midline Cardiovascular: Yes: WNL, Regular Rate and Rhythm Respiratory: Yes: WNL, Regular, CTA Bilaterally Gastrointestinal: Yes: WNL, Normal Bowel Sounds Genitourinary: Yes: WNL Musculoskeletal: Yes: WNL Extremities: Yes: WNL Edema: Yes Integumentary: Yes: WNL Neurological: Yes: WNL, Alert, Oriented ...Motor Strength: WNL Psychiatric: Yes: WNL Labs: CBC, BMP 07/02/17 06:00 07/02/17 06:00 INR, PTT INR 1.36 (0.82-1.09) H 06/29/17 06:00 Problem List - Problems (1) Anemia Code(s): D64.9 - ANEMIA, UNSPECIFIED (2) 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 DUCT (3) Hepatitis Code(s): K75.9 - INFLAMMATORY LIVER DISEASE, UNSPECIFIED (4) Pneumonia Code(s): J18.9 - PNEUMONIA, UNSPECIFIED ORGANISM Qualifiers: Pneumonia type: due to unspecified organism Laterality: left Lung location: unspecified part of lung Qualified Code(s): J18.9 - Pneumonia, unspecified organism (5) Septic shock Code(s): A41.9 - SEPSIS, UNSPECIFIED ORGANISM; R65.21 - SEVERE SEPSIS WITH SEPTIC SHOCK (6) Transaminitis Code(s): R74.0 - NONSPEC ELEV OF LEVELS OF TRANSAMNS & LACTIC ACID DEHYDRGNSE Assessment/Plan anemia, hairy cell leukemia, colon polyp, HTN edema r/o chf PHT mildly reduced ef cholecystatis Plan bnp f/u hct post prbc transfusion would benefit from MIBI st when anemia corrected will f/u
--- NOTE | 2017-07-02 15:36 | PN ---
Progress Note, Physician History of Present Illness: Comfortable. No events. Reports no melena, hematochezia. - Current Medication List Current Medications: Active Medications Albuterol/Ipratropium (Duoneb -) 1 amp NEB [facility]IDR [facility] Last Admin: 07/02/17 11:23 Dose: 1 amp Piperacillin/Tazobactam/Dextrose (Zosyn 3.375gm Ivpb (Premix)) 50 mls @ 100 mls /hr IVPB Q8H-IV JIHAN PRN Reason: Protocol Last Admin: 07/02/17 09:02 Dose: 100 mls/hr Pantoprazole Sodium (Protonix -) 40 mg PO BID [facility] Last Admin: 07/02/17 09:01 Dose: 40 mg - Objective Vital Signs: Vital Signs Temperature 97.9 F 07/02/17 13:40 Pulse Rate 108 H 07/02/17 13:40 Respiratory Rate 18 07/02/17 13:40 Blood Pressure 106/63 07/02/17 13:40 O2 Sat by Pulse Oximetry (%) 95 07/02/17 09:00 Constitutional: Yes: Well Nourished, No Distress, Calm Eyes: Yes: Conjunctiva Clear Gastrointestinal: Yes: Soft. No: Melena, Rectal Bleeding, Tenderness, Epigastrium, Tenderness, Rebound, Vomiting Neurological: Yes: Alert, Oriented Labs: CBC, BMP 07/02/17 06:00 07/02/17 06:00 INR, PTT INR 1.36 (0.82-1.09) H 06/29/17 06:00 CBCD WBC 1.8 K/mm3 (4.0-10.0) L* 07/02/17 06:00 RBC 2.35 M/mm3 (4.00-5.60) L 07/02/17 06:00 Hgb 6.9 GM/dL (11.7-16.9) L* 07/02/17 06:00 Hct 20.5 % (35.4-49) L 07/02/17 06:00 MCV 87.4 fl (80-96) 07/02/17 06:00 MCHC 33.5 g/dl (32.0-35.9) 07/02/17 06:00 RDW 18.3 % (11.9-15.9) H 07/02/17 06:00 Plt Count 157 K/MM3 (134-434) D 07/02/17 06:00 MPV 8.1 fl (7.5-11.1) 07/02/17 06:00 CMP Sodium 140 mmol/L (136-145) 07/02/17 06:00 Potassium 3.9 mmol/L (3.5-5.1) 07/02/17 06:00 Chloride 104 mmol/L (98-107) 07/02/17 06:00 Carbon Dioxide 29 mmol/L (21-32) 07/02/17 06:00 Anion Gap 7 (8-16) L 07/02/17 06:00 BUN 12 mg/dL (7-18) 07/02/17 06:00 Creatinine 0.8 mg/dL (0.7-1.3) 07/02/17 06:00 Creat Clearance w eGFR > 60 (>60) 07/02/17 06:00 Calcium 7.1 mg/dL (8.5-10.1) L 07/02/17 06:00 Total Bilirubin 1.7 mg/dL (0.2-1.0) H D 07/02/17 06:00 AST 42 U/L (15-37) H D 07/02/17 06:00 ALT 48 U/L (12-78) 07/02/17 06:00 Alkaline Phosphatase 57 U/L (45-117) 07/02/17 06:00 Total Protein 4.2 g/dl (6.4-8.2) L 07/02/17 06:00 Albumin 1.4 g/dl (3.4-5.0) L 07/02/17 06:00 Problem List - Problems (1) Transaminitis Code(s): R74.0 - NONSPEC ELEV OF LEVELS OF TRANSAMNS & LACTIC ACID DEHYDRGNSE (2) Hepatitis Code(s): K75.9 - INFLAMMATORY LIVER DISEASE, UNSPECIFIED (3) 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 DUCT (4) Pneumonia Code(s): J18.9 - PNEUMONIA, UNSPECIFIED ORGANISM Qualifiers: Pneumonia type: due to unspecified organism Laterality: left Lung location: unspecified part of lung Qualified Code(s): J18.9 - Pneumonia, unspecified organism (5) Anemia Code(s): D64.9 - ANEMIA, UNSPECIFIED (6) Septic shock Code(s): A41.9 - SEPSIS, UNSPECIFIED ORGANISM; R65.21 - SEVERE SEPSIS WITH SEPTIC SHOCK Assessment/Plan Persistently elevated direct bili while transaminases and ALP have normalized. Bilirubin is trending down MRI/MRCP result noted Stool for hemoccult x 3 analysis pending colonoscopy 5 y ago polyps Never had EGD Hematology follow up Discussed with the patient.
--- NOTE | 2017-07-02 17:06 | PN ---
Physical Exam: SUBJECTIVE: Patient seen and examined at the bedside. Sitting in the chair, states he feels better, breathing is improving. OBJECTIVE: hmg/hct 6.9/20.5 - will get one unit of prbc now and repeat cbc Lasix 20mg after blood transfusion Vital Signs Period Temp Pulse Resp BP Sys/Puentes Pulse Ox Last 24 Hr 97.9 F-98.6 F 88-108 18-20 93-127/46-63 95-95 GENERAL: The patient is awake, alert, and fully oriented HEAD: Normal with no signs of trauma. EYES: PERRL, extraocular movements intact, sclera anicteric, conjunctiva clear. No ptosis. ENT: Ears normal, nares patent, oropharynx clear without exudates, moist mucous membranes. NECK: Trachea midline, full range of motion, supple. LUNGS: fine crackles at bilateral bases HEART: Regular rate and rhythm, S1, S2 without murmur, rub or gallop. ABDOMEN: soft, nontender, mildly distended, +bowel sounds EXTREMITIES: +1 bilateral lower ext edema, bilateral hand edema NEUROLOGICAL: Normal speech, gait not observed. PSYCH: Normal mood, normal affect. SKIN: Warm, dry, normal turgor, no rashes or lesions noted Laboratory Results - last 24 hr 06/30/17 07/01/17 07/01/17 08:40 16:00 16:45 WBC 2.2 L RBC 2.59 L Hgb 7.5 L Hct 22.9 L MCV 88.1 MCH 28.9 MCHC 32.8 RDW 18.8 H Plt Count 203 MPV 8.6 D Neutrophils % 87.0 H Lymphocytes % 11.0 D Monocytes % 0.9 L Eosinophils % 0.9 Basophils % 0.2 Hypochromia Anisocytosis Microcytosis Macrocytosis Sodium Potassium Chloride Carbon Dioxide Anion Gap BUN Creatinine Creat Clearance w eGFR Random Glucose Calcium Total Bilirubin AST ALT Alkaline Phosphatase B-Natriuretic Peptide Total Protein Albumin Urine Color Cristiana Urine Appearance Slcloudy Urine pH 5.0 Ur Specific [place] 1.027 Urine Protein 1+ H Urine Glucose (UA) Negative Urine Ketones Negative Urine Blood Negative Urine Nitrite Negative Urine Bilirubin Negative Urine Urobilinogen Negative Ur Leukocyte Esterase Negative Urine WBC (Auto) 5 Urine RBC (Auto) 2 Ur Epithelial Cells Rare Urine Mucus Rare Blood Type A POSITIVE Antibody Screen Negative Crossmatch See Detail 07/02/17 07/02/17 06:00 06:00 WBC 1.8 L* RBC 2.35 L Hgb 6.9 L* Hct 20.5 L MCV 87.4 MCH 29.3 MCHC 33.5 RDW 18.3 H Plt Count 157 D MPV 8.1 Neutrophils % 85.7 H Lymphocytes % 12.4 Monocytes % 0.9 L Eosinophils % 0.7 Basophils % 0.3 Hypochromia 1+ Anisocytosis 3+ Microcytosis 2+ Macrocytosis Few Sodium 140 Potassium 3.9 Chloride 104 Carbon Dioxide 29 Anion Gap 7 L BUN 12 Creatinine 0.8 Creat Clearance w eGFR > 60 Random Glucose 103 Calcium 7.1 L Total Bilirubin 1.7 H D AST 42 H D ALT 48 Alkaline Phosphatase 57 B-Natriuretic Peptide 5131.16 H Total Protein 4.2 L Albumin 1.4 L Urine Color Urine Appearance Urine pH Ur Specific [place] Urine Protein Urine Glucose (UA) Urine Ketones Urine Blood Urine Nitrite Urine Bilirubin Urine Urobilinogen Ur Leukocyte Esterase Urine WBC (Auto) Urine RBC (Auto) Ur Epithelial Cells Urine Mucus Blood Type Antibody Screen Crossmatch Active Medications Generic Name Dose Route Start Last Admin Trade Name Freq PRN Reason Stop Dose Admin Albuterol/Ipratropium 1 amp 06/28/17 18:00 07/02/17 11:23 Duoneb - NEB 1 amp QIDR JIHAN Administration Piperacillin/Tazobactam/Dextrose 50 mls @ 100 mls/hr 06/28/17 18:00 07/02/17 09:02 Zosyn 3.375gm Ivpb (Premix) IVPB 100 mls/hr Q8H-IV JIHAN Administration Protocol Pantoprazole Sodium 40 mg 06/28/17 22:00 07/02/17 09:01 Protonix - PO 40 mg BID JIHAN Administration ASSESSMENT/PLAN: Patient is an 82 year old male with a significant past medical history of anemia , hairy cell leukemia, colon polyp and hypertension. He presented to the ED on 06/24/2017 with general malaise, lethargy and cough. According to the ED notes, pt was seen by his PCP but his symptoms progressively became worse. Pt also reports discolored urine last week, states it was bloody. He is s/p ICU transfer for septic shock. ID: Septic shock secondary to pneumonia, resolved Pneumonia in an immunosupressed pt, acute ANC calculated @ 1741 Respiratory status improving, titrating off oxygen as tolerated Pneumonia under treatment with Zosyn Blood pressure low stable at this time Duonebs scheduled QID Incentive spirometer On 5 liters of nasal cannula with sats in the mid 90s at rest, titrate off oxygen as tolerated GI: Elevated AST/ALT, resolved Monitor trend Bili remains elevated hepatitis panel : Hematuria rule out UA does not show blood UC ordered pending Renal ultrasound reviewed Urology notes reviewed Hematology: Anemia, acute on chronic Anemia with fatigue and shortness of breath with generalized weakness Likely secondary to leukemia vs. GI source S/p 2 units of prbc, will receive another unit of prbc today CBC after blood transfusion Cardiology: Hypertension, with episodes of hypotension Echo shows LV systolic is moderate to severely reduced LA mildly dilated, mild MR, mod TR, RV systolic p ressure elevated, moderate aortic scheloris, trivial pericardial effusion On home Propanalol which is on hold for hypotension Cardiology following Oncology: Hairy cell leukemia, chronic Oncology following F.E.N. Fluids: monitor off IVF Electrolytes: corrected calcium 9.3, phos 2.3: monitor Nutrition: regular diet Prophyalxis: DVT: d/c heparin chronic anemia, scds stockings GI: Protonix BID Dispostion: full code.
[2017-07-02] MEDS: FUROSEMIDE 20 MG TABLET (FP) PO SCH (17:51)
[2017-07-02 19:50] LABS: BASOPHIL 0.2 % (0-2.0); EOSINOPHIL 0.6 % (0-4.5); MCH 29.6 pg (25.7-33.7); MCHC 33.5 g/dl (32.0-35.9); MEAN CELL VOLUME 88.2 fl (80-96); MEAN PLT VOLUME 8.8 fl (7.5-11.1); NEUTROPHILS 88.3 % (42.8-82.8); PLATELET COUNT 186 K/MM3 (134-434); RDW 17.2 % (11.9-15.9); WHITE BLOOD COUNT 2.3 K/mm3 (4.0-10.0)
[2017-07-03] MEDS: ALBUTEROL SO4 2.5/IPRATROPIUM 0.5 INH SOL 3 ML VIAL.NEB. NEB SCH ×3 (00:06→12:22)
[2017-07-03] MEDS: PIPERACILLIN/TAZOB 3.375 GM 50 ML IVPB SCH ×2 (01:25→09:15)
[2017-07-03 07:54] LABS: BASOPHIL 0.4 % (0-2.0); EOSINOPHIL 0.5 % (0-4.5); MCH 29.7 pg (25.7-33.7); MCHC 33.4 g/dl (32.0-35.9); MEAN PLT VOLUME 8.2 fl (7.5-11.1); NEUTROPHILS 88.5 % (42.8-82.8); PLATELET COUNT 169 K/MM3 (134-434); RDW 17.5 % (11.9-15.9); WHITE BLOOD COUNT 2.1 K/mm3 (4.0-10.0)
[2017-07-03 08:33] LABS: ALBUMIN 1.6 g/dl (3.4-5.0); ALK PHOS 59 U/L (45-117); ANION GAP 7 (8-16); CALCIUM 7.2 mg/dL (8.5-10.1); CO2 29 mmol/L (21-32); CREATININE 0.8 mg/dL (0.7-1.3); GLUCOSE,RANDOM 110 mg/dL (74-106); SGOT/AST 55 U/L (15-37); SGPT/ALT 63 U/L (12-78); TOT PROT 4.6 g/dl (6.4-8.2)
[2017-07-03] MEDS ORDERED: PT OWN MED DRAWER 7, Y5N ONE (09:10)
[2017-07-03] MEDS: PANTOPRAZOLE 40 MG TABLET (FP) PO SCH ×2 (09:15→21:17)
[2017-07-03] MEDS: FUROSEMIDE 20 MG TABLET (FP) PO SCH (09:15)
--- NOTE | 2017-07-03 11:22 | PN ---
Progress Note, Physician History of Present Illness: Comfortable. No events. Reports no melena, hematochezia. Hemoccult - negative - Current Medication List Current Medications: Active Medications Albuterol/Ipratropium (Duoneb -) [address] [facility] Last Admin: 07/03/17 06:32 Dose: 1 amp Furosemide (Lasix -) [address] [facility] Last Admin: 07/03/17 09:15 Dose: 20 mg Piperacillin/Tazobactam/Dextrose (Zosyn 3.375gm Ivpb (Premix)) 50 mls @ 100 mls /hr IVPB Q8H-IV JIHAN PRN Reason: Protocol Last Admin: 07/03/17 09:15 Dose: 100 mls/hr Pantoprazole Sodium (Protonix -) [address] [facility] Last Admin: 07/03/17 09:15 Dose: 40 mg - Objective Vital Signs: Vital Signs Temperature 98.1 F 07/03/17 05:38 Pulse Rate 95 H 07/03/17 05:38 Respiratory Rate 20 07/03/17 05:38 Blood Pressure 118/61 07/03/17 05:38 O2 Sat by Pulse Oximetry (%) 97 07/02/17 21:00 Constitutional: Yes: No Distress, Calm Eyes: Yes: Conjunctiva Clear Gastrointestinal: Yes: Normal Bowel Sounds, Soft. No: Tenderness, Tenderness, Rebound, Vomiting Neurological: Yes: Alert, Oriented Labs: CBC, BMP 07/03/17 06:30 07/03/17 06:30 INR, PTT INR 1.36 (0.82-1.09) H 06/29/17 06:00 Laboratory Last Values WBC 2.1 K/mm3 (4.0-10.0) L 07/03/17 06:30 RBC 2.64 M/mm3 (4.00-5.60) L 07/03/17 06:30 Hgb 7.9 GM/dL (11.7-16.9) L 07/03/17 06:30 Hct 23.5 % (35.4-49) L 07/03/17 06:30 MCV 89.0 fl (80-96) 07/03/17 06:30 MCH 29.7 pg (25.7-33.7) 07/03/17 06:30 MCHC 33.4 g/dl (32.0-35.9) 07/03/17 06:30 RDW 17.5 % (11.9-15.9) H 07/03/17 06:30 Plt Count 169 K/MM3 (134-434) 07/03/17 06:30 MPV 8.2 fl (7.5-11.1) 07/03/17 06:30 Total Counted Cancelled 06/26/17 09:41 Neutrophils % 88.5 % (42.8-82.8) H 07/03/17 06:30 Neutrophils % (Manual) 89.0 % (42.8-82.8) H 06/25/17 07:30 Band Neutrophils % 11.0 % (0-10) H 06/25/17 07:30 Lymphocytes % 9.9 % (8-40) 07/03/17 06:30 Lymphocytes % (Manual) Cancelled 06/26/17 09:41 Monocytes % 0.7 % (3.8-10.2) L 07/03/17 06:30 Monocytes % (Manual) Cancelled 06/26/17 09:41 Eosinophils % 0.5 % (0-4.5) 07/03/17 06:30 Eosinophils % (Manual) Cancelled 06/26/17 09:41 Basophils % 0.4 % (0-2.0) 07/03/17 06:30 Basophils % (Manual) Cancelled 06/26/17 09:41 Myelocytes % (Man) Cancelled 06/26/17 09:41 Promyelocytes % (Man) Cancelled 06/26/17 09:41 Blast Cells % (Manual) Cancelled 06/26/17 09:41 Nucleated RBC % Cancelled 06/26/17 09:41 Metamyelocytes Cancelled 06/26/17 09:41 Hypersegmented Neuts Cancelled 06/26/17 09:41 Plasma Cells Cancelled 06/26/17 09:41 Smudge Cells Cancelled 06/26/17 09:41 Other Cell Type Cancelled 06/26/17 09:41 Hypochromia 1+ 07/02/17 06:00 Toxic Granulation Cancelled 06/26/17 09:41 Dohle Bodies Cancelled 06/26/17 09:41 Yasir Rods Cancelled 06/26/17 09:41 Platelet Estimate Adequate 06/25/17 07:30 Platelet Comment No Result Required. 06/25/17 07:30 Polychromasia Cancelled 06/26/17 09:41 Poikilocytosis Cancelled 06/26/17 09:41 Basophilic Stippling Cancelled 06/26/17 09:41 Anisocytosis 3+ 07/02/17 06:00 Microcytosis 2+ 07/02/17 06:00 Macrocytosis Few 07/02/17 06:00 Spherocytes Cancelled 06/26/17 09:41 Siderocytes Cancelled 06/26/17 09:41 Sickle Cells Cancelled 06/26/17 09:41 Target Cells Cancelled 06/26/17 09:41 Tear Drop Cells Cancelled 06/26/17 09:41 Ovalocytes Cancelled 06/26/17 09:41 Stomatocytes Cancelled 06/26/17 09:41 Helmet Cells Cancelled 06/26/17 09:41 Brooks-Jones Bodies Cancelled 06/26/17 09:41 [place] Rings Cancelled 06/26/17 09:41 [place] Cells Cancelled 06/26/17 09:41 Acanthocytes (Spur) Cancelled 06/26/17 09:41 Rouleaux Cancelled 06/26/17 09:41 Fragmented RBCs Cancelled 06/26/17 09:41 Schistocytes Cancelled 06/26/17 09:41 Haptoglobin 396 mg/dL (34-200) H 06/27/17 05:45 PT with INR 15.40 SEC (9.98-11.88) H 06/29/17 06:00 INR 1.36 (0.82-1.09) H 06/29/17 06:00 PTT (Actin FS) 31.8 SECONDS (26.9-34.4) 06/29/17 06:00 Anticoagulation Therapy Y 06/26/17 00:09 Puncture Site Right brachial 06/27/17 07:20 ABG pH 7.41 (7.35-7.45) 06/27/17 07:20 ABG pCO2 at Pt Temp 41.6 mmHg (35-45) D 06/27/17 07:20 ABG pO2 at Pt Temp 66.1 mmHg (68-100) L 06/27/17 07:20 ABG HCO3 25.6 meq/L (22-26) 06/27/17 07:20 ABG O2 Sat (Measured) 93.4 % (90-98.9) 06/27/17 07:20 ABG O2 Content 9.7 % vol (15-22) L* 06/27/17 07:20 ABG Base Excess 1.4 meq/l (-2-2) 06/27/17 07:20 Jose Luis Test Positive 06/27/17 07:20 O2 Delivery Device N/c 06/27/17 07:20 Oxygen Flow Rate 5l 06/27/17 07:20 Vent Mode Y 06/26/17 00:09 Vent Rate Y 06/26/17 00:09 Mechanical Rate Y 06/26/17 00:09 PEEP 0.0 cmH2O 06/27/17 07:20 Pressure Support Vent Y 06/26/17 00:09 Sodium 139 mmol/L (136-145) 07/03/17 06:30 Potassium 3.8 mmol/L (3.5-5.1) 07/03/17 06:30 Chloride 103 mmol/L (98-107) 07/03/17 06:30 Carbon Dioxide 29 mmol/L (21-32) 07/03/17 06:30 Anion Gap 7 (8-16) L 07/03/17 06:30 BUN 13 mg/dL (7-18) 07/03/17 06:30 Creatinine 0.8 mg/dL (0.7-1.3) 07/03/17 06:30 Creat Clearance w eGFR > 60 (>60) 07/03/17 06:30 Random Glucose 110 mg/dL (74-106) H 07/03/17 06:30 Lactic Acid 1.0 mmol/L (0.4-2.0) 06/26/17 01:50 Calcium 7.2 mg/dL (8.5-10.1) L 07/03/17 06:30 Phosphorus 2.3 mg/dL (2.5-4.9) L 06/29/17 06:00 Magnesium 2.1 mg/dL (1.8-2.4) 06/30/17 06:00 Total Bilirubin 2.0 mg/dL (0.2-1.0) H 07/03/17 06:30 Direct Bilirubin 1.9 mg/dL (0.0-0.2) H D 06/30/17 06:00 GGT 37 U/L (5-85) 06/26/17 09:41 AST 55 U/L (15-37) H D 07/03/17 06:30 ALT 63 U/L (12-78) D 07/03/17 06:30 Alkaline Phosphatase 59 U/L (45-117) 07/03/17 06:30 LD Total 128 U/L (87-241) 06/27/17 05:45 Creatine Kinase 27 IU/L (39-308) L 06/24/17 17:38 Troponin I < 0.03 ng/ml (0.03-0.50) L 06/24/17 17:38 B-Natriuretic Peptide 5131.16 pg/ml (5-450) H 07/02/17 06:00 Total Protein 4.6 g/dl (6.4-8.2) L 07/03/17 06:30 Albumin 1.6 g/dl (3.4-5.0) L 07/03/17 06:30 Total Amylase 45 U/L (25-125) 06/25/17 07:30 Lipase 43 U/L (22-51) 06/25/17 07:30 Urine Color Cristiana 07/01/17 16:00 Urine Appearance Slcloudy 07/01/17 16:00 Urine pH 5.0 (5.0-8.0) 07/01/17 16:00 Ur Specific [place] 1.027 (1.001-1.035) 07/01/17 16:00 Urine Protein 1+ (NEGATIVE) H 07/01/17 16:00 Urine Glucose (UA) Negative (NEGATIVE) 07/01/17 16:00 Urine Ketones Negative (NEGATIVE) 07/01/17 16:00 Urine Blood Negative (NEGATIVE) 07/01/17 16:00 Urine Nitrite Negative (NEGATIVE) 07/01/17 16:00 Urine Bilirubin Negative (NEGATIVE) 07/01/17 16:00 Urine Urobilinogen Negative mg/dL (0.2-1.0) 07/01/17 16:00 Ur Leukocyte Esterase Negative (NEGATIVE) 07/01/17 16:00 Urine WBC (Auto) 5 07/01/17 16:00 Urine RBC (Auto) 2 07/01/17 16:00 Urine RBC 0-1 /hpf (0-3) 06/24/17 23:20 Urine WBC 2-3 (0-2) 06/24/17 23:20 Ur Epithelial Cells Rare /hpf (FEW) 07/01/17 16:00 Urine Bacteria Moderate /hpf (NEGATIVE) 06/24/17 23:20 Urine Mucus Rare 07/01/17 16:00 Stool Occult Blood Negative (NEGATIVE) 07/03/17 02:15 Alcohol, Quantitative 5.3 mg/dl (5.3-49) 06/24/17 17:38 Hepatitis A IgM Ab Negative (Negative) 06/25/17 07:30 Hep Bs Antigen Negative (Negative) 06/25/17 07:30 Hep B Core IgM Ab Negative (Negative) 06/25/17 07:30 Hepatitis C Antibody 0.1 s/co ratio (0.0-0.9) 06/27/17 05:45 Blood Type A POSITIVE 06/30/17 08:40 Antibody Screen Negative 06/30/17 08:40 Crossmatch See Detail 06/30/17 08:40 Problem List - Problems (1) Transaminitis Code(s): R74.0 - NONSPEC ELEV OF LEVELS OF TRANSAMNS & LACTIC ACID DEHYDRGNSE (2) Hepatitis Code(s): K75.9 - INFLAMMATORY LIVER DISEASE, UNSPECIFIED (3) 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 DUCT (4) Pneumonia Code(s): J18.9 - PNEUMONIA, UNSPECIFIED ORGANISM Qualifiers: Pneumonia type: due to unspecified organism Laterality: left Lung location: unspecified part of lung Qualified Code(s): J18.9 - Pneumonia, unspecified organism (5) Anemia Code(s): D64.9 - ANEMIA, UNSPECIFIED (6) Septic shock Code(s): A41.9 - SEPSIS, UNSPECIFIED ORGANISM; R65.21 - SEVERE SEPSIS WITH SEPTIC SHOCK Assessment/Plan D. Bilirubin mildly elevated. ransaminases normalized. Hemoccult negative OK to d/c from GI perspective. Follow with Dr. Traore in 1 week. Discussed with the patient
[2017-07-03 13:23] LABS: BASOPHIL 0.4 % (0-2.0); EOSINOPHIL 0.7 % (0-4.5); MCHC 32.9 g/dl (32.0-35.9); MEAN CELL VOLUME 88.1 fl (80-96); PLATELET COUNT 171 K/MM3 (134-434); RDW 17.8 % (11.9-15.9); WHITE BLOOD COUNT 2.1 K/mm3 (4.0-10.0)
--- NOTE | 2017-07-03 14:51 | PN ---
Progress Note, Physician History of Present Illness: Awake, alert OOB in chair No complaints of dyspnea/cough No c/o fever/ chills Afebrile WBC 2.1 ANC 1.8 Blood c/s no growth - Current Medication List Current Medications: Active Medications Albuterol/Ipratropium (Duoneb -) 1 amp NEB QIDR [facility] Last Admin: 07/03/17 12:22 Dose: 1 amp Furosemide (Lasix -) 20 mg PO DAILY [facility] Last Admin: 07/03/17 09:15 Dose: 20 mg Piperacillin/Tazobactam/Dextrose (Zosyn 3.375gm Ivpb (Premix)) 50 mls @ 100 mls /hr IVPB Q8H-IV JIHAN PRN Reason: Protocol Last Admin: 07/03/17 09:15 Dose: 100 mls/hr Pantoprazole Sodium (Protonix -) 40 mg PO BID [facility] Last Admin: 07/03/17 09:15 Dose: 40 mg - Objective Vital Signs: Vital Signs Temperature 97.9 F 07/03/17 13:43 Pulse Rate 108 H 07/03/17 13:43 Respiratory Rate 18 07/03/17 13:43 Blood Pressure 112/60 07/03/17 13:43 O2 Sat by Pulse Oximetry (%) 90 L 07/03/17 13:05 Constitutional: Yes: No Distress Eyes: Yes: Conjunctiva Clear Cardiovascular: Yes: Regular Rate and Rhythm, S1, S2 Respiratory: Yes: Other (+ crepitations at bases bilaterally) Gastrointestinal: Yes: Normal Bowel Sounds, Soft. No: Tenderness Edema: Yes Labs: CBC, BMP 07/03/17 13:13 07/03/17 06:30 INR, PTT INR 1.36 (0.82-1.09) H 06/29/17 06:00 Assessment/Plan Extensive L sided pneumonia clinically improved Sepsis secondary to pneumonia HCL/MDS/ chronic pancytopenia Elevated LFTs- resolved Switch to po Augmentin 875mg bid x 3d
--- NOTE | 2017-07-03 15:00 | PN ---
Progress Note, Physician History of Present Illness: This is an 82 year old male with a past medical history of anemia, hairy cell leukemia, colon polyp, HTN who presented to the ED with general malaise, lethargy and cough. He was seen by his PCP one week ago who felt it was viral but when his symptoms became worse he went to his PCP again today who noted low oxygen sat and sent pt to the ED. Pt also reports discolored urine last week, states it was red and so it must be blood. Upon exam pt remains lethargic, mild cough. Pt states cough is productive of yellow phlegm. pt denies abdominal pain , diarrhea, vomiting, constipation, change in color or consistency of stool. - Current Medication List Current Medications: Active Medications Albuterol/Ipratropium (Duoneb -) 1 amp NEB QIDR [facility] Last Admin: 07/03/17 12:22 Dose: 1 amp Furosemide (Lasix -) 20 mg PO DAILY [facility] Last Admin: 07/03/17 09:15 Dose: 20 mg Piperacillin/Tazobactam/Dextrose (Zosyn 3.375gm Ivpb (Premix)) 50 mls @ 100 mls /hr IVPB [id number] JIHAN PRN Reason: Protocol Last Admin: 07/03/17 09:15 Dose: 100 mls/hr Pantoprazole Sodium (Protonix -) 40 mg PO BID [facility] Last Admin: 07/03/17 09:15 Dose: 40 mg - Objective Vital Signs: Vital Signs Temperature 97.9 F 07/03/17 13:43 Pulse Rate 108 H 07/03/17 13:43 Respiratory Rate 18 07/03/17 13:43 Blood Pressure 112/60 07/03/17 13:43 O2 Sat by Pulse Oximetry (%) 90 L 07/03/17 13:05 Eyes: Yes: WNL, Conjunctiva Clear, EOM Intact HENT: Yes: WNL, Atraumatic, Normocephalic Neck: Yes: WNL, Supple, Trachea Midline Cardiovascular: Yes: WNL, Regular Rate and Rhythm Respiratory: Yes: WNL, Regular, CTA Bilaterally Gastrointestinal: Yes: WNL, Normal Bowel Sounds Genitourinary: Yes: WNL Musculoskeletal: Yes: WNL Extremities: Yes: WNL Edema: Yes Integumentary: Yes: WNL Neurological: Yes: WNL, Alert, Oriented ...Motor Strength: WNL Psychiatric: Yes: WNL Labs: CBC, BMP 07/03/17 13:13 07/03/17 06:30 INR, PTT INR 1.36 (0.82-1.09) H 06/29/17 06:00 Laboratory Tests 06/24/17 06/24/17 06/24/17 17:38 17:38 17:38 WBC 3.5 L D RBC 2.89 L Hgb 8.6 L D Hct 26.0 L D MCV 90.0 MCH 29.8 MCHC 33.1 RDW 17.2 H Plt Count 207 D MPV 8.0 D Total Counted Neutrophils % 89.0 H D Neutrophils % (Manual) Band Neutrophils % Lymphocytes % 4.8 L D Lymphocytes % (Manual) Monocytes % 5.9 D Monocytes % (Manual) Eosinophils % 0.2 Eosinophils % (Manual) Basophils % 0.1 Basophils % (Manual) Myelocytes % (Man) Promyelocytes % (Man) Blast Cells % (Manual) Nucleated RBC % Metamyelocytes Hypersegmented Neuts Plasma Cells Smudge Cells Other Cell Type Hypochromia Toxic Granulation Dohle Bodies Yasir Rods Platelet Estimate Platelet Comment Polychromasia Poikilocytosis Basophilic Stippling Anisocytosis Microcytosis Macrocytosis Spherocytes Siderocytes Sickle Cells Target Cells Tear Drop Cells Ovalocytes Stomatocytes Helmet Cells [place] Bodies [place] Rings Aris Cells Acanthocytes (Spur) Rouleaux Fragmented RBCs Schistocytes Haptoglobin PT with INR 15.9 H INR 1.43 H PTT (Actin FS) Anticoagulation Therapy Puncture Site ABG pH ABG pCO2 at Pt Temp ABG pO2 at Pt Temp ABG HCO3 ABG O2 Sat (Measured) ABG O2 Content ABG Base Excess Jose Luis Test O2 Delivery Device Oxygen Flow Rate Vent Mode Vent Rate Mechanical Rate PEEP Pressure Support Vent Sodium 129 L Potassium 3.4 L Chloride 93 L Carbon Dioxide 24 Anion Gap 12 BUN 53 H D Creatinine 1.5 H D Creat Clearance w eGFR 44.69 Random Glucose 130 H Lactic Acid Calcium 8.1 L Phosphorus Magnesium Total Bilirubin 5.3 H D Direct Bilirubin GGT AST 256 H D ALT 275 H D Alkaline Phosphatase 101 H D LD Total Creatine Kinase 27 L Troponin I < 0.03 L B-Natriuretic Peptide Total Protein 5.4 L Albumin 2.0 L D Total Amylase Lipase Urine Color Urine Appearance Urine pH Ur Specific [place] Urine Protein Urine Glucose (UA) Urine Ketones Urine Blood Urine Nitrite Urine Bilirubin Urine Urobilinogen Ur Leukocyte Esterase Urine WBC (Auto) Urine RBC (Auto) Urine RBC Urine WBC Ur Epithelial Cells Urine Bacteria Urine Mucus Stool Occult Blood Alcohol, Quantitative Hepatitis A IgM Ab Hep Bs Antigen Hep B Core IgM Ab Hepatitis C Antibody Blood Type Antibody Screen Crossmatch 06/24/17 06/24/17 06/24/17 17:38 19:00 21:01 WBC RBC Hgb Hct MCV MCH MCHC RDW Plt Count MPV Total Counted Neutrophils % Neutrophils % (Manual) Band Neutrophils % Lymphocytes % Lymphocytes % (Manual) Monocytes % Monocytes % (Manual) Eosinophils % Eosinophils % (Manual) Basophils % Basophils % (Manual) Myelocytes % (Man) Promyelocytes % (Man) Blast Cells % (Manual) Nucleated RBC % Metamyelocytes Hypersegmented Neuts Plasma Cells Smudge Cells Other Cell Type Hypochromia Toxic Granulation Dohle Bodies Yasir Rods Platelet Estimate Platelet Comment Polychromasia Poikilocytosis Basophilic Stippling Anisocytosis Microcytosis Macrocytosis Spherocytes Siderocytes Sickle Cells Target Cells Tear Drop Cells Ovalocytes Stomatocytes Helmet Cells [place] Bodies [place] Rings [place] Cells Acanthocytes (Spur) Rouleaux Fragmented RBCs Schistocytes Haptoglobin PT with INR INR PTT (Actin FS) Anticoagulation Therapy Puncture Site ABG pH ABG pCO2 at Pt Temp ABG pO2 at Pt Temp ABG HCO3 ABG O2 Sat (Measured) ABG O2 Content ABG Base Excess Jose Luis Test O2 Delivery Device Oxygen Flow Rate Vent Mode Vent Rate Mechanical Rate PEEP Pressure Support Vent Sodium Potassium Chloride Carbon Dioxide Anion Gap BUN Creatinine Creat Clearance w eGFR Random Glucose Lactic Acid 1.6 Calcium Phosphorus Magnesium Total Bilirubin Direct Bilirubin GGT AST ALT Alkaline Phosphatase LD Total Creatine Kinase Troponin I B-Natriuretic Peptide Total Protein Albumin Total Amylase Lipase Urine Color Urine Appearance Urine pH Ur Specific [place] Urine Protein Urine Glucose (UA) Urine Ketones Urine Blood Urine Nitrite Urine Bilirubin Urine Urobilinogen Ur Leukocyte Esterase Urine WBC (Auto) Urine RBC (Auto) Urine RBC Urine WBC Ur Epithelial Cells Urine Bacteria Urine Mucus Stool Occult Blood Alcohol, Quantitative 5.3 Hepatitis A IgM Ab Hep Bs Antigen Hep B Core IgM Ab Hepatitis C Antibody Blood Type A POSITIVE Antibody Screen Negative Crossmatch 06/24/17 06/25/17 06/25/17 23:20 07:30 07:30 WBC 2.5 L RBC 2.42 L Hgb 7.2 L D Hct 22.0 L D MCV 90.9 MCH 29.9 MCHC 32.9 RDW 17.3 H Plt Count 177 MPV 8.5 Total Counted Neutrophils % No Result Required. Neutrophils % (Manual) Band Neutrophils % Lymphocytes % No Result Required. Lymphocytes % (Manual) Monocytes % Monocytes % (Manual) Eosinophils % Eosinophils % (Manual) Basophils % Basophils % (Manual) Myelocytes % (Man) Promyelocytes % (Man) Blast Cells % (Manual) Nucleated RBC % Metamyelocytes Hypersegmented Neuts Plasma Cells Smudge Cells Other Cell Type Hypochromia Toxic Granulation Dohle Bodies Yasir Rods Platelet Estimate Platelet Comment Polychromasia Poikilocytosis Basophilic Stippling Anisocytosis Microcytosis Macrocytosis Spherocytes Siderocytes Sickle Cells Target Cells Tear Drop Cells Ovalocytes Stomatocytes Helmet Cells [place] Bodies [place] Rings Aris Cells Acanthocytes (Spur) Rouleaux Fragmented RBCs Schistocytes Haptoglobin PT with INR INR PTT (Actin FS) Anticoagulation Therapy Puncture Site ABG pH ABG pCO2 at Pt Temp ABG pO2 at Pt Temp ABG HCO3 ABG O2 Sat (Measured) ABG O2 Content ABG Base Excess Jose Luis Test O2 Delivery Device Oxygen Flow Rate Vent Mode Vent Rate Mechanical Rate PEEP Pressure Support Vent Sodium 134 L Potassium 3.4 L Chloride 100 Carbon Dioxide 25 Anion Gap 9 BUN 47 H Creatinine 1.3 Creat Clearance w eGFR Random Glucose 143 H Lactic Acid Calcium 7.4 L Phosphorus 4.0 Magnesium 2.2 Total Bilirubin 4.3 H Direct Bilirubin 3.0 H GGT AST 131 H D ALT 182 H D Alkaline Phosphatase 74 D LD Total Creatine Kinase Troponin I B-Natriuretic Peptide Total Protein 4.5 L Albumin 1.6 L Total Amylase Lipase Urine Color Dk yellow Urine Appearance Cloudy Urine pH 5.5 Ur Specific [place] 1.015 Urine Protein 1+ H Urine Glucose (UA) Negative Urine Ketones Negative Urine Blood Negative Urine Nitrite Negative Urine Bilirubin 2+ H Urine Urobilinogen >=8.0 e.u./dl Ur Leukocyte Esterase Negative Urine WBC (Auto) Urine RBC (Auto) Urine RBC 0-1 Urine WBC 2-3 Ur Epithelial Cells Urine Bacteria Moderate Urine Mucus Stool Occult Blood Alcohol, Quantitative Hepatitis A IgM Ab Hep Bs Antigen Hep B Core IgM Ab Hepatitis C Antibody Blood Type Antibody Screen Crossmatch 06/25/17 06/25/17 06/25/17 07:30 07:30 07:30 WBC RBC Hgb Hct MCV MCH MCHC RDW Plt Count MPV Total Counted Neutrophils % Neutrophils % (Manual) 89.0 H Band Neutrophils % 11.0 H Lymphocytes % Lymphocytes % (Manual) Monocytes % Monocytes % (Manual) Eosinophils % Eosinophils % (Manual) Basophils % Basophils % (Manual) Myelocytes % (Man) Promyelocytes % (Man) Blast Cells % (Manual) Nucleated RBC % Metamyelocytes Hypersegmented Neuts Plasma Cells Smudge Cells Other Cell Type Hypochromia Toxic Granulation Dohle Bodies Yasir Rods Platelet Estimate Adequate Platelet Comment No Result Required. Polychromasia Poikilocytosis Basophilic Stippling Anisocytosis Microcytosis Macrocytosis Spherocytes Siderocytes Sickle Cells Target Cells Tear Drop Cells Ovalocytes Stomatocytes Helmet Cells [place] Bodies [place] Rings [place] Cells Acanthocytes (Spur) Rouleaux Fragmented RBCs Schistocytes Haptoglobin PT with INR INR PTT (Actin FS) Anticoagulation Therapy Puncture Site ABG pH ABG pCO2 at Pt Temp ABG pO2 at Pt Temp ABG HCO3 ABG O2 Sat (Measured) ABG O2 Content ABG Base Excess Jose Luis Test O2 Delivery Device Oxygen Flow Rate Vent Mode Vent Rate Mechanical Rate PEEP Pressure Support Vent Sodium Potassium Chloride Carbon Dioxide Anion Gap BUN Creatinine Creat Clearance w eGFR Random Glucose Lactic Acid Calcium Phosphorus Magnesium Total Bilirubin Direct Bilirubin GGT AST ALT Alkaline Phosphatase LD Total Creatine Kinase Troponin I B-Natriuretic Peptide Total Protein Albumin Total Amylase 45 Lipase 43 Urine Color Urine Appearance Urine pH Ur Specific [place] Urine Protein Urine Glucose (UA) Urine Ketones Urine Blood Urine Nitrite Urine Bilirubin Urine Urobilinogen Ur Leukocyte Esterase Urine WBC (Auto) Urine RBC (Auto) Urine RBC Urine WBC Ur Epithelial Cells Urine Bacteria Urine Mucus Stool Occult Blood Alcohol, Quantitative Hepatitis A IgM Ab Negative Hep Bs Antigen Negative Hep B Core IgM Ab Negative Hepatitis C Antibody Blood Type Antibody Screen Crossmatch 06/25/17 06/25/17 06/26/17 18:00 18:00 00:09 WBC 3.6 L D RBC 2.68 L Hgb 8.0 L D Hct 24.3 L MCV 90.7 MCH 29.7 MCHC 32.8 RDW 16.7 H Plt Count 208 MPV 8.2 Total Counted Neutrophils % Neutrophils % (Manual) Band Neutrophils % Lymphocytes % Lymphocytes % (Manual) Monocytes % Monocytes % (Manual) Eosinophils % Eosinophils % (Manual) Basophils % Basophils % (Manual) Myelocytes % (Man) Promyelocytes % (Man) Blast Cells % (Manual) Nucleated RBC % Metamyelocytes Hypersegmented Neuts Plasma Cells Smudge Cells Other Cell Type Hypochromia Toxic Granulation Dohle Bodies Yasir Rods Platelet Estimate Platelet Comment Polychromasia Poikilocytosis Basophilic Stippling Anisocytosis Microcytosis Macrocytosis Spherocytes Siderocytes Sickle Cells Target Cells Tear Drop Cells Ovalocytes Stomatocytes Helmet Cells [place] Bodies [place] Rings [place] Cells Acanthocytes (Spur) Rouleaux Fragmented RBCs Schistocytes Haptoglobin PT with INR INR PTT (Actin FS) Anticoagulation Therapy Y Puncture Site Right radial ABG pH 7.49 H ABG pCO2 at Pt Temp 32.1 L ABG pO2 at Pt Temp 71.5 ABG HCO3 24.5 ABG O2 Sat (Measured) 97.3 ABG O2 Content 7.5 L* ABG Base Excess 1.5 Jose Luis Test Positive O2 Delivery Device Y Oxygen Flow Rate 87 Vent Mode Y Vent Rate Y Mechanical Rate Y PEEP Pressure Support Vent Y Sodium Potassium Chloride Carbon Dioxide Anion Gap BUN Creatinine Creat Clearance w eGFR Random Glucose Lactic Acid Calcium Phosphorus Magnesium Total Bilirubin Direct Bilirubin GGT AST ALT Alkaline Phosphatase LD Total Creatine Kinase Troponin I B-Natriuretic Peptide 5117.74 H Total Protein Albumin Total Amylase Lipase Urine Color Urine Appearance Urine pH Ur Specific [place] Urine Protein Urine Glucose (UA) Urine Ketones Urine Blood Urine Nitrite Urine Bilirubin Urine Urobilinogen Ur Leukocyte Esterase Urine WBC (Auto) Urine RBC (Auto) Urine RBC Urine WBC Ur Epithelial Cells Urine Bacteria Urine Mucus Stool Occult Blood Alcohol, Quantitative Hepatitis A IgM Ab Hep Bs Antigen Hep B Core IgM Ab Hepatitis C Antibody Blood Type Antibody Screen Crossmatch 06/26/17 06/26/17 06/26/17 01:50 01:50 01:50 WBC 1.5 L* RBC 2.03 L Hgb 5.9 L* Hct 18.3 L MCV 90.2 MCH 29.4 MCHC 32.6 RDW 18.0 H Plt Count 144 MPV 8.6 Total Counted Neutrophils % 93.2 H Neutrophils % (Manual) Band Neutrophils % Lymphocytes % 5.2 L Lymphocytes % (Manual) Monocytes % 1.2 L Monocytes % (Manual) Eosinophils % 0.3 Eosinophils % (Manual) Basophils % 0.1 Basophils % (Manual) Myelocytes % (Man) Promyelocytes % (Man) Blast Cells % (Manual) Nucleated RBC % Metamyelocytes Hypersegmented Neuts Plasma Cells Smudge Cells Other Cell Type Hypochromia Toxic Granulation Dohle Bodies Yasir Rods Platelet Estimate Platelet Comment Polychromasia Poikilocytosis Basophilic Stippling Anisocytosis Microcytosis Macrocytosis Spherocytes Siderocytes Sickle Cells Target Cells Tear Drop Cells Ovalocytes Stomatocytes Helmet Cells [place] Bodies [place] Rings Aris Cells Acanthocytes (Spur) Rouleaux Fragmented RBCs Schistocytes Haptoglobin PT with INR INR PTT (Actin FS) Anticoagulation Therapy Puncture Site ABG pH ABG pCO2 at Pt Temp ABG pO2 at Pt Temp ABG HCO3 ABG O2 Sat (Measured) ABG O2 Content ABG Base Excess Jose Luis Test O2 Delivery Device Oxygen Flow Rate Vent Mode Vent Rate Mechanical Rate PEEP Pressure Support Vent Sodium 139 Potassium 4.2 Chloride 103 Carbon Dioxide 22 Anion Gap 14 BUN 38 H Creatinine 1.2 Creat Clearance w eGFR Random Glucose 152 H Lactic Acid 1.0 Calcium 6.7 L* Phosphorus 2.9 Magnesium 2.2 Total Bilirubin Direct Bilirubin GGT AST ALT Alkaline Phosphatase LD Total Creatine Kinase Troponin I B-Natriuretic Peptide Total Protein Albumin 1.4 L Total Amylase Lipase Urine Color Urine Appearance Urine pH Ur Specific [place] Urine Protein Urine Glucose (UA) Urine Ketones Urine Blood Urine Nitrite Urine Bilirubin Urine Urobilinogen Ur Leukocyte Esterase Urine WBC (Auto) Urine RBC (Auto) Urine RBC Urine WBC Ur Epithelial Cells Urine Bacteria Urine Mucus Stool Occult Blood Alcohol, Quantitative Hepatitis A IgM Ab Hep Bs Antigen Hep B Core IgM Ab Hepatitis C Antibody Blood Type Antibody Screen Crossmatch 06/26/17 06/26/17 06/26/17 03:50 03:50 07:30 WBC 1.5 L* RBC 1.92 L Hgb 5.7 L* Hct 17.6 L MCV 91.3 MCH 29.6 MCHC 32.4 RDW 17.7 H Plt Count 141 MPV 9.0 Total Counted Neutrophils % Neutrophils % (Manual) Band Neutrophils % Lymphocytes % Lymphocytes % (Manual) Monocytes % Monocytes % (Manual) Eosinophils % Eosinophils % (Manual) Basophils % Basophils % (Manual) Myelocytes % (Man) Promyelocytes % (Man) Blast Cells % (Manual) Nucleated RBC % Metamyelocytes Hypersegmented Neuts Plasma Cells Smudge Cells Other Cell Type Hypochromia Toxic Granulation Dohle Bodies Yasir Rods Platelet Estimate Platelet Comment Polychromasia Poikilocytosis Basophilic Stippling Anisocytosis Microcytosis Macrocytosis Spherocytes Siderocytes Sickle Cells Target Cells Tear Drop Cells Ovalocytes Stomatocytes Helmet Cells [place] Bodies [place] Rings Aris Cells Acanthocytes (Spur) Rouleaux Fragmented RBCs Schistocytes Haptoglobin PT with INR INR PTT (Actin FS) Anticoagulation Therapy Puncture Site ABG pH ABG pCO2 at Pt Temp ABG pO2 at Pt Temp ABG HCO3 ABG O2 Sat (Measured) ABG O2 Content ABG Base Excess Jose Luis Test O2 Delivery Device Oxygen Flow Rate Vent Mode Vent Rate Mechanical Rate PEEP Pressure Support Vent Sodium Potassium Chloride Carbon Dioxide Anion Gap BUN Creatinine Creat Clearance w eGFR Random Glucose Lactic Acid Calcium Phosphorus Magnesium Total Bilirubin Direct Bilirubin GGT AST ALT Alkaline Phosphatase LD Total Creatine Kinase Troponin I B-Natriuretic Peptide Total Protein Albumin Cancelled Total Amylase Lipase Urine Color Urine Appearance Urine pH Ur Specific [place] Urine Protein Urine Glucose (UA) Urine Ketones Urine Blood Urine Nitrite Urine Bilirubin Urine Urobilinogen Ur Leukocyte Esterase Urine WBC (Auto) Urine RBC (Auto) Urine RBC Urine WBC Ur Epithelial Cells Urine Bacteria Urine Mucus Stool Occult Blood Alcohol, Quantitative Hepatitis A IgM Ab Hep Bs Antigen Hep B Core IgM Ab Hepatitis C Antibody Blood Type A POSITIVE Antibody Screen Crossmatch See Detail 06/26/17 06/26/17 06/26/17 09:41 09:41 09:41 WBC 5.1 D RBC 2.62 L D Hgb 7.8 L D Hct 23.8 L D MCV 90.8 MCH 29.8 MCHC 32.8 RDW 17.2 H Plt Count 195 D MPV 8.5 Total Counted Neutrophils % 96.4 H Neutrophils % (Manual) Band Neutrophils % Lymphocytes % 2.0 L D Lymphocytes % (Manual) Monocytes % 0.9 L Monocytes % (Manual) Eosinophils % 0.2 Eosinophils % (Manual) Basophils % 0.5 D Basophils % (Manual) Myelocytes % (Man) Promyelocytes % (Man) Blast Cells % (Manual) Nucleated RBC % Metamyelocytes Hypersegmented Neuts Plasma Cells Smudge Cells Other Cell Type Hypochromia Toxic Granulation Dohle Bodies Yasir Rods Platelet Estimate Platelet Comment Polychromasia Poikilocytosis Basophilic Stippling Anisocytosis Microcytosis Macrocytosis Spherocytes Siderocytes Sickle Cells Target Cells Tear Drop Cells Ovalocytes Stomatocytes Helmet Cells [place] Bodies [place] Rings Aris Cells Acanthocytes (Spur) Rouleaux Fragmented RBCs Schistocytes Haptoglobin PT with INR INR PTT (Actin FS) Anticoagulation Therapy Puncture Site ABG pH ABG pCO2 at Pt Temp ABG pO2 at Pt Temp ABG HCO3 ABG O2 Sat (Measured) ABG O2 Content ABG Base Excess Jose Luis Test O2 Delivery Device Oxygen Flow Rate Vent Mode Vent Rate Mechanical Rate PEEP Pressure Support Vent Sodium 137 Potassium 3.8 Chloride 103 Carbon Dioxide 26 Anion Gap 8 BUN 37 H Creatinine 1.2 Creat Clearance w eGFR 57.82 Random Glucose 208 H D Lactic Acid Calcium 7.1 L Phosphorus 2.8 Magnesium 2.4 Total Bilirubin 5.3 H Direct Bilirubin 4.4 H GGT 37 AST 59 H ALT 127 H Alkaline Phosphatase 86 LD Total Creatine Kinase Troponin I B-Natriuretic Peptide Total Protein 4.3 L Albumin 1.4 L Total Amylase Lipase Urine Color Urine Appearance Urine pH Ur Specific [place] Urine Protein Urine Glucose (UA) Urine Ketones Urine Blood Urine Nitrite Urine Bilirubin Urine Urobilinogen Ur Leukocyte Esterase Urine WBC (Auto) Urine RBC (Auto) Urine RBC Urine WBC Ur Epithelial Cells Urine Bacteria Urine Mucus Stool Occult Blood Alcohol, Quantitative Hepatitis A IgM Ab Hep Bs Antigen Hep B Core IgM Ab Hepatitis C Antibody Blood Type Antibody Screen Crossmatch 06/26/17 06/26/17 06/27/17 09:41 09:41 05:45 WBC RBC Hgb Hct MCV MCH MCHC RDW Plt Count MPV Total Counted Cancelled Neutrophils % Neutrophils % (Manual) Cancelled Band Neutrophils % Cancelled Lymphocytes % Lymphocytes % (Manual) Cancelled Monocytes % Monocytes % (Manual) Cancelled Eosinophils % Eosinophils % (Manual) Cancelled Basophils % Basophils % (Manual) Cancelled Myelocytes % (Man) Cancelled Promyelocytes % (Man) Cancelled Blast Cells % (Manual) Cancelled Nucleated RBC % Cancelled Metamyelocytes Cancelled Hypersegmented Neuts Cancelled Plasma Cells Cancelled Smudge Cells Cancelled Other Cell Type Cancelled Hypochromia Cancelled Toxic Granulation Cancelled Dohle Bodies Cancelled Yasir Rods Cancelled Platelet Estimate Cancelled Platelet Comment Cancelled Polychromasia Cancelled Poikilocytosis Cancelled Basophilic Stippling Cancelled Anisocytosis Cancelled Microcytosis Cancelled Macrocytosis Cancelled Spherocytes Cancelled Siderocytes Cancelled Sickle Cells Cancelled Target Cells Cancelled Tear Drop Cells Cancelled Ovalocytes Cancelled Stomatocytes Cancelled Helmet Cells Cancelled [place] Bodies Cancelled [place] Rings Cancelled Aris Cells Cancelled Acanthocytes (Spur) Cancelled Rouleaux Cancelled Fragmented RBCs Cancelled Schistocytes Cancelled Haptoglobin PT with INR INR PTT (Actin FS) Anticoagulation Therapy Puncture Site ABG pH ABG pCO2 at Pt Temp ABG pO2 at Pt Temp ABG HCO3 ABG O2 Sat (Measured) ABG O2 Content ABG Base Excess Jose Luis Test O2 Delivery Device Oxygen Flow Rate Vent Mode Vent Rate Mechanical Rate PEEP Pressure Support Vent Sodium Potassium Chloride Carbon Dioxide Anion Gap BUN Creatinine Creat Clearance w eGFR Random Glucose Lactic Acid Calcium Phosphorus Magnesium Total Bilirubin 4.0 H D Direct Bilirubin 3.5 H D GGT AST 88 H D ALT 143 H Alkaline Phosphatase 80 LD Total 128 Creatine Kinase Troponin I B-Natriuretic Peptide Total Protein 3.9 L Albumin 1.4 L Total Amylase Lipase Urine Color Urine Appearance Urine pH Ur Specific [place] Urine Protein Urine Glucose (UA) Urine Ketones Urine Blood Urine Nitrite Urine Bilirubin Urine Urobilinogen Ur Leukocyte Esterase Urine WBC (Auto) Urine RBC (Auto) Urine RBC Urine WBC Ur Epithelial Cells Urine Bacteria Urine Mucus Stool Occult Blood Alcohol, Quantitative Hepatitis A IgM Ab Hep Bs Antigen Hep B Core IgM Ab Hepatitis C Antibody Blood Type Antibody Screen Crossmatch 06/27/17 06/27/17 06/27/17 05:45 05:45 05:45 WBC RBC Hgb Hct MCV MCH MCHC RDW Plt Count MPV Total Counted Neutrophils % Neutrophils % (Manual) Band Neutrophils % Lymphocytes % Lymphocytes % (Manual) Monocytes % Monocytes % (Manual) Eosinophils % Eosinophils % (Manual) Basophils % Basophils % (Manual) Myelocytes % (Man) Promyelocytes % (Man) Blast Cells % (Manual) Nucleated RBC % Metamyelocytes Hypersegmented Neuts Plasma Cells Smudge Cells Other Cell Type Hypochromia Toxic Granulation Dohle Bodies Yasir Rods Platelet Estimate Platelet Comment Polychromasia Poikilocytosis Basophilic Stippling Anisocytosis Microcytosis Macrocytosis Spherocytes Siderocytes Sickle Cells Target Cells Tear Drop Cells Ovalocytes Stomatocytes Helmet Cells [place] Bodies [place] Rings [place] Cells Acanthocytes (Spur) Rouleaux Fragmented RBCs Schistocytes Haptoglobin 396 H PT with INR INR PTT (Actin FS) Anticoagulation Therapy Puncture Site ABG pH ABG pCO2 at Pt Temp ABG pO2 at Pt Temp ABG HCO3 ABG O2 Sat (Measured) ABG O2 Content ABG Base Excess Jose Luis Test O2 Delivery Device Oxygen Flow Rate Vent Mode Vent Rate Mechanical Rate PEEP Pressure Support Vent Sodium 138 Potassium 3.7 Chloride 103 Carbon Dioxide 23 Anion Gap 12 BUN 24 H D Creatinine 0.9 D Creat Clearance w eGFR > 60 Random Glucose 136 H D Lactic Acid Calcium 6.9 L* Phosphorus Magnesium Total Bilirubin 4.1 H Direct Bilirubin 3.6 H GGT AST 37 D ALT 91 H D Alkaline Phosphatase 80 LD Total Creatine Kinase Troponin I B-Natriuretic Peptide Total Protein 4.2 L Albumin 1.3 L Total Amylase Lipase Urine Color Urine Appearance Urine pH Ur Specific [place] Urine Protein Urine Glucose (UA) Urine Ketones Urine Blood Urine Nitrite Urine Bilirubin Urine Urobilinogen Ur Leukocyte Esterase Urine WBC (Auto) Urine RBC (Auto) Urine RBC Urine WBC Ur Epithelial Cells Urine Bacteria Urine Mucus Stool Occult Blood Alcohol, Quantitative Hepatitis A IgM Ab Hep Bs Antigen Hep B Core IgM Ab Hepatitis C Antibody 0.1 Blood Type Antibody Screen Crossmatch 06/27/17 06/27/17 06/28/17 05:45 07:20 05:40 WBC 3.7 L RBC 2.56 L Hgb 7.6 L Hct 23.1 L MCV 90.1 MCH 29.6 MCHC 32.9 RDW 17.6 H Plt Count 187 MPV 8.3 Total Counted Neutrophils % 95.1 H Neutrophils % (Manual) Band Neutrophils % Lymphocytes % 3.6 L D Lymphocytes % (Manual) Monocytes % 0.8 L Monocytes % (Manual) Eosinophils % 0.4 D Eosinophils % (Manual) Basophils % 0.1 Basophils % (Manual) Myelocytes % (Man) Promyelocytes % (Man) Blast Cells % (Manual) Nucleated RBC % Metamyelocytes Hypersegmented Neuts Plasma Cells Smudge Cells Other Cell Type Hypochromia Toxic Granulation Dohle Bodies Yasir Rods Platelet Estimate Platelet Comment Polychromasia Poikilocytosis Basophilic Stippling Anisocytosis Microcytosis Macrocytosis Spherocytes Siderocytes Sickle Cells Target Cells Tear Drop Cells Ovalocytes Stomatocytes Helmet Cells [place] Bodies [place] Rings [place] Cells Acanthocytes (Spur) Rouleaux Fragmented RBCs Schistocytes Haptoglobin PT with INR INR PTT (Actin FS) Anticoagulation Therapy Puncture Site Right brachial ABG pH 7.41 ABG pCO2 at Pt Temp 41.6 D ABG pO2 at Pt Temp 66.1 L ABG HCO3 25.6 ABG O2 Sat (Measured) 93.4 ABG O2 Content 9.7 L* ABG Base Excess 1.4 Jose Luis Test Positive O2 Delivery Device N/c Oxygen Flow Rate 5l Vent Mode Vent Rate Mechanical Rate PEEP 0.0 Pressure Support Vent Sodium 140 Potassium 3.9 Chloride 106 Carbon Dioxide 26 Anion Gap 8 BUN 21 H Creatinine 0.8 Creat Clearance w eGFR > 60 Random Glucose 116 H Lactic Acid Calcium 6.9 L* Phosphorus 2.5 Magnesium 2.2 Total Bilirubin 3.7 H Direct Bilirubin 3.0 H GGT AST 36 ALT 67 D Alkaline Phosphatase 73 LD Total Creatine Kinase Troponin I B-Natriuretic Peptide Total Protein 4.1 L Albumin 1.2 L Total Amylase Lipase Urine Color Urine Appearance Urine pH Ur Specific [place] Urine Protein Urine Glucose (UA) Urine Ketones Urine Blood Urine Nitrite Urine Bilirubin Urine Urobilinogen Ur Leukocyte Esterase Urine WBC (Auto) Urine RBC (Auto) Urine RBC Urine WBC Ur Epithelial Cells Urine Bacteria Urine Mucus Stool Occult Blood Alcohol, Quantitative Hepatitis A IgM Ab Hep Bs Antigen Hep B Core IgM Ab Hepatitis C Antibody Blood Type Antibody Screen Crossmatch 06/28/17 06/29/17 06/29/17 05:40 06:00 06:00 WBC 2.8 L 2.4 L RBC 2.47 L 2.46 L Hgb 7.3 L 7.3 L Hct 22.3 L 22.2 L MCV 90.2 90.2 MCH 29.4 29.6 MCHC 32.6 32.8 RDW 17.3 H 17.6 H Plt Count 174 184 MPV 8.3 8.2 Total Counted Neutrophils % 89.7 H 92.3 H Neutrophils % (Manual) Band Neutrophils % Lymphocytes % 8.8 D 6.5 L D Lymphocytes % (Manual) Monocytes % 0.9 L 0.7 L Monocytes % (Manual) Eosinophils % 0.3 0.3 Eosinophils % (Manual) Basophils % 0.3 0.2 Basophils % (Manual) Myelocytes % (Man) Promyelocytes % (Man) Blast Cells % (Manual) Nucleated RBC % Metamyelocytes Hypersegmented Neuts Plasma Cells Smudge Cells Other Cell Type Hypochromia Toxic Granulation Dohle Bodies Yasir Rods Platelet Estimate Platelet Comment Polychromasia Poikilocytosis Basophilic Stippling Anisocytosis Microcytosis Macrocytosis Spherocytes Siderocytes Sickle Cells Target Cells Tear Drop Cells Ovalocytes Stomatocytes Helmet Cells [place] Bodies [place] Rings Aris Cells Acanthocytes (Spur) Rouleaux Fragmented RBCs Schistocytes Haptoglobin PT with INR INR PTT (Actin FS) Anticoagulation Therapy Puncture Site ABG pH ABG pCO2 at Pt Temp ABG pO2 at Pt Temp ABG HCO3 ABG O2 Sat (Measured) ABG O2 Content ABG Base Excess Jose Luis Test O2 Delivery Device Oxygen Flow Rate Vent Mode Vent Rate Mechanical Rate PEEP Pressure Support Vent Sodium 140 Potassium 3.9 Chloride 106 Carbon Dioxide 24 Anion Gap 10 BUN 17 Creatinine 0.8 Creat Clearance w eGFR > 60 Random Glucose 118 H Lactic Acid Calcium 7.1 L Phosphorus 2.3 L Magnesium 2.1 Total Bilirubin 3.7 H Direct Bilirubin 2.9 H GGT AST 30 ALT 57 Alkaline Phosphatase 71 LD Total Creatine Kinase Troponin I B-Natriuretic Peptide Total Protein 4.5 L Albumin 1.3 L Total Amylase Lipase Urine Color Urine Appearance Urine pH Ur Specific [place] Urine Protein Urine Glucose (UA) Urine Ketones Urine Blood Urine Nitrite Urine Bilirubin Urine Urobilinogen Ur Leukocyte Esterase Urine WBC (Auto) Urine RBC (Auto) Urine RBC Urine WBC Ur Epithelial Cells Urine Bacteria Urine Mucus Stool Occult Blood Alcohol, Quantitative Hepatitis A IgM Ab Hep Bs Antigen Hep B Core IgM Ab Hepatitis C Antibody Blood Type Antibody Screen Crossmatch 06/29/17 06/29/17 06/30/17 06:00 13:15 06:00 WBC 2.7 L RBC 2.53 L Hgb 7.4 L Hct 23.1 L MCV 91.3 MCH 29.1 MCHC 31.9 L RDW 17.2 H Plt Count 196 MPV 7.7 Total Counted Neutrophils % 91.8 H Neutrophils % (Manual) Band Neutrophils % Lymphocytes % 6.5 L Lymphocytes % (Manual) Monocytes % 0.8 L Monocytes % (Manual) Eosinophils % 0.5 Eosinophils % (Manual) Basophils % 0.4 Basophils % (Manual) Myelocytes % (Man) Promyelocytes % (Man) Blast Cells % (Manual) Nucleated RBC % Metamyelocytes Hypersegmented Neuts Plasma Cells Smudge Cells Other Cell Type Hypochromia Toxic Granulation Dohle Bodies Yasir Rods Platelet Estimate Platelet Comment Polychromasia Poikilocytosis Basophilic Stippling Anisocytosis Microcytosis Macrocytosis Spherocytes Siderocytes Sickle Cells Target Cells Tear Drop Cells Ovalocytes Stomatocytes Helmet Cells [place] Bodies [place] Rings [place] Cells Acanthocytes (Spur) Rouleaux Fragmented RBCs Schistocytes Haptoglobin PT with INR 15.40 H INR 1.36 H PTT (Actin FS) 31.8 Anticoagulation Therapy Puncture Site ABG pH ABG pCO2 at Pt Temp ABG pO2 at Pt Temp ABG HCO3 ABG O2 Sat (Measured) ABG O2 Content ABG Base Excess Jose Luis Test O2 Delivery Device Oxygen Flow Rate Vent Mode Vent Rate Mechanical Rate PEEP Pressure Support Vent Sodium 140 Potassium 3.8 Chloride 106 Carbon Dioxide 27 Anion Gap 7 L BUN 15 Creatinine 0.8 Creat Clearance w eGFR > 60 Random Glucose 123 H Lactic Acid Calcium 7.3 L Phosphorus Magnesium 2.1 Total Bilirubin 2.6 H D Direct Bilirubin 1.9 H D GGT AST 25 ALT 49 Alkaline Phosphatase 70 LD Total Creatine Kinase Troponin I B-Natriuretic Peptide Total Protein 4.5 L Albumin 1.4 L Total Amylase Lipase Urine Color Urine Appearance Urine pH Ur Specific [place] Urine Protein Urine Glucose (UA) Urine Ketones Urine Blood Urine Nitrite Urine Bilirubin Urine Urobilinogen Ur Leukocyte Esterase Urine WBC (Auto) Urine RBC (Auto) Urine RBC Urine WBC Ur Epithelial Cells Urine Bacteria Urine Mucus Stool Occult Blood Alcohol, Quantitative Hepatitis A IgM Ab Hep Bs Antigen Hep B Core IgM Ab Hepatitis C Antibody Blood Type Antibody Screen Crossmatch 06/30/17 06/30/17 06/30/17 06:00 08:40 18:20 WBC 2.2 L 2.2 L RBC 2.19 L 2.38 L Hgb 6.5 L* D 7.0 L Hct 20.0 L 21.4 L MCV 91.0 89.8 MCH 29.5 29.2 MCHC 32.4 32.5 RDW 17.5 H 17.2 H Plt Count 177 190 MPV 8.1 8.3 Total Counted Neutrophils % 89.3 H 89.6 H Neutrophils % (Manual) Band Neutrophils % Lymphocytes % 9.6 D 9.0 Lymphocytes % (Manual) Monocytes % 0.6 L 0.7 L Monocytes % (Manual) Eosinophils % 0.3 0.5 Eosinophils % (Manual) Basophils % 0.2 0.2 Basophils % (Manual) Myelocytes % (Man) Promyelocytes % (Man) Blast Cells % (Manual) Nucleated RBC % Metamyelocytes Hypersegmented Neuts Plasma Cells Smudge Cells Other Cell Type Hypochromia Toxic Granulation Dohle Bodies Yasir Rods Platelet Estimate Platelet Comment Polychromasia Poikilocytosis Basophilic Stippling Anisocytosis Microcytosis Macrocytosis Spherocytes Siderocytes Sickle Cells Target Cells Tear Drop Cells Ovalocytes Stomatocytes Helmet Cells [place] Bodies [place] Rings Aris Cells Acanthocytes (Spur) Rouleaux Fragmented RBCs Schistocytes Haptoglobin PT with INR INR PTT (Actin FS) Anticoagulation Therapy Puncture Site ABG pH ABG pCO2 at Pt Temp ABG pO2 at Pt Temp ABG HCO3 ABG O2 Sat (Measured) ABG O2 Content ABG Base Excess Jose Luis Test O2 Delivery Device Oxygen Flow Rate Vent Mode Vent Rate Mechanical Rate PEEP Pressure Support Vent Sodium Potassium Chloride Carbon Dioxide Anion Gap BUN Creatinine Creat Clearance w eGFR Random Glucose Lactic Acid Calcium Phosphorus Magnesium Total Bilirubin Direct Bilirubin GGT AST ALT Alkaline Phosphatase LD Total Creatine Kinase Troponin I B-Natriuretic Peptide Total Protein Albumin Total Amylase Lipase Urine Color Urine Appearance Urine pH Ur Specific [place] Urine Protein Urine Glucose (UA) Urine Ketones Urine Blood Urine Nitrite Urine Bilirubin Urine Urobilinogen Ur Leukocyte Esterase Urine WBC (Auto) Urine RBC (Auto) Urine RBC Urine WBC Ur Epithelial Cells Urine Bacteria Urine Mucus Stool Occult Blood Alcohol, Quantitative Hepatitis A IgM Ab Hep Bs Antigen Hep B Core IgM Ab Hepatitis C Antibody Blood Type A POSITIVE Antibody Screen Negative Crossmatch See Detail 07/01/17 07/01/17 07/01/17 01:30 06:00 06:00 WBC 2.4 L RBC 2.70 L Hgb 7.8 L D Hct 23.6 L MCV 87.6 MCH 29.1 MCHC 33.2 RDW 18.7 H Plt Count 177 MPV 7.7 Total Counted Neutrophils % 89.7 H Neutrophils % (Manual) Band Neutrophils % Lymphocytes % 9.0 Lymphocytes % (Manual) Monocytes % 0.5 L Monocytes % (Manual) Eosinophils % 0.6 Eosinophils % (Manual) Basophils % 0.2 Basophils % (Manual) Myelocytes % (Man) Promyelocytes % (Man) Blast Cells % (Manual) Nucleated RBC % Metamyelocytes Hypersegmented Neuts Plasma Cells Smudge Cells Other Cell Type Hypochromia Toxic Granulation Dohle Bodies Yasir Rods Platelet Estimate Platelet Comment Polychromasia Poikilocytosis Basophilic Stippling Anisocytosis Microcytosis Macrocytosis Spherocytes Siderocytes Sickle Cells Target Cells Tear Drop Cells Ovalocytes Stomatocytes Helmet Cells [place] Bodies [place] Rings [place] Cells Acanthocytes (Spur) Rouleaux Fragmented RBCs Schistocytes Haptoglobin PT with INR INR PTT (Actin FS) Anticoagulation Therapy Puncture Site ABG pH ABG pCO2 at Pt Temp ABG pO2 at Pt Temp ABG HCO3 ABG O2 Sat (Measured) ABG O2 Content ABG Base Excess Jose Luis Test O2 Delivery Device Oxygen Flow Rate Vent Mode Vent Rate Mechanical Rate PEEP Pressure Support Vent Sodium 139 Potassium 3.8 Chloride 103 Carbon Dioxide 28 Anion Gap 8 BUN 14 Creatinine 0.8 Creat Clearance w eGFR > 60 Random Glucose 111 H Lactic Acid Calcium 7.2 L Phosphorus Magnesium Total Bilirubin 2.8 H Direct Bilirubin GGT AST 26 ALT 45 Alkaline Phosphatase 66 LD Total Creatine Kinase Troponin I B-Natriuretic Peptide Total Protein 4.6 L Albumin 1.5 L Total Amylase Lipase Urine Color Cristiana Urine Appearance Clear Urine pH 5.0 Ur Specific [place] 1.018 Urine Protein Negative Urine Glucose (UA) Negative Urine Ketones Negative Urine Blood Negative Urine Nitrite Negative Urine Bilirubin Negative Urine Urobilinogen 2.0 Ur Leukocyte Esterase Negative Urine WBC (Auto) Urine RBC (Auto) Urine RBC Urine WBC Ur Epithelial Cells Urine Bacteria Urine Mucus Stool Occult Blood Alcohol, Quantitative Hepatitis A IgM Ab Hep Bs Antigen Hep B Core IgM Ab Hepatitis C Antibody Blood Type Antibody Screen Crossmatch 07/01/17 07/01/17 07/02/17 16:00 16:45 06:00 WBC 2.2 L RBC 2.59 L Hgb 7.5 L Hct 22.9 L MCV 88.1 MCH 28.9 MCHC 32.8 RDW 18.8 H Plt Count 203 MPV 8.6 D Total Counted Neutrophils % 87.0 H Neutrophils % (Manual) Band Neutrophils % Lymphocytes % 11.0 D Lymphocytes % (Manual) Monocytes % 0.9 L Monocytes % (Manual) Eosinophils % 0.9 Eosinophils % (Manual) Basophils % 0.2 Basophils % (Manual) Myelocytes % (Man) Promyelocytes % (Man) Blast Cells % (Manual) Nucleated RBC % Metamyelocytes Hypersegmented Neuts Plasma Cells Smudge Cells Other Cell Type Hypochromia Toxic Granulation Dohle Bodies Yasir Rods Platelet Estimate Platelet Comment Polychromasia Poikilocytosis Basophilic Stippling Anisocytosis Microcytosis Macrocytosis Spherocytes Siderocytes Sickle Cells Target Cells Tear Drop Cells Ovalocytes Stomatocytes Helmet Cells [place] Bodies [place] Rings [place] Cells Acanthocytes (Spur) Rouleaux Fragmented RBCs Schistocytes Haptoglobin PT with INR INR PTT (Actin FS) Anticoagulation Therapy Puncture Site ABG pH ABG pCO2 at Pt Temp ABG pO2 at Pt Temp ABG HCO3 ABG O2 Sat (Measured) ABG O2 Content ABG Base Excess Jose Luis Test O2 Delivery Device Oxygen Flow Rate Vent Mode Vent Rate Mechanical Rate PEEP Pressure Support Vent Sodium 140 Potassium 3.9 Chloride 104 Carbon Dioxide 29 Anion Gap 7 L BUN 12 Creatinine 0.8 Creat Clearance w eGFR > 60 Random Glucose 103 Lactic Acid Calcium 7.1 L Phosphorus Magnesium Total Bilirubin 1.7 H D Direct Bilirubin GGT AST 42 H D ALT 48 Alkaline Phosphatase 57 LD Total Creatine Kinase Troponin I B-Natriuretic Peptide 5131.16 H Total Protein 4.2 L Albumin 1.4 L Total Amylase Lipase Urine Color Cristiana Urine Appearance Slcloudy Urine pH 5.0 Ur Specific [place] 1.027 Urine Protein 1+ H Urine Glucose (UA) Negative Urine Ketones Negative Urine Blood Negative Urine Nitrite Negative Urine Bilirubin Negative Urine Urobilinogen Negative Ur Leukocyte Esterase Negative Urine WBC (Auto) 5 Urine RBC (Auto) 2 Urine RBC Urine WBC Ur Epithelial Cells Rare Urine Bacteria Urine Mucus Rare Stool Occult Blood Alcohol, Quantitative Hepatitis A IgM Ab Hep Bs Antigen Hep B Core IgM Ab Hepatitis C Antibody Blood Type Antibody Screen Crossmatch 07/02/17 07/02/17 07/02/17 06:00 13:00 19:30 WBC 1.8 L* 2.3 L RBC 2.35 L 2.78 L Hgb 6.9 L* 8.2 L D Hct 20.5 L 24.5 L D MCV 87.4 88.2 MCH 29.3 29.6 MCHC 33.5 33.5 RDW 18.3 H 17.2 H Plt Count 157 D 186 MPV 8.1 8.8 Total Counted Neutrophils % 85.7 H 88.3 H Neutrophils % (Manual) Band Neutrophils % Lymphocytes % 12.4 9.9 D Lymphocytes % (Manual) Monocytes % 0.9 L 1.0 L Monocytes % (Manual) Eosinophils % 0.7 0.6 Eosinophils % (Manual) Basophils % 0.3 0.2 Basophils % (Manual) Myelocytes % (Man) Promyelocytes % (Man) Blast Cells % (Manual) Nucleated RBC % Metamyelocytes Hypersegmented Neuts Plasma Cells Smudge Cells Other Cell Type Hypochromia 1+ Toxic Granulation Dohle Bodies Yasir Rods Platelet Estimate Platelet Comment Polychromasia Poikilocytosis Basophilic Stippling Anisocytosis 3+ Microcytosis 2+ Macrocytosis Few Spherocytes Siderocytes Sickle Cells Target Cells Tear Drop Cells Ovalocytes Stomatocytes Helmet Cells [place] Bodies [place] Rings [place] Cells Acanthocytes (Spur) Rouleaux Fragmented RBCs Schistocytes Haptoglobin PT with INR INR PTT (Actin FS) Anticoagulation Therapy Puncture Site ABG pH ABG pCO2 at Pt Temp ABG pO2 at Pt Temp ABG HCO3 ABG O2 Sat (Measured) ABG O2 Content ABG Base Excess Jose Luis Test O2 Delivery Device Oxygen Flow Rate Vent Mode Vent Rate Mechanical Rate PEEP Pressure Support Vent Sodium Potassium Chloride Carbon Dioxide Anion Gap BUN Creatinine Creat Clearance w eGFR Random Glucose Lactic Acid Calcium Phosphorus Magnesium Total Bilirubin Direct Bilirubin GGT AST ALT Alkaline Phosphatase LD Total Creatine Kinase Troponin I B-Natriuretic Peptide Total Protein Albumin Total Amylase Lipase Urine Color Urine Appearance Urine pH Ur Specific [place] Urine Protein Urine Glucose (UA) Urine Ketones Urine Blood Urine Nitrite Urine Bilirubin Urine Urobilinogen Ur Leukocyte Esterase Urine WBC (Auto) Urine RBC (Auto) Urine RBC Urine WBC Ur Epithelial Cells Urine Bacteria Urine Mucus Stool Occult Blood Cancelled Alcohol, Quantitative Hepatitis A IgM Ab Hep Bs Antigen Hep B Core IgM Ab Hepatitis C Antibody Blood Type Antibody Screen Crossmatch 07/03/17 07/03/17 07/03/17 02:15 06:30 06:30 WBC 2.1 L RBC 2.64 L Hgb 7.9 L Hct 23.5 L MCV 89.0 MCH 29.7 MCHC 33.4 RDW 17.5 H Plt Count 169 MPV 8.2 Total Counted Neutrophils % 88.5 H Neutrophils % (Manual) Band Neutrophils % Lymphocytes % 9.9 Lymphocytes % (Manual) Monocytes % 0.7 L Monocytes % (Manual) Eosinophils % 0.5 Eosinophils % (Manual) Basophils % 0.4 Basophils % (Manual) Myelocytes % (Man) Promyelocytes % (Man) Blast Cells % (Manual) Nucleated RBC % Metamyelocytes Hypersegmented Neuts Plasma Cells Smudge Cells Other Cell Type Hypochromia Toxic Granulation Dohle Bodies Yasir Rods Platelet Estimate Platelet Comment Polychromasia Poikilocytosis Basophilic Stippling Anisocytosis Microcytosis Macrocytosis Spherocytes Siderocytes Sickle Cells Target Cells Tear Drop Cells Ovalocytes Stomatocytes Helmet Cells [place] Bodies [place] Rings [place] Cells Acanthocytes (Spur) Rouleaux Fragmented RBCs Schistocytes Haptoglobin PT with INR INR PTT (Actin FS) Anticoagulation Therapy Puncture Site ABG pH ABG pCO2 at Pt Temp ABG pO2 at Pt Temp ABG HCO3 ABG O2 Sat (Measured) ABG O2 Content ABG Base Excess Jose Luis Test O2 Delivery Device Oxygen Flow Rate Vent Mode Vent Rate Mechanical Rate PEEP Pressure Support Vent Sodium 139 Potassium 3.8 Chloride 103 Carbon Dioxide 29 Anion Gap 7 L BUN 13 Creatinine 0.8 Creat Clearance w eGFR > 60 Random Glucose 110 H Lactic Acid Calcium 7.2 L Phosphorus Magnesium Total Bilirubin 2.0 H Direct Bilirubin GGT AST 55 H D ALT 63 D Alkaline Phosphatase 59 LD Total Creatine Kinase Troponin I B-Natriuretic Peptide Total Protein 4.6 L Albumin 1.6 L Total Amylase Lipase Urine Color Urine Appearance Urine pH Ur Specific [place] Urine Protein Urine Glucose (UA) Urine Ketones Urine Blood Urine Nitrite Urine Bilirubin Urine Urobilinogen Ur Leukocyte Esterase Urine WBC (Auto) Urine RBC (Auto) Urine RBC Urine WBC Ur Epithelial Cells Urine Bacteria Urine Mucus Stool Occult Blood Negative Alcohol, Quantitative Hepatitis A IgM Ab Hep Bs Antigen Hep B Core IgM Ab Hepatitis C Antibody Blood Type Antibody Screen Crossmatch 07/03/17 13:13 WBC 2.1 L RBC 2.95 L Hgb 8.5 L Hct 26.0 L MCV 88.1 MCH 29.0 MCHC 32.9 RDW 17.8 H Plt Count 171 MPV 8.0 Total Counted Neutrophils % 86.0 H Neutrophils % (Manual) Band Neutrophils % Lymphocytes % 12.2 D Lymphocytes % (Manual) Monocytes % 0.7 L Monocytes % (Manual) Eosinophils % 0.7 Eosinophils % (Manual) Basophils % 0.4 Basophils % (Manual) Myelocytes % (Man) Promyelocytes % (Man) Blast Cells % (Manual) Nucleated RBC % Metamyelocytes Hypersegmented Neuts Plasma Cells Smudge Cells Other Cell Type Hypochromia Toxic Granulation Dohle Bodies Yasir Rods Platelet Estimate Platelet Comment Polychromasia Poikilocytosis Basophilic Stippling Anisocytosis Microcytosis Macrocytosis Spherocytes Siderocytes Sickle Cells Target Cells Tear Drop Cells Ovalocytes Stomatocytes Helmet Cells [place] Bodies [place] Rings [place]is Cells Acanthocytes (Spur) Rouleaux Fragmented RBCs Schistocytes Haptoglobin PT with INR INR PTT (Actin FS) Anticoagulation Therapy Puncture Site ABG pH ABG pCO2 at Pt Temp ABG pO2 at Pt Temp ABG HCO3 ABG O2 Sat (Measured) ABG O2 Content ABG Base Excess Jose Luis Test O2 Delivery Device Oxygen Flow Rate Vent Mode Vent Rate Mechanical Rate PEEP Pressure Support Vent Sodium Potassium Chloride Carbon Dioxide Anion Gap BUN Creatinine Creat Clearance w eGFR Random Glucose Lactic Acid Calcium Phosphorus Magnesium Total Bilirubin Direct Bilirubin GGT AST ALT Alkaline Phosphatase LD Total Creatine Kinase Troponin I B-Natriuretic Peptide Total Protein Albumin Total Amylase Lipase Urine Color Urine Appearance Urine pH Ur Specific [place] Urine Protein Urine Glucose (UA) Urine Ketones Urine Blood Urine Nitrite Urine Bilirubin Urine Urobilinogen Ur Leukocyte Esterase Urine WBC (Auto) Urine RBC (Auto) Urine RBC Urine WBC Ur Epithelial Cells Urine Bacteria Urine Mucus Stool Occult Blood Alcohol, Quantitative Hepatitis A IgM Ab Hep Bs Antigen Hep B Core IgM Ab Hepatitis C Antibody Blood Type Antibody Screen Crossmatch Problem List - Problems (1) Anemia Code(s): D64.9 - ANEMIA, UNSPECIFIED (2) 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 DUCT (3) Hepatitis Code(s): K75.9 - INFLAMMATORY LIVER DISEASE, UNSPECIFIED (4) Pneumonia Code(s): J18.9 - PNEUMONIA, UNSPECIFIED ORGANISM Qualifiers: Pneumonia type: due to unspecified organism Laterality: left Lung location: unspecified part of lung Qualified Code(s): J18.9 - Pneumonia, unspecified organism (5) Septic shock Code(s): A41.9 - SEPSIS, UNSPECIFIED ORGANISM; R65.21 - SEVERE SEPSIS WITH SEPTIC SHOCK (6) Transaminitis Code(s): R74.0 - NONSPEC ELEV OF LEVELS OF TRANSAMNS & LACTIC ACID DEHYDRGNSE Assessment/Plan anemia, hairy cell leukemia, colon polyp, HTN edema chf PHT mildly reduced ef cholecystatis Plan bnp elevated agree with Lasix hct better post prbc transfusion would benefit from MIBI st when anemia corrected - most likely to be done as outpatient. will f/u
--- NOTE | 2017-07-03 16:23 | PN ---
Physical Exam: SUBJECTIVE: Patient seen and examined at the bedside. Patient is sitting in the chair, in no acute distress. On supplemental oxygen at 2 liters. OBJECTIVE: Respiratory pre and post shows 88% room air with ambulation Patient is unable to be discharged home since he is unable to ambulate more than 30 feet with a waddling gait, high fall risk Family is reviewing local rehab facilities. Not a safe home discharge at this time secondary to worsening mobility. Vital Signs Period Temp Pulse Resp BP Sys/Puentes Pulse Ox Last 24 Hr 97.8 F-98.1 F 88-118 18-20 99-126/52-68 90-97 GENERAL: The patient is awake, alert, and fully oriented HEAD: Normal with no signs of trauma. EYES: PERRL, extraocular movements intact, sclera anicteric, conjunctiva clear. No ptosis. ENT: Ears normal, nares patent, oropharynx clear without exudates, moist mucous membranes. NECK: Trachea midline, full range of motion, supple. LUNGS: fine crackles at bilateral bases with improvement HEART: Regular rate and rhythm, S1, S2 without murmur, rub or gallop. ABDOMEN: soft, nontender, mildly distended, +bowel sounds EXTREMITIES: +1 bilateral lower ext edema, bilateral hand edema NEUROLOGICAL: Normal speech, gait not observed. PSYCH: Normal mood, normal affect. SKIN: Warm, dry, normal turgor, no rashes or lesions noted Laboratory Results - last 24 hr 06/30/17 07/02/17 07/02/17 08:40 13:00 19:30 WBC 2.3 L RBC 2.78 L Hgb 8.2 L D Hct 24.5 L D MCV 88.2 MCH 29.6 MCHC 33.5 RDW 17.2 H Plt Count 186 MPV 8.8 Neutrophils % 88.3 H Lymphocytes % 9.9 D Monocytes % 1.0 L Eosinophils % 0.6 Basophils % 0.2 Sodium Potassium Chloride Carbon Dioxide Anion Gap BUN Creatinine Creat Clearance w eGFR Random Glucose Calcium Total Bilirubin AST ALT Alkaline Phosphatase Total Protein Albumin Stool Occult Blood Cancelled Blood Type A POSITIVE Antibody Screen Negative Crossmatch See Detail 07/03/17 07/03/17 07/03/17 02:15 06:30 06:30 WBC 2.1 L RBC 2.64 L Hgb 7.9 L Hct 23.5 L MCV 89.0 MCH 29.7 MCHC 33.4 RDW 17.5 H Plt Count 169 MPV 8.2 Neutrophils % 88.5 H Lymphocytes % 9.9 Monocytes % 0.7 L Eosinophils % 0.5 Basophils % 0.4 Sodium 139 Potassium 3.8 Chloride 103 Carbon Dioxide 29 Anion Gap 7 L BUN 13 Creatinine 0.8 Creat Clearance w eGFR > 60 Random Glucose 110 H Calcium 7.2 L Total Bilirubin 2.0 H AST 55 H D ALT 63 D Alkaline Phosphatase 59 Total Protein 4.6 L Albumin 1.6 L Stool Occult Blood Negative Blood Type Antibody Screen Crossmatch 07/03/17 13:13 WBC 2.1 L RBC 2.95 L Hgb 8.5 L Hct 26.0 L MCV 88.1 MCH 29.0 MCHC 32.9 RDW 17.8 H Plt Count 171 MPV 8.0 Neutrophils % 86.0 H Lymphocytes % 12.2 D Monocytes % 0.7 L Eosinophils % 0.7 Basophils % 0.4 Sodium Potassium Chloride Carbon Dioxide Anion Gap BUN Creatinine Creat Clearance w eGFR Random Glucose Calcium Total Bilirubin AST ALT Alkaline Phosphatase Total Protein Albumin Stool Occult Blood Blood Type Antibody Screen Crossmatch Active Medications Generic Name Dose Route Start Last Admin Trade Name Freq PRN Reason Stop Dose Admin Albuterol/Ipratropium 1 amp 06/28/17 18:00 07/03/17 12:22 Duoneb - NEB 1 amp QIDR JIHAN Administration Amoxicillin/Clavulanate Potassium 1 tab 07/03/17 15:15 Augmentin - 875mg Tablet PO BID@0800,1730 JIHAN Furosemide 20 mg 07/02/17 17:30 07/03/17 09:15 Lasix - PO 20 mg DAILY JIHAN Administration Pantoprazole Sodium 40 mg 06/28/17 22:00 07/03/17 09:15 Protonix - PO 40 mg BID JIHAN Administration ASSESSMENT/PLAN: Patient is an 82 year old male with a significant past medical history of anemia , hairy cell leukemia, colon polyp and hypertension. He presented to the ED on 06/24/2017 with general malaise, lethargy and cough. According to the ED notes, pt was seen by his PCP but his symptoms progressively became worse. Pt also reports discolored urine at home, states patient was having hematuria. He is s/p ICU transfer for septic shock. ID: Septic shock secondary to pneumonia, resolved Pneumonia in an immunosupressed pt, improving ANC calculated @ 2036 Respiratory status improving, titrating off oxygen as tolerated, now on 2 liters (previously on 5 liters) Pneumonia improving, transitioned to Augmentin PO by ID Blood pressure low stable at this time Duonebs scheduled QID Incentive spirometer GI: Elevated AST/ALT, improving Monitor trend hepatitis panel reviewed : Hematuria ruled out Repeat UA does not show blood in urine UC negative Renal ultrasound reviewed Urology notes reviewed, will need outpatient follow up Hematology: Anemia, acute on chronic Anemia with fatigue and shortness of breath and generalized weakness, improving Likely secondary to leukemia vs. GI source (but occult stool negative x 2) S/p 3 units of prbc during admission hmg/hct now stable CBC after blood transfusion Cardiology: Hypertension, with episodes of hypotension Echo shows LV systolic is moderate to severely reduced LA mildly dilated, mild MR, mod TR, RV systolic p ressure elevated, moderate aortic scheloris, trivial pericardial effusion On home Propanalol which is on hold for hypotension On Lasix 20mg daily Oncology: Hairy cell leukemia, chronic Oncology following F.E.N. Fluids: monitor off IVF Electrolytes: corrected calcium 9.3, phos 2.3: monitor Nutrition: regular diet Prophyalxis: DVT: No a/c secondary to anemia, SCDs when in bed, PT to continue to ambulate GI: Protonix BID Disposition: Patient is unable to be discharged home since he is unable to ambulate more than 30 feet with a waddling gait, high fall risk Family is reviewing local rehab facilities. Not a safe home discharge at this time secondary to worsening mobility. Visit type - Emergency Visit Emergency Visit: Yes ED Registration Date: 06/24/17 Care time: The patient presented to the Emergency Department on the above date and was hospitalized for further evaluation of their emergent condition. - New Patient This patient is new to me today: No - Critical Care Critical Care patient: No - Discharge Referral Referred to [facility] No
[2017-07-03] MEDS: AMOX TR/POT CLAV 875MG/125MG TABLETS (FP) PO SCH ×2 (17:28)
[2017-07-04 08:06] LABS: BASOPHIL 0.2 % (0-2.0); EOSINOPHIL 0.6 % (0-4.5); MCH 29.3 pg (25.7-33.7); MEAN CELL VOLUME 88.8 fl (80-96); MEAN PLT VOLUME 7.9 fl (7.5-11.1); NEUTROPHILS 85.1 % (42.8-82.8); PLATELET COUNT 171 K/MM3 (134-434); RDW 17.3 % (11.9-15.9)
[2017-07-04 08:26] LABS: ALBUMIN 1.8 g/dl (3.4-5.0); ANION GAP 8 (8-16); CO2 29 mmol/L (21-32); CREATININE 0.8 mg/dL (0.7-1.3); GLUCOSE,RANDOM 101 mg/dL (74-106); SGOT/AST 74 U/L (15-37); SGPT/ALT 83 U/L (12-78)
[2017-07-04 08:28] LABS: ALK PHOS 59 U/L (45-117); BILIRUBIN,TOTAL 1.4 mg/dL (0.2-1.0); CALCIUM 7.8 mg/dL (8.5-10.1); TOT PROT 4.9 g/dl (6.4-8.2)
[2017-07-04] MEDS: AMOX TR/POT CLAV 875MG/125MG TABLETS (FP) PO SCH ×2 (08:37→17:11)
--- NOTE | 2017-07-04 09:36 | PN ---
Progress Note, Physician Chief Complaint: fells better after transfusion History of Present Illness: This is an 82 year old male with a past medical history of anemia, hairy cell leukemia, colon polyp, HTN who presented to the ED with general malaise, lethargy and cough. He was seen by his PCP one week ago who felt it was viral but when his symptoms became worse he went to his PCP again today who noted low oxygen sat and sent pt to the ED. Pt also reports discolored urine last week, states it was red and so it must be blood. Upon exam pt remains lethargic, mild cough. Pt states cough is productive of yellow phlegm. pt denies abdominal pain , diarrhea, vomiting, constipation, change in color or consistency of stool. - Current Medication List Current Medications: Active Medications Amoxicillin/Clavulanate Potassium (Augmentin - 875mg Tablet) 1 tab PO BID@0800, 1730 [facility] Last Admin: 07/04/17 08:37 Dose: 1 tab Furosemide (Lasix -) 20 mg PO DAILY [facility] Last Admin: 07/03/17 09:15 Dose: 20 mg Pantoprazole Sodium (Protonix -) 40 mg PO BID [facility] Last Admin: 07/03/17 21:17 Dose: 40 mg - Objective Vital Signs: Vital Signs Temperature 97.9 F 07/04/17 09:19 Pulse Rate 94 H 07/04/17 09:19 Respiratory Rate 20 07/04/17 09:19 Blood Pressure 119/61 07/04/17 09:19 O2 Sat by Pulse Oximetry (%) 94 L 07/04/17 09:00 Eyes: Yes: WNL, Conjunctiva Clear, EOM Intact HENT: Yes: WNL, Atraumatic, Normocephalic Neck: Yes: WNL, Supple, Trachea Midline Cardiovascular: Yes: WNL, Regular Rate and Rhythm Respiratory: Yes: WNL, Regular, CTA Bilaterally Gastrointestinal: Yes: WNL, Normal Bowel Sounds Genitourinary: Yes: WNL Musculoskeletal: Yes: WNL Extremities: Yes: WNL Edema: Yes Integumentary: Yes: WNL Neurological: Yes: WNL, Alert, Oriented ...Motor Strength: WNL Psychiatric: Yes: WNL Labs: CBC, BMP 07/04/17 06:00 07/04/17 06:00 INR, PTT INR 1.36 (0.82-1.09) H 06/29/17 06:00 Problem List - Problems (1) Anemia Code(s): D64.9 - ANEMIA, UNSPECIFIED (2) 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 DUCT (3) Hepatitis Code(s): K75.9 - INFLAMMATORY LIVER DISEASE, UNSPECIFIED (4) Pneumonia Code(s): J18.9 - PNEUMONIA, UNSPECIFIED ORGANISM Qualifiers: Pneumonia type: due to unspecified organism Laterality: left Lung location: unspecified part of lung Qualified Code(s): J18.9 - Pneumonia, unspecified organism (5) Septic shock Code(s): A41.9 - SEPSIS, UNSPECIFIED ORGANISM; R65.21 - SEVERE SEPSIS WITH SEPTIC SHOCK (6) Transaminitis Code(s): R74.0 - NONSPEC ELEV OF LEVELS OF TRANSAMNS & LACTIC ACID DEHYDRGNSE Assessment/Plan anemia, hairy cell leukemia, colon polyp, HTN edema chf PHT mildly reduced ef cholecystatis Plan bnp elevated agree with Lasix hct better post prbc transfusion would benefit from MIBI st when anemia corrected - most likely to be done as outpatient. will f/u
[2017-07-04] MEDS: PANTOPRAZOLE 40 MG TABLET (FP) PO SCH ×2 (09:47→21:44)
[2017-07-04] MEDS: FUROSEMIDE 20 MG TABLET (FP) PO SCH (09:47)
--- NOTE | 2017-07-04 18:48 | PN ---
Physical Exam: SUBJECTIVE: Patient seen and examined. He feels well, hed like to go home, but understands if SNF is recommended OBJECTIVE: Vital Signs Period Temp Pulse Resp BP Sys/Puentes Pulse Ox Last 24 Hr 97.6 F-98.3 F 94-104 20-20 98-123/47-86 94-95 PE Neuro: alert,awake, cn 2-12intact Pulm: bibasilar crackles, L>R + NC CV: s1 s2 rrr no mrg Abd: s nt nd + bs Ext: warm, no le edema Laboratory Results - last 24 hr 06/30/17 07/04/17 07/04/17 08:40 06:00 06:00 WBC 2.0 L RBC 2.88 L Hgb 8.4 L Hct 25.6 L MCV 88.8 MCH 29.3 MCHC 33.0 RDW 17.3 H Plt Count 171 MPV 7.9 Neutrophils % 85.1 H Lymphocytes % 13.4 Monocytes % 0.7 L Eosinophils % 0.6 Basophils % 0.2 Sodium 140 Potassium 3.9 Chloride 103 Carbon Dioxide 29 Anion Gap 8 BUN 11 Creatinine 0.8 Creat Clearance w eGFR > 60 Random Glucose 101 Calcium 7.8 L Total Bilirubin 1.4 H D AST 74 H D ALT 83 H D Alkaline Phosphatase 59 Total Protein 4.9 L Albumin 1.8 L Blood Type A POSITIVE Antibody Screen Negative Crossmatch See Detail Active Medications Generic Name Dose Route Start Last Admin Trade Name Freq PRN Reason Stop Dose Admin Amoxicillin/Clavulanate Potassium 1 tab 07/03/17 15:15 07/04/17 17:11 Augmentin - 875mg Tablet PO 1 tab BID@0800,1730 JIHAN Administration Furosemide 20 mg 07/02/17 17:30 07/04/17 09:47 Lasix - PO 20 mg DAILY JIHAN Administration Pantoprazole Sodium 40 mg 06/28/17 22:00 07/04/17 09:47 Protonix - PO 40 mg BID JIHAN Administration Assessment: 82 year old male with pmhx of anemia, hairy cell leukemia, colon polyp and hypertension admitted with general malaise, lethargy, cough. He became hypotensive and lethargic yesterday and was transferred to the ICU and started on pressors, now off and ready for snf. Plan: 1. Septic shock 2/2 community acquired pneumonia - On PO augmentin 2. Transaminitis - AST/ALT increased today - Elevated possibly 2/2 congestion/septic shock sequela - Hepatitis A,B panel negative - HCV negative 3. Acute on chronic anemia - Hbg stabilized - Received 3uPRBC this admission - Transfuse if Hgb <7 4. Severely LV systolic dysfunction - Restart home dose propanolol 160mg daily for tachycardia - Lasix 20mg daily - JAMES/Spironolactone on hold 5. Hairy cell leukemia - Management per oncology 6. Prophylaxis - Heparin 5,000u sq bid 7. Dispo - SNF Thursday CODE STATUS: FULL CODE Visit type - Emergency Visit Emergency Visit: Yes ED Registration Date: 06/24/17 Care time: The patient presented to the Emergency Department on the above date and was hospitalized for further evaluation of their emergent condition. - New Patient This patient is new to me today: Yes Date on this admission: 07/04/17 - Critical Care Critical Care patient: No
[2017-07-04] MEDS: PROPRANOLOL HCL 40 MG TABLET PO SCH (21:44)
[2017-07-05] MEDS: AMOX TR/POT CLAV 875MG/125MG TABLETS (FP) PO SCH (08:20)
[2017-07-05 08:27] LABS: BASOPHIL 0.4 % (0-2.0); EOSINOPHIL 1.1 % (0-4.5); MCH 29.4 pg (25.7-33.7); MEAN CELL VOLUME 89.3 fl (80-96); MEAN PLT VOLUME 7.8 fl (7.5-11.1); NEUTROPHILS 83.2 % (42.8-82.8); PLATELET COUNT 175 K/MM3 (134-434); RDW 17.9 % (11.9-15.9)
[2017-07-05] MEDS ORDERED: PT OWN MED DRAWER 7, Y5N ONE (09:18)
[2017-07-05] MEDS: FUROSEMIDE 20 MG TABLET (FP) PO SCH (09:24)
[2017-07-05] MEDS: PANTOPRAZOLE 40 MG TABLET (FP) PO SCH (09:24)
[2017-07-05] MEDS: PROPRANOLOL HCL 40 MG TABLET PO SCH (09:24)
--- NOTE | 2017-07-05 09:55 | PN ---
Progress Note, Physician Chief Complaint: fells better after transfusion History of Present Illness: This is an 82 year old male with a past medical history of anemia, hairy cell leukemia, colon polyp, HTN who presented to the ED with general malaise, lethargy and cough. He was seen by his PCP one week ago who felt it was viral but when his symptoms became worse he went to his PCP again today who noted low oxygen sat and sent pt to the ED. Pt also reports discolored urine last week, states it was red and so it must be blood. Upon exam pt remains lethargic, mild cough. Pt states cough is productive of yellow phlegm. pt denies abdominal pain , diarrhea, vomiting, constipation, change in color or consistency of stool. - Current Medication List Current Medications: Active Medications Amoxicillin/Clavulanate Potassium (Augmentin - 875mg Tablet) 1 tab PO BID@0800, 1730 [facility] Last Admin: 07/05/17 08:20 Dose: 1 tab Furosemide (Lasix -) 20 mg PO DAILY [facility] Last Admin: 07/05/17 09:24 Dose: 20 mg Pantoprazole Sodium (Protonix -) 40 mg PO BID [facility] Last Admin: 07/05/17 09:24 Dose: 40 mg Propranolol HCl (Inderal -) 160 mg PO BID [facility] Last Admin: 07/05/17 09:24 Dose: 160 mg - Objective Vital Signs: Vital Signs Temperature 98.4 F 07/05/17 06:00 Pulse Rate 73 07/05/17 06:00 Respiratory Rate 20 07/05/17 06:00 Blood Pressure 104/48 07/05/17 06:00 O2 Sat by Pulse Oximetry (%) 95 07/04/17 21:00 Eyes: Yes: WNL, Conjunctiva Clear, EOM Intact HENT: Yes: WNL, Atraumatic, Normocephalic Neck: Yes: WNL, Supple, Trachea Midline Cardiovascular: Yes: WNL, Regular Rate and Rhythm Respiratory: Yes: WNL, Regular, CTA Bilaterally Gastrointestinal: Yes: WNL, Normal Bowel Sounds Genitourinary: Yes: WNL Musculoskeletal: Yes: WNL Extremities: Yes: WNL Edema: Yes Integumentary: Yes: WNL Neurological: Yes: WNL, Alert, Oriented ...Motor Strength: WNL Psychiatric: Yes: WNL Labs: CBC, BMP 07/05/17 06:00 11/18/17 06:00 INR, PTT INR 1.36 (0.82-1.09) H 06/29/17 06:00 Problem List - Problems (1) Anemia Code(s): D64.9 - ANEMIA, UNSPECIFIED (2) 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 DUCT (3) Hepatitis Code(s): K75.9 - INFLAMMATORY LIVER DISEASE, UNSPECIFIED (4) Pneumonia Code(s): J18.9 - PNEUMONIA, UNSPECIFIED ORGANISM Qualifiers: Pneumonia type: due to unspecified organism Laterality: left Lung location: unspecified part of lung Qualified Code(s): J18.9 - Pneumonia, unspecified organism (5) Septic shock Code(s): A41.9 - SEPSIS, UNSPECIFIED ORGANISM; R65.21 - SEVERE SEPSIS WITH SEPTIC SHOCK (6) Transaminitis Code(s): R74.0 - NONSPEC ELEV OF LEVELS OF TRANSAMNS & LACTIC ACID DEHYDRGNSE Assessment/Plan anemia, hairy cell leukemia, colon polyp, HTN edema chf PHT mildly reduced ef cholecystatis Plan bnp elevated agree with Lasix hct better post prbc transfusion would benefit from MIBI st when anemia corrected - most likely to be done as outpatient. will f/u
[2017-07-05 10:31] VITALS: BP 112/61; PULSE 76; TEMP 98.7
--- NOTE | 2017-07-05 14:33 | DS ---
Physical Exam: SUBJECTIVE: Patient seen and examined. He feels well, he is walking, and eager to go home. Family at bedside. OBJECTIVE: Vital Signs Period Temp Pulse Resp BP Sys/Puentes Pulse Ox Last 24 Hr 97.9 F-98.7 F 73-104 20-20 104-122/48-86 95-97 PE Neuro: alert,awake, cn 2-12intact Pulm: bibasilar crackles, L>R + NC CV: s1 s2 rrr no mrg Abd: s nt nd + bs Ext: warm, trace le edema Laboratory Results - last 24 hr 06/30/17 07/05/17 08:40 06:00 WBC 2.0 L RBC 2.68 L Hgb 7.9 L Hct 23.9 L MCV 89.3 MCH 29.4 MCHC 33.0 RDW 17.9 H Plt Count 175 MPV 7.8 Neutrophils % 83.2 H Lymphocytes % 14.4 Monocytes % 0.9 L Eosinophils % 1.1 D Basophils % 0.4 Blood Type A POSITIVE Antibody Screen Negative Crossmatch See Detail HOSPITAL COURSE: Date of Admission:06/24/17 Date of Discharge: 07/05/17 Minutes to complete discharge: 37 Discharge Summary Reason For Visit: PNEUMONIA Current Active Problems Anemia (Acute) Cholestasis (Acute) Hepatitis (Acute) Pneumonia (Acute) Septic shock (Acute) Transaminitis (Acute) Hospital Course: Initial Hospital Course: Briefly, this 82 year old male with pmhx of anemia, hairy cell leukemia, colon polyp, HTN presented to the ED with general malaise, lethargy and cough. Seen by his PCP one week prior to admission w/ a viral dx, his symptoms worsened and noted to be hypoxic. Patient had productive, yellow phlegm. Subsequent Hospital Course/Progress Note/DC Summary: Assessment: 82 year old male with pmhx of anemia, hairy cell leukemia, colon polyp and hypertension admitted with general malaise, lethargy, cough. Hospital course complicated by septic shock with ICU transfer and started on pressors, now off, stable on floor, completed IV abx course and ready for home. Plan: 1. Septic shock 2/2 community acquired pneumonia - On PO augmentin x3 days, home with 1 day remaining - Completed azithro/zosyn x 7days - Per pre and post respiratory evaluation, pt requiring home oxygenation to maintain therapeutic levels, referral made 2. Transaminitis - Improved - Elevated possibly 2/2 congestion/septic shock sequela - Hepatitis A,B panel negative - HCV negative 3. Acute on chronic anemia - Hbg stabilized - Received 3uPRBC this admission - Transfuse if Hgb <7 - Heme/onc outpt f/u 4. Severely LV systolic dysfunction - Restart home dose propanolol 160mg daily for tachycardia - Lasix 20mg daily - Cardiology follow up, referral enclosed for stress 5. Hairy cell leukemia - Management per oncology 6. ?BPH, retention - Resume home tarazosin - Outpt followup urology for cysto Dispo: - Home with [facility], oxygen and meds listed - Referral information for follow up enclosed - Discussed with daughter, she is aware and agrees to above plan Condition: Stable - Instructions Diet, Activity, Other Instructions: Please return to the ED for any new, persistent, or worsening symptoms. Follow up with your PCP in 1 week Take home medications as directed on discharge home meds list Follow up with Dr. Vivas, cardiology, and urology in the next week for continued work up and tests as listed Ambulate with walker daily, do not walk without it- prescription sent to pharmacy Complete antibiotics as directed Referrals: Axel Lynch MD., MD [Staff Physician] - 1 Week (outpatient cysto) Addison Vivas MD [Staff Physician] - 1 Week Demetris Alberto MD [Staff Physician] - 1 Week (outpt stress test follow up ) Disposition: [facility]NS/HOME HEALTH CARE - Home Medications Comprehensive Discharge Medication List: Ambulatory Orders Propranolol HCl [Inderal -] 160 mg PO DAILY 12/31/12 Terazosin HCl [Hytrin] 5 mg PO HS 12/31/12 Amox-Tr/K Cl [Augmentin 875-125mg Tablet -] 1 tab PO BID@0800,1730 #2 tablet Furosemide [Lasix -] 20 mg PO DAILY #30 tablet 07/05/17 Walker [Ultra-Light Rollator] 1 each [facility] DAILY #1 each 07/05/17 This patient is new to me today: No Emergency Visit: Yes ED Registration Date: 06/24/17 Care time: The patient presented to the Emergency Department on the above date and was hospitalized for further evaluation of their emergent condition. Critical Care patient: No - Discharge Referral Referred to [facility] No
== END 2017-07-05 17:30 | disposition home or self-care (01) | DRG 871 ==
LOC: FER 17:23 → FM/S 21:50 → JICU 06-26 02:35 → J7W 06-28 16:37
PROVIDERS: ADMIT Internal Medicine; ATTEND Nurse Practitioner Acute Care
PROC: 05HM33Z Insertion of Infusion Device into Right Internal Jugular Vein, Percutaneous Approach (ICD-10-PCS; principal; 2017-06-26)
PROC: 30233N1 Transfusion of Nonautologous Red Blood Cells into Peripheral Vein, Percutaneous Approach (ICD-10-PCS; 2017-06-26)
DX: A41.9 Sepsis, unspecified organism (principal); R65.21 Severe sepsis with septic shock; J18.9 Pneumonia, unspecified organism; K83.1 Obstruction of bile duct; J96.01 Acute respiratory failure with hypoxia; C91.40 Hairy cell leukemia not having achieved remission; D61.818 Other pancytopenia; N17.9 Acute kidney failure, unspecified; E87.1 Hypo-osmolality and hyponatremia; D64.9 Anemia, unspecified; R74.0 Nonspecific elevation of levels of transaminase and lactic acid dehydrogenase [LDH]; I27.20 Pulmonary hypertension, unspecified; I10 Essential (primary) hypertension; K75.9 Inflammatory liver disease, unspecified; I95.9 Hypotension, unspecified; D72.819 Decreased white blood cell count, unspecified; N40.0 Benign prostatic hyperplasia without lower urinary tract symptoms; K80.20 Calculus of gallbladder without cholecystitis without obstruction; E80.4 Gilbert syndrome
CPT/HCPCS: 36415; 36430; 36600; 71010-TC; 74181-TC; 76705-TC; 76775-TC; 80048; 80053; 80074; 80076; 80307; 81003; 81015; 82040; 82150; 82248; 82272; 82550; 82803; 82977; 83010; 83605; 83615; 83690; 83735; 83880; 84100; 84484; 85025; 85027; 85610; 85730; 86803; 86850; 86900; 86901; 86922; 87040; 87086; 87804; 87899; 93005; 93306-TC; 94010; 94640; 94761; 97116-GP; 97161-GP; 99285-25; J1644; P9038; P9058